=== PATIENT | female | born 1935 | race Two or more races ===

== ENCOUNTER 2019-03-07 01:23 | Inpatient (IN) | payer MEDICARE, OTHER ==
[~2019-03-07] VITALS: Ht 154.9 cm; Wt 63.2 kg
[2019-03-07] VITALS (7 sets, daily range): BP systolic 107–145; BP diastolic 61–86
[2019-03-07] MEDS ORDERED: [UNRECOGNIZED DRUG - REMARK] (01:39)
[2019-03-07] MEDS ORDERED: Isovue-300 100ml vial INJ PRN ×2 (02:00→15:13)
[2019-03-07 02:04] LABS: HEMATOCRIT 40.5 % (37.0-47.0); HEMOGLOBIN 13.8 G/DL (12.0-16.0); MEAN CORPUSCULAR VOLUME 88 FL (80-99); PLATELET COUNT 103 K/UL (150-450); RED BLOOD COUNT 4.62 M/UL (4.20-5.40); RED CELL DISTRIBUTION WIDTH 12.4 % (11.6-14.8); WHITE BLOOD COUNT 5.9 K/UL (4.8-10.8)
--- NOTE | 2019-03-07 02:05 | Emergency Room Report ---
History of Present Illness General Chief Complaint: Fever Source: Patient, Family Member Present Illness [facility] [place] patient is a 83-year-old female who presented after increased fever. Patient reports having increased temperature since two days ago. Patient had recently returned from a trip to [facility]. Patient had been present in [facility] approximately 3 weeks. She reports having increased lower extremity weakness to both legs since monday. Patient had been having increased dysuria for the past 3 months. She reports having one episode of vomiting. Patient reports having a rash to both legs which she describes as insect bites. Patient had previously had episodes of low back pain. She denies any recent trauma. Patient had normally been able to ambulate with a walker but would have been having increased difficulty with ambulation. Allergies: Coded Allergies: No Known Allergies (Unverified , 03/07/19) Patient History Past Medical History: see triage record Past Surgical History: other - catarract surger Reviewed Nursing Documentation: PMH: Agreed; PSxH: Agreed Review of Systems All Other Systems: negative except mentioned in HPI Physical Exam Vital Signs Date Time Temp Pulse Resp B/P (MAP) Pulse Ox O2 Delivery O2 Flow Rate FiO2 03/07/19 01:29 98.4 86 16 145/86 (105) 95 Room Air General Appearance: alert, GCS 15, non-toxic, obese, Chronically Ill Head: normocephalic Eyes: bilateral eye PERRL ENT: normal ENT inspection, normal voice Neck: limited range of motion Respiratory: lungs clear, normal breath sounds Cardiovascular #1: normal inspection, regular rate, rhythm Gastrointestinal: normal inspection, normal bowel sounds, non tender, soft Neurologic: normal inspection, alert, oriented x3, responsive, aqua ammonia operator III-XII nml as tested, motor weakness - bilateral lower extremity, able to move toes, pulses present, upper extremity normal strength Psychiatric: normal inspection Skin: normal inspection, normal color Medical Decision Making Diagnostic Impression: Primary Impression: Bilateral leg weakness Additional Impressions: Urinary tract infection Febrile illness, acute Dehydration ER Course Patient presents for fever and lower extremity weakness. Differential diagnosis include was not limited to Guillain-Pike, spinal cord injury, cauda equina syndrome, aortic aneurysm, vasculitis because of complexity of patient's case laboratory testing and imaging studies were ordered. Patient was noted to have some evidence of symptoms consistent with urinary infection. Patient was started on IV fluids as well as IV antibiotics. Patient was noted to have some movements to her lower extremity. CT of the chest abdomen pelvis read by radiology showed no acute abdominal or pelvic pathology. Urinary bladder appeared to be thickened. patient was noted to have weakness concerning for possible spinal cord compression and abscess. MRI was ordered and is currently pending. Dr. Jason Castanon was contacted for inpatient management due to panel physician. Labs Test 03/07/19 01:42 03/07/19 01:47 03/07/19 02:25 White Blood Count 5.9 K/UL (4.8-10.8) Red Blood Count 4.62 M/UL (4.20-5.40) Hemoglobin 13.8 G/DL (12.0-16.0) Hematocrit 40.5 % (37.0-47.0) Mean Corpuscular Volume 88 FL (80-99) Mean Corpuscular Hemoglobin 29.9 PG (27.0-31.0) Mean Corpuscular Hemoglobin Concent 34.1 G/DL (32.0-36.0) Red Cell Distribution Width 12.4 % (11.6-14.8) Platelet Count 103 K/UL (150-450) Mean Platelet Volume 8.7 FL (6.5-10.1) Neutrophils (%) (Auto) % (45.0-75.0) Lymphocytes (%) (Auto) % (20.0-45.0) Monocytes (%) (Auto) % (1.0-10.0) Eosinophils (%) (Auto) % (0.0-3.0) Basophils (%) (Auto) % (0.0-2.0) Differential Total Cells Counted 100 Neutrophils % (Manual) 83 % (45-75) Lymphocytes % (Manual) 9 % (20-45) Monocytes % (Manual) 3 % (1-10) Eosinophils % (Manual) 0 % (0-3) Basophils % (Manual) 0 % (0-2) Band Neutrophils 5 % (0-8) Platelet Estimate Decreased Platelet Morphology Normal Erythrocyte Sedimentation Rate 37 MM/HR (0-30) Lactic Acid Level 1.20 mmol/L (0.4-2.0) Troponin I 0.042 ng/mL (0.000-0.056) Sodium Level 138 MMOL/L (136-145) Potassium Level 3.8 MMOL/L (3.5-5.1) Chloride Level 102 MMOL/L (98-107) Carbon Dioxide Level 24 MMOL/L (21-32) Anion Gap 12 mmol/L (5-15) Blood Urea Nitrogen 26 mg/dL (7-18) Creatinine 0.7 MG/DL (0.55-1.30) Estimat Glomerular Filtration Rate mL/min (>60) Glucose Level 124 MG/DL (74-106) Calcium Level 8.4 MG/DL (8.5-10.1) Phosphorus Level 3.2 MG/DL (2.5-4.9) Magnesium Level 1.8 MG/DL (1.8-2.4) Total Bilirubin 0.2 MG/DL (0.2-1.0) Aspartate Amino Transf (AST/SGOT) 95 U/L (15-37) Alanine Aminotransferase (ALT/SGPT) 37 U/L (12-78) Alkaline Phosphatase 130 U/L (46-116) Total Creatine Kinase 314 U/L (26-308) Creatine Kinase MB 1.4 NG/ML (0.0-3.6) Creatine Kinase MB Relative Index 0.4 Total Protein 8.1 G/DL (6.4-8.2) Albumin 3.5 G/DL (3.4-5.0) Globulin 4.6 g/dL Albumin/Globulin Ratio 0.8 (1.0-2.7) Thyroid Stimulating Hormone (TSH) 3.800 uiU/mL (0.358-3.740) Urine Color Yellow Urine Appearance Clear Urine pH 5 (4.5-8.0) Urine Specific [place] 1.025 (1.005-1.035) Urine Protein 3+ (NEGATIVE) Urine Glucose (UA) Negative (NEGATIVE) Urine Ketones 1+ (NEGATIVE) Urine Blood 3+ (NEGATIVE) Urine Nitrite Negative (NEGATIVE) Urine Bilirubin Negative (NEGATIVE) Urine Urobilinogen Normal MG/DL (0.0-1.0) Urine Leukocyte Esterase 1+ (NEGATIVE) Urine RBC 5-10 /HPF (0 - 2) Urine WBC 5-10 /HPF (0 - 2) Urine Squamous Epithelial Cells Moderate /LPF (NONE/OCC) Urine Amorphous Sediment Few /LPF (NONE) Urine Bacteria Few /HPF (NONE) Urine Mucus Occasional /LPF Last Vital Signs Date Time Temp Pulse Resp B/P (MAP) Pulse Ox O2 Delivery O2 Flow Rate FiO2 03/07/19 01:29 98.4 86 16 145/86 (105) 95 Room Air Status: unchanged Disposition: ADMITTED INPATIENT Condition: Serious Referrals: NON PHYSICIAN (PCP) Gomez Villalba MD March 07, 2019 02:04
[2019-03-07 02:16] LABS: ANION GAP 12 mmol/L (5-15); BLOOD UREA NITROGEN 26 mg/dL (7-18); CALCIUM 8.4 MG/DL (8.5-10.1); CARBON DIOXIDE 24 MMOL/L (21-32); CHLORIDE 102 MMOL/L (98-107); CREATININE 0.7 MG/DL (0.55-1.30); POTASSIUM 3.8 MMOL/L (3.5-5.1); SODIUM 138 MMOL/L (136-145)
[2019-03-07 02:28] LABS: ALANINE AMINOTRANSFERASE 37 U/L (12-78); ALBUMIN 3.5 G/DL (3.4-5.0); ALBUMIN/GLOBULIN RATIO 0.8 (1.0-2.7); ALKALINE PHOSPHATASE 130 U/L (46-116); ASPARTATE AMINO TRANSFERASE 95 U/L (15-37); BILIRUBIN,TOTAL 0.2 MG/DL (0.2-1.0); CKMB 1.4 NG/ML (0.0-3.6); CREATINE KINASE 314 U/L (26-308); PHOSPHORUS 3.2 MG/DL (2.5-4.9)
--- NOTE | 2019-03-07 02:30 | NUR ---
ER Nurse Note: Pt came from home with wheelchair c/o weakness in her lower extremites and fever after her trip to [facility]. Per family member, the s/s started around 03/05. Pt a&ox4, VSS with no fever at triage; no sigsn of distress. Pt denies pain, chills. Upper extremites have range of motion, cap refill less than 3 secs, warm to touch. Lower extermities have passive range of motion, cool to touch. Pt incontenent. Skin intact; red rash like spots on her bilateral lower extremities. Pt states them as "insect bites". SLIV RT AC, patent. Villalobos cath inserted size 16 Fr; patent, bag off ground. All orders completed per ERMD orders. All safety measures met; will continue to monitor.
[2019-03-07 02:40] LABS: APPEARANCE,URINE CLEAR; BILIRUBIN, URINE NEGATIVE (NEGATIVE); GLUCOSE, URINE (UA) NEGATIVE (NEGATIVE); KETONES,URINE 1+ (NEGATIVE); LEUKOCYTE ESTERASE ,URINE 1+ (NEGATIVE); NITRITE,URINE NEGATIVE (NEGATIVE); PH,URINE 5 (4.5-8.0); PROTEIN,URINE 3+ (NEGATIVE); UROBILINOGEN,URINE NORMAL MG/DL (0.0-1.0)
[2019-03-07 02:44] LABS: COLOR,URINE YELLOW
[2019-03-07] MEDS ORDERED: cefTRIAXone 1 GM in NS 55 ML IVPB ONE (02:45)
--- NOTE | 2019-03-07 03:16 | NUR ---
ER Nurse Note: Infusing antibiotics vi IV. All orders completed per ERMD orders. Pt at radiology; awaiting pt and results. Pt stable Contact info: Myra Trujillo: Zeina Nieves:
[2019-03-07] MEDS ORDERED: Gadavist 7.5mMol/7.5ml vial IV PRN ×4 (04:30→15:13)
--- NOTE | 2019-03-07 04:56 | NUR ---
ER Nurse Note: Pt calm, cooperative, asleep. Pt VSS, no signs of distress. ERMD ordered MRI; MRI has been contacted and made aware. Pt has a room but cannot be transfered until 0700. All safety measures met; will continue to montior.
[2019-03-07] MEDS ORDERED: Nitroglycerin Subl 0.4mg tab SL PRN ×2 (06:30→15:15)
[2019-03-07] MEDS ORDERED: Miralax 17gm pkt ORAL PRN ×2 (06:30→15:15)
[2019-03-07] MEDS ORDERED: Albuterol/Ipratropium 3ml neb HHN PRN ×2 (06:30→15:15)
[2019-03-07] MEDS ORDERED: Morphine Sulfate 2mg/ml Inj(IV/IM USE ONLY) IVP PRN ×2 (06:30→15:15)
--- NOTE | 2019-03-07 06:51 | NUR ---
ER Nurse Note: Pt calm, asleep, no signs of distress, VSS. Pt awaiting MRI; notifed MRI again and Ofelia, Podiatric Physician aware of delay in transport.
--- NOTE | 2019-03-07 07:23 | NUR ---
ER Nurse Note: Hand off report given to ASHOK Almanza for continuity of care. Pt stable. Endorsed RN that MRI is pending.
--- NOTE | 2019-03-07 07:25 | NUR ---
ED Nurse Note: recieved pt on bed, pt stated that she has lower extremity weakness x 4 days ago, denies any pain. pt is afebrile at the moment. temp 98.3F oraL. Pt went to MRI with tech.
--- NOTE | 2019-03-07 08:00 | NUR ---
ED Nurse Note: pt is admitted to the hospital. report given to christine ledesma
--- NOTE | 2019-03-07 08:13 | NUR ---
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 UTI . DEHYDRATION VS: BP 145/86, P 86, T 98.4, RR 16, SpO2 95 BUN 26, GLUCOSE 124, URINE: Protein 3+, Blood 3+ IS:NS x1L IV CEFTRIAXONE 55ml IVPB ADMITTED TO SDU DCP: RETURN HOME
--- NOTE | 2019-03-07 08:22 | NUR ---
RADIOLOGY DEPT., CHEST X-RAY DONE BY ELVIA HANSON
[2019-03-07] MEDS ORDERED: Cefepime HCl 2 GM in D5W 110 ML IV SCH (09:00)
[2019-03-07] MEDS ORDERED: Vancomycin 1 GM in D5W 275 ML IVPB SCH (09:00)
[2019-03-07] MEDS ORDERED: Heparin 5000 units/ml inj SUBQ SCH (09:00)
--- NOTE | 2019-03-07 09:30 | NUR ---
ED Nurse Note: pt went back from mri, awaiting for reading/result
--- NOTE | 2019-03-07 09:33 | Diagnostic Imaging Report ---
Indication: Chest and abdominal pain Technique: Continuous helical transaxial imaging of the chest, abdomen and pelvis was obtained from the lung bases to the pubic symphysis during intravenous contrast administration. Multiple phases of enhancement obtained. Coronal 2-D reformats were also obtained. Study obtained in a Siemens sensation [address] Automatic Exposure Control was utilized. Total Dose length Product (DLP): 1224.[address] Dose Index Volume (CTDIvol): 15.27,14.04 mGy Comparison: None Findings: CT chest: Mild dependent posterior basal atelectasis demonstrated. There is a large hiatal hernia. Cardiomegaly is present. Aorta is calcified. Small nodes are seen in the axilla nonspecific. CT abdomen pelvis: The liver is moderately low in attenuation consistent with fatty infiltration. Spleen is normal in size. Gallbladder is mildly distended. There is a hypodensity in the right kidney which is probably a cyst. Appendix is normal. Bowel gas pattern is nonobstructive. Atrophic mildly calcified uterus noted. Villalobos catheter in good position. There is prominence and thickening of the wall the urinary bladder. The bladder is not distended well on this. There is no free fluid. The pancreas, spleen, adrenal glands are unremarkable. There is narrowing of intervertebral discs and accompanying endplate osteophyte formation. Hypertrophied facet joints also demonstrated.. IMPRESSION: No acute findings identified within the chest abdomen or pelvis. Large hiatal hernia Cardiomegaly and arterial vascular disease. Moderate fatty liver. Prominence of the urinary bladder wall. Correlate for cystitis. Villalobos catheter in good position. Degenerative changes of the spine Probable right renal cyst The CT scanner at [facility] is accredited by the [employer] and the scans are performed using dose optimization techniques as appropriate to a performed exam including Automatic Exposure control.
--- NOTE | 2019-03-07 10:08 | Diagnostic Imaging Report ---
Indication: 83-year-old female with increasing lower extremity weakness, back pain. Technique: MRI examination of the thoracic and lumbar spine was performed in a 1.5 Brandy magnet. Sequences obtained include sagittal and axial T1 and T2 fast spin echo, and sagittal STIR. Pre/Post gadolinium axial and sagittal T1 FSE w/ fat saturation obtained. Comparison: none Findings: MRI thoracic spine: Bone marrow signal and alignment are normal. The height of the vertebral bodies appears normal. There is no evidence of a compression fracture. There is no evidence of a disc herniation with normal appearance of the intervertebral discs. The spinal canal is widely patent at all levels within the thoracic spine. The spinal cord is normal in appearance. There is no cord edema, mass or myelomalacia. No epidural collection or other abnormal fluid collection identified. Mild hypertrophic spurring involving the thoracic facets noted at multiple levels. There is no evidence of significant foraminal stenosis or cord compression. No abnormal enhancement is identified. T7 vertebral hemangioma noted. There is a large hiatal hernia. Trace basilar pleural effusions are present. MRI lumbar spine: Bone marrow signal is normal. There is no evidence of bone marrow replacement, contusion or edema, fracture. The visualized part of the distal spinal cord is normal in appearance. Conus medullaris is seen at about lower part of L1 vertebra. There is no abnormal cord or nerve root enhancement. There are [id number] degenerative changes which will be described. The L1-2 disc is normal in appearance. There is no stenosis of the canal or foramen. L2-3 shows mild hypertrophy of the lumbar facets. No central or foraminal stenosis demonstrated. L3-4 shows mild central stenosis and narrowing of the lateral recesses due to facet arthropathy. No foraminal stenosis appreciated. L4-5 demonstrates mild central stenosis, narrowing of the lateral recess due to facet arthropathy and redundancy of ligamentum flavum. There is also mild concentric disc bulge associated moderate narrowing of the intervertebral disc and desiccation of the disc with anterolisthesis mild in degree at this level. Moderate right foraminal stenosis noted. L5-S1: The disc is normal in appearance. There is no central stenosis. Facet arthropathy noted. No significant foraminal stenosis appreciated. IMPRESSION: No evidence of compression of the spinal cord or cauda equina. No intrinsic cord abnormality, edema or other neuropathy identified. Moderate degenerative changes of the mid to lower lumbar spine characterized by degenerative disc disease and facet arthropathy. Disease is most severe at L4-5 which shows evidence of central spinal stenosis and narrowing of the lateral recess and moderate right foraminal stenosis. L3-4 Central stenosis also demonstrated. Other incidental findings as above. Please refer to the CT chest abdomen pelvis report as well
--- NOTE | 2019-03-07 10:40 | NUR ---
ED Nurse Note: pt was transfered to sdu 241 and endorsed to christine ledesma. pt was transported by geneva ledesma connected to monitor, pt vs stable.
--- NOTE | 2019-03-07 11:01 | NUR ---
NURSE NOTES: Received patient from ER. Pt is alert and oriented X4 in English. Heart Monitor applied. IV patent and intact. Villalobos is draining well. Pt is afebrile. Bed is in lowest position, side rails up X2, and call light is within reach. Will continue to monitor.
--- NOTE | 2019-03-07 11:30 | NUR ---
NURSE NOTES: Called pharmacy regarding retiming medications as the pt did not arrive to the floor until 11am. Per pharmacist, give "okay to give med, just put note explaining why it was late".
--- NOTE | 2019-03-07 11:46 | Consultation ---
History of Present Illness General Date patient seen: March 07, 2019 Chief Complaint: Fever Present Illness HPI 83 year old female without significant PMHx presented to ER with CC of fever and increasing weakness in lower extremities. She was able previously to walk with a walker but recently she is feeling weaker and unable to walk any more. She is just got back from [facility]. She had episode of fever over there. she was afebrile in ER. She is admitted for further evaluation. Allergies: Coded Allergies: No Known Allergies (Unverified , 03/07/19) Medication History Miscellaneous Medications ["glaucoma eye drops"], (Reported) Patient History Healthcare decision maker Resuscitation status Advanced Directive on File Past Medical/Surgical History Past Medical/Surgical History: (1) No significant past medical history Review of Systems Constitutional: Reports: weakness All Other Systems: negative except mentioned in HPI Physical Exam General Appearance: WD/WN Lines, tubes and drains: peripheral HEENT: normocephalic, anicteric Neck: non-tender, supple, limited range of motion Respiratory/Chest: lungs clear Breasts: no masses Cardiovascular/Chest: normal rate Abdomen: normal bowel sounds Last 24 Hour Vital Signs Date Time Temp Pulse Resp B/P (MAP) Pulse Ox O2 Delivery O2 Flow Rate FiO2 03/07/19 10:40 98.3 82 16 115/75 99 Room Air 03/07/19 09:45 98.3 82 16 115/75 99 Room Air 03/07/19 06:49 98.3 83 18 107/65 99 Room Air 03/07/19 04:12 76 15 125/68 98 Room Air 03/07/19 02:10 86 16 Room Air 03/07/19 02:10 98.4 78 16 145/86 95 Room Air 03/07/19 01:29 98.4 86 16 145/86 (105) 95 Room Air Intake and Output 03/06/19 03/07/19 19:00 07:00 Intake Total 1055 ml Balance 1055 ml Intake IV Total 1055 ml Laboratory Tests Test 03/07/19 01:42 03/07/19 01:47 03/07/19 02:25 White Blood Count 5.9 K/UL (4.8-10.8) Red Blood Count 4.62 M/UL (4.20-5.40) Hemoglobin 13.8 G/DL (12.0-16.0) Hematocrit 40.5 % (37.0-47.0) Mean Corpuscular Volume 88 FL (80-99) Mean Corpuscular Hemoglobin 29.9 PG (27.0-31.0) Mean Corpuscular Hemoglobin Concent 34.1 G/DL (32.0-36.0) Red Cell Distribution Width 12.4 % (11.6-14.8) Platelet Count 103 K/UL (150-450) L Mean Platelet Volume 8.7 FL (6.5-10.1) Neutrophils (%) (Auto) % (45.0-75.0) Lymphocytes (%) (Auto) % (20.0-45.0) Monocytes (%) (Auto) % (1.0-10.0) Eosinophils (%) (Auto) % (0.0-3.0) Basophils (%) (Auto) % (0.0-2.0) Differential Total Cells Counted 100 Neutrophils % (Manual) 83 % (45-75) H Lymphocytes % (Manual) 9 % (20-45) L Monocytes % (Manual) 3 % (1-10) Eosinophils % (Manual) 0 % (0-3) Basophils % (Manual) 0 % (0-2) Band Neutrophils 5 % (0-8) Platelet Estimate Decreased L Platelet Morphology Normal Erythrocyte Sedimentation Rate 37 MM/HR (0-30) H Lactic Acid Level 1.20 mmol/L (0.4-2.0) Troponin I 0.042 ng/mL (0.000-0.056) Sodium Level 138 MMOL/L (136-145) Potassium Level 3.8 MMOL/L (3.5-5.1) Chloride Level 102 MMOL/L (98-107) Carbon Dioxide Level 24 MMOL/L (21-32) Anion Gap 12 mmol/L (5-15) Blood Urea Nitrogen 26 mg/dL (7-18) H Creatinine 0.7 MG/DL (0.55-1.30) Estimat Glomerular Filtration Rate mL/min (>60) Glucose Level 124 MG/DL (74-106) H Calcium Level 8.4 MG/DL (8.5-10.1) L Phosphorus Level 3.2 MG/DL (2.5-4.9) Magnesium Level 1.8 MG/DL (1.8-2.4) Total Bilirubin 0.2 MG/DL (0.2-1.0) Aspartate Amino Transf (AST/SGOT) 95 U/L (15-37) H Alanine Aminotransferase (ALT/SGPT) 37 U/L (12-78) Alkaline Phosphatase 130 U/L (46-116) H Total Creatine Kinase 314 U/L (26-308) H Creatine Kinase MB 1.4 NG/ML (0.0-3.6) Creatine Kinase MB Relative Index 0.4 Total Protein 8.1 G/DL (6.4-8.2) Albumin 3.5 G/DL (3.4-5.0) Globulin 4.6 g/dL Albumin/Globulin Ratio 0.8 (1.0-2.7) L Thyroid Stimulating Hormone (TSH) 3.800 uiU/mL (0.358-3.740) Urine Color Yellow Urine Appearance Clear Urine pH 5 (4.5-8.0) Urine Specific [place] 1.025 (1.005-1.035) Urine Protein 3+ (NEGATIVE) H Urine Glucose (UA) Negative (NEGATIVE) Urine Ketones 1+ (NEGATIVE) H Urine Blood 3+ (NEGATIVE) H Urine Nitrite Negative (NEGATIVE) Urine Bilirubin Negative (NEGATIVE) Urine Urobilinogen Normal MG/DL (0.0-1.0) Urine Leukocyte Esterase 1+ (NEGATIVE) H Urine RBC 5-10 /HPF (0 - 2) H Urine WBC 5-10 /HPF (0 - 2) H Urine Squamous Epithelial Cells Moderate /LPF (NONE/OCC) H Urine Amorphous Sediment Few /LPF (NONE) H Urine Bacteria Few /HPF (NONE) Urine Mucus Occasional /LPF Height (Feet): 5 Height (Inches): 1.00 Weight (Pounds): 150 Medications Current Medications Medications (Trade) Dose Ordered Sig/Lisette Route PRN Reason Start Time Stop Time Status Last Admin Dose Admin Acetaminophen (Tylenol) 650 mg Q4H PRN ORAL fever 03/07/19 06:30 04/06/19 06:29 Albuterol/ Ipratropium (Albuterol/ Ipratropium) 3 ml Q4H PRN HHN Shortness of Breath 03/07/19 06:30 03/12/19 06:29 Cefepime HCl 2 gm/ Dextrose 110 ml @ 220 mls/hr Q24H IV 5/23/19 09:00 03/14/19 08:59 Gadobutrol (Gadavist) 7.5 mmol NOW PRN IV Radiology Procedure 03/07/19 04:30 03/11/19 04:20 Gadobutrol (Gadavist) 7.5 mmol NOW PRN IV Radiology Procedure 03/07/19 06:30 03/11/19 06:25 Heparin Sodium (Porcine) (Heparin 5000 units/ml) 5,000 units EVERY 12 HOURS SUBQ 03/07/19 09:00 04/06/19 08:59 Iopamidol (Isovue-300 100ml) 100 ml NOW PRN INJ Radiology Procedure 03/07/19 02:00 Morphine Sulfate (Morphine Sulfate) 2 mg Q4H PRN IVP Moderate Pain (Pain Scale 4-6) 03/07/19 06:30 03/14/19 06:29 Nitroglycerin (Ntg) 0.4 mg Q5M PRN SL Prn Chest Pain 03/07/19 06:30 04/06/19 06:29 Ondansetron HCl (Zofran) 4 mg Q6H PRN IVP Nausea & Vomiting 03/07/19 06:30 04/06/19 06:29 Polyethylene Glycol (Miralax) 17 gm DAILYPRN PRN ORAL Constipation 03/07/19 06:30 04/06/19 06:29 Temazepam (Restoril) 15 mg HSPRN PRN ORAL Insomnia 03/07/19 06:30 03/14/19 06:29 Vancomycin HCl 1 gm/Dextrose 275 ml @ 183.3 mls/ hr Q24H IVPB 03/07/19 09:00 03/12/19 08:59 03/07/19 11:31 Assessment/Plan Problem List: (1) Febrile illness, acute ICD Codes: R50.9 - Fever, unspecified SNOMED: 004504038 (2) Recent foreign travel ICD Codes: Z78.9 - Other specified health status SNOMED: 348573155 (3) Bilateral leg weakness ICD Codes: R29.898 - Other symptoms and signs involving the musculoskeletal system SNOMED: 2128919 Assessment/Plan: delcid culture iv abx ID evaluation check electrolytes MRI of C and L spine reviewed, no cord compression dvt prophylaxis. Jenny Wilkerson MD March 07, 2019 11:46
--- NOTE | 2019-03-07 12:03 | Diagnostic Imaging Report ---
Indication: Dyspnea Comparison: None A single view chest radiograph was obtained. Findings: Hiatal hernia noted. Lungs are clear. Bones are slightly osteopenic. IMPRESSION: No acute disease
--- NOTE | 2019-03-07 12:09 | NUR ---
NURSE NOTES: Called pharmacy as i mixed vanco instead of cefapime, Ok to discard vanco and they will bring another one up for tomorrow
--- NOTE | 2019-03-07 12:48 | Consultation ---
History of Present Illness General Date patient seen: March 07, 2019 Chief Complaint: Fever Present Illness HPI 83 y/o F with hx of presents to ED on 03/07 with fever, and 3 days onset of increasing Lower extremity weakness. Patient was able to walk with a walker previously but recently feeling weaker and unable to walk any more. She recently got back from [facility]; she had an episode of fever over there. She was in [facility] for 3 weeks. Also endorses increased dysuria for the past 3 months. One episode of vomiting. Rash in both legs which she describes as insect bites Allergies: Coded Allergies: No Known Allergies (Unverified , 03/07/19) Medication History Miscellaneous Medications ["glaucoma eye drops"], (Reported) Patient History Healthcare decision maker Resuscitation status Full Code Advanced Directive on File Patient History Narrative PMhx: as above Shx: reviewed Fhx: non contributory Review of Systems All Other Systems: negative except mentioned in HPI Physical Exam Physical Exam Narrative General Appearance: WD/WN Lines, tubes and drains: peripheral HEENT: normocephalic, anicteric Neck: non-tender, supple, limited range of motion Respiratory/Chest: lungs clear Cardiovascular/Chest: normal rate Abdomen: normal bowel sounds Last 24 Hour Vital Signs Date Time Temp Pulse Resp B/P (MAP) Pulse Ox O2 Delivery O2 Flow Rate FiO2 03/07/19 12:32 Room Air 03/07/19 12:12 Room Air 03/07/19 11:44 73 03/07/19 10:40 98.3 82 16 115/75 99 Room Air 03/07/19 09:45 98.3 82 16 115/75 99 Room Air 03/07/19 06:49 98.3 83 18 107/65 99 Room Air 03/07/19 04:12 76 15 125/68 98 Room Air 03/07/19 02:10 86 16 Room Air 03/07/19 02:10 98.4 78 16 145/86 95 Room Air 03/07/19 01:29 98.4 86 16 145/86 (105) 95 Room Air Intake and Output 03/06/19 03/07/19 19:00 07:00 Intake Total 1055 ml Balance 1055 ml Intake IV Total 1055 ml Laboratory Tests Test 03/07/19 01:42 03/07/19 01:47 03/07/19 02:25 White Blood Count 5.9 K/UL (4.8-10.8) Red Blood Count 4.62 M/UL (4.20-5.40) Hemoglobin 13.8 G/DL (12.0-16.0) Hematocrit 40.5 % (37.0-47.0) Mean Corpuscular Volume 88 FL (80-99) Mean Corpuscular Hemoglobin 29.9 PG (27.0-31.0) Mean Corpuscular Hemoglobin Concent 34.1 G/DL (32.0-36.0) Red Cell Distribution Width 12.4 % (11.6-14.8) Platelet Count 103 K/UL (150-450) L Mean Platelet Volume 8.7 FL (6.5-10.1) Neutrophils (%) (Auto) % (45.0-75.0) Lymphocytes (%) (Auto) % (20.0-45.0) Monocytes (%) (Auto) % (1.0-10.0) Eosinophils (%) (Auto) % (0.0-3.0) Basophils (%) (Auto) % (0.0-2.0) Differential Total Cells Counted 100 Neutrophils % (Manual) 83 % (45-75) H Lymphocytes % (Manual) 9 % (20-45) L Monocytes % (Manual) 3 % (1-10) Eosinophils % (Manual) 0 % (0-3) Basophils % (Manual) 0 % (0-2) Band Neutrophils 5 % (0-8) Platelet Estimate Decreased L Platelet Morphology Normal Erythrocyte Sedimentation Rate 37 MM/HR (0-30) H Lactic Acid Level 1.20 mmol/L (0.4-2.0) Troponin I 0.042 ng/mL (0.000-0.056) Sodium Level 138 MMOL/L (136-145) Potassium Level 3.8 MMOL/L (3.5-5.1) Chloride Level 102 MMOL/L (98-107) Carbon Dioxide Level 24 MMOL/L (21-32) Anion Gap 12 mmol/L (5-15) Blood Urea Nitrogen 26 mg/dL (7-18) H Creatinine 0.7 MG/DL (0.55-1.30) Estimat Glomerular Filtration Rate mL/min (>60) Glucose Level 124 MG/DL (74-106) H Calcium Level 8.4 MG/DL (8.5-10.1) L Phosphorus Level 3.2 MG/DL (2.5-4.9) Magnesium Level 1.8 MG/DL (1.8-2.4) Total Bilirubin 0.2 MG/DL (0.2-1.0) Aspartate Amino Transf (AST/SGOT) 95 U/L (15-37) H Alanine Aminotransferase (ALT/SGPT) 37 U/L (12-78) Alkaline Phosphatase 130 U/L (46-116) H Total Creatine Kinase 314 U/L (26-308) H Creatine Kinase MB 1.4 NG/ML (0.0-3.6) Creatine Kinase MB Relative Index 0.4 Total Protein 8.1 G/DL (6.4-8.2) Albumin 3.5 G/DL (3.4-5.0) Globulin 4.6 g/dL Albumin/Globulin Ratio 0.8 (1.0-2.7) L Thyroid Stimulating Hormone (TSH) 3.800 uiU/mL (0.358-3.740) Urine Color Yellow Urine Appearance Clear Urine pH 5 (4.5-8.0) Urine Specific [place] 1.025 (1.005-1.035) Urine Protein 3+ (NEGATIVE) H Urine Glucose (UA) Negative (NEGATIVE) Urine Ketones 1+ (NEGATIVE) H Urine Blood 3+ (NEGATIVE) H Urine Nitrite Negative (NEGATIVE) Urine Bilirubin Negative (NEGATIVE) Urine Urobilinogen Normal MG/DL (0.0-1.0) Urine Leukocyte Esterase 1+ (NEGATIVE) H Urine RBC 5-10 /HPF (0 - 2) H Urine WBC 5-10 /HPF (0 - 2) H Urine Squamous Epithelial Cells Moderate /LPF (NONE/OCC) H Urine Amorphous Sediment Few /LPF (NONE) H Urine Bacteria Few /HPF (NONE) Urine Mucus Occasional /LPF Height (Feet): 5 Height (Inches): 1.00 Weight (Pounds): 150 Medications Current Medications Medications (Trade) Dose Ordered Sig/Lisette Route PRN Reason Start Time Stop Time Status Last Admin Dose Admin Acetaminophen (Tylenol) 650 mg Q4H PRN ORAL fever 03/07/19 06:30 04/06/19 06:29 Albuterol/ Ipratropium (Albuterol/ Ipratropium) 3 ml Q4H PRN HHN Shortness of Breath 03/07/19 06:30 03/12/19 06:29 Cefepime HCl 2 gm/ Dextrose 110 ml @ 220 mls/hr Q24H IV 03/07/19 09:00 03/14/19 08:59 03/07/19 11:35 Gadobutrol (Gadavist) 7.5 mmol NOW PRN IV Radiology Procedure 03/07/19 04:30 03/11/19 04:20 Gadobutrol (Gadavist) 7.5 mmol NOW PRN IV Radiology Procedure 03/07/19 06:30 03/11/19 06:25 Heparin Sodium (Porcine) (Heparin 5000 units/ml) 5,000 units EVERY 12 HOURS SUBQ 03/07/19 09:00 04/06/19 08:59 Iopamidol (Isovue-300 100ml) 100 ml NOW PRN INJ Radiology Procedure 03/07/19 02:00 Morphine Sulfate (Morphine Sulfate) 2 mg Q4H PRN IVP Moderate Pain (Pain Scale 4-6) 03/07/19 06:30 03/14/19 06:29 Nitroglycerin (Ntg) 0.4 mg Q5M PRN SL Prn Chest Pain 03/07/19 06:30 04/06/19 06:29 Ondansetron HCl (Zofran) 4 mg Q6H PRN IVP Nausea & Vomiting 03/07/19 06:30 04/06/19 06:29 Polyethylene Glycol (Miralax) 17 gm DAILYPRN PRN ORAL Constipation 03/07/19 06:30 04/06/19 06:29 Temazepam (Restoril) 15 mg HSPRN PRN ORAL Insomnia 03/07/19 06:30 03/14/19 06:29 Vancomycin HCl 1 gm/Dextrose 275 ml @ 183.3 mls/ hr Q24H IVPB 03/07/19 09:00 03/12/19 08:59 03/07/19 11:31 Assessment/Plan Assessment/Plan: Abx: Ceftriaxone x1 03/07 IV Vancomycin 03/07- Cefepime 03/07- Assessment: Febrile illness (not currently febrile) LE weakness- r/o GBS, r/o ZIka, dengue (given recent travel to [facility]) -MRI t/ L spine w/wo: No evidence of compression of the spinal cord or cauda equina. No intrinsic cord abnormality, edema or other neuropathy identified. Moderate degenerative changes of the mid to lower lumbar spine characterized by degenerative disc disease and facet arthropathy. Disease is most severe at L4-5 which shows evidence of central spinal stenosis and narrowing of the lateral recess and moderate right foraminal stenosis. L3-4 Central stenosis also demonstrated. Other incidental findings as above. -CT: c/abd/p w/: No acute findings identified within the chest abdomen or pelvis. Large hiatal hernia. Cardiomegaly and arterial vascular disease. Moderate fatty liver. Prominence of the urinary bladder wall. Correlate for cystitis. Villalobos catheter in good position.Degenerative changes of the spine. Probable right renal cyst -CXR: No acute disease Plan: -Continue empiric IV Vancomycin #1 and switch Cefepime #1 to Ceftriaxone for now pending LP -will d/c if CSF not consistent with bacterial meningitis which i have low suspicion for -Lumbar puncture- patient currently refusing LP- I explained why it is needed and risks and benefits. Daughter will talk with patient in more detail to see if patient will be agreeable with procedure. -CSF fluid analysis, culture, VDRL, Cocci, CrAg, Dengue, Zika, [place] PCR , oligoclonal bands, MBP, WNV ab -HIV ab sc and VL, RPR, Cocci ab, CrAg, Zika/Dengue/[place]ungu[place] serology, influenza sc, WNV ab serum -f/u cx -Monitor CBC/CMP, temperatures -Neuro eval Thank you for this consulation. [facility] continue to follow along with you. Discussed with Olga Lidia Myers M.D. March 07, 2019 12:47
--- NOTE | 2019-03-07 13:03 | Consultation ---
History of Present Illness General Date patient seen: March 07, 2019 Chief Complaint: LE Weakness/ Fever Present Illness HPI Rosa Cho is a 83 year old Italian speaking female without significant PMHx who presented to ER with CC of fever and increasing weakness in lower extremities. She was able previously to walk with a walker but recently she is feeling weaker and unable to walk any more. She also reports that she recently traveled to [facility] and experienced an episode of fever over there. She is admitted for further workup at this time. She is alert and oriented, able to provide her own history. She also admits to some baseline left leg weakness, stating that she was using a rollator/ 4 wf to ambulate previously but has recently become even to weak to do that. Allergies: Coded Allergies: No Known Allergies (Unverified , 03/07/19) Medication History Miscellaneous Medications ["glaucoma eye drops"], (Reported) Patient History History Provided By: Patient, Medical Record Healthcare decision maker Resuscitation status Full Code Advanced Directive on File Past Medical/Surgical History Past Medical/Surgical History: (1) No significant past medical history Social History Social History: (1) Recent foreign travel Review of Systems Constitutional: Reports: see HPI, chills, sweats, fever, weakness Eye: Denies: no symptoms, see HPI, eye pain, blurred vision, tearing, double vision, nose pain, nose congestion, acuity changes, discharge, other ENT: Denies: no symptoms, see HPI, ear pain, ear discharge, nose pain, nose congestion, throat pain, throat swelling, mouth pain, hearing loss, nasal discharge, other Respiratory: Denies: no symptoms, see HPI, cough, orthopnea, shortness of breath, stridor, wheezing, NEELY, sputum, other Cardiovascular: Denies: no symptoms, see HPI, chest pain, edema, palpitations, syncope, PND, other Gastrointestinal: Denies: no symptoms, see HPI, abdominal pain, constipation, diarrhea, nausea, vomiting, melena, hematemesis, other Genitourinary: Denies: no symptoms, see HPI, discharge, dysuria, frequency, hematuria, pain, retention, incontinence, urgency, vag bleed/dc, other Musculoskeletal: Reports: other; Denies: no symptoms, see HPI, back pain, gout , joint pain, joint swelling, muscle pain, muscle stiffness Skin: Denies: no symptoms, see HPI, rash, change in color, change in hair/nails , dryness, lesions, other Psychiatric: Denies: no symptoms, see HPI, prior hx, anxiety, depressed feelings, emotional problems, SI, HI, hallucinations, other Neurological: Reports: focal weakness - LE weakness, left weakness > right at baseline ; Denies: no symptoms, see HPI, headache, numbness, paresthesia, seizure, tingling, tremors, syncope, dizziness, other Endocrine: Denies: no symptoms, see HPI, excessive sweating, flushing, intolerance to temperature, increased thirst, increased urine, unexplained weight loss, other Hematologic/Lymphatic: Denies: no symptoms, see HPI, anemia, blood clots, easy bleeding, easy bruising, swollen glands, diathesis, other Physical Exam General Appearance: WD/WN, no apparent distress, alert, alert oriented x3 Lines, tubes and drains: peripheral HEENT: normocephalic, atraumatic, anicteric, mucous membranes moist, PERRL, EOMI, supple, no JVD Neck: non-tender Respiratory/Chest: lungs clear, normal breath sounds, no respiratory distress, no accessory muscle use Cardiovascular/Chest: normal peripheral pulses, no JVD Extremities: normal range of motion, non-tender, normal inspection, no calf tenderness, normal capillary refill, non-pitting, no edema, no cyanosis Skin Exam: normal pigmentation, warm/dry 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 No facial weakness or tongue deviation Speech is in Italian but all normal. Last 24 Hour Vital Signs Date Time Temp Pulse Resp B/P (MAP) Pulse Ox O2 Delivery O2 Flow Rate FiO2 03/07/19 12:46 97.0 75 20 132/61 (84) 96 03/07/19 12:32 Room Air 03/07/19 12:12 Room Air 03/07/19 11:44 73 03/07/19 10:45 97.8 77 18 118/77 (91) 100 03/07/19 10:40 98.3 82 16 115/75 99 Room Air 03/07/19 09:45 98.3 82 16 115/75 99 Room Air 03/07/19 06:49 98.3 83 18 107/65 99 Room Air 03/07/19 04:12 76 15 125/68 98 Room Air 03/07/19 02:10 86 16 Room Air 03/07/19 02:10 98.4 78 16 145/86 95 Room Air 03/07/19 01:29 98.4 86 16 145/86 (105) 95 Room Air Intake and Output 03/06/19 03/07/19 19:00 07:00 Intake Total 1055 ml Balance 1055 ml Intake IV Total 1055 ml Laboratory Tests Test 03/07/19 01:42 03/07/19 01:47 03/07/19 02:25 White Blood Count 5.9 K/UL (4.8-10.8) Red Blood Count 4.62 M/UL (4.20-5.40) Hemoglobin 13.8 G/DL (12.0-16.0) Hematocrit 40.5 % (37.0-47.0) Mean Corpuscular Volume 88 FL (80-99) Mean Corpuscular Hemoglobin 29.9 PG (27.0-31.0) Mean Corpuscular Hemoglobin Concent 34.1 G/DL (32.0-36.0) Red Cell Distribution Width 12.4 % (11.6-14.8) Platelet Count 103 K/UL (150-450) L Mean Platelet Volume 8.7 FL (6.5-10.1) Neutrophils (%) (Auto) % (45.0-75.0) Lymphocytes (%) (Auto) % (20.0-45.0) Monocytes (%) (Auto) % (1.0-10.0) Eosinophils (%) (Auto) % (0.0-3.0) Basophils (%) (Auto) % (0.0-2.0) Differential Total Cells Counted 100 Neutrophils % (Manual) 83 % (45-75) H Lymphocytes % (Manual) 9 % (20-45) L Monocytes % (Manual) 3 % (1-10) Eosinophils % (Manual) 0 % (0-3) Basophils % (Manual) 0 % (0-2) Band Neutrophils 5 % (0-8) Platelet Estimate Decreased L Platelet Morphology Normal Erythrocyte Sedimentation Rate 37 MM/HR (0-30) H Lactic Acid Level 1.20 mmol/L (0.4-2.0) Troponin I 0.042 ng/mL (0.000-0.056) Sodium Level 138 MMOL/L (136-145) Potassium Level 3.8 MMOL/L (3.5-5.1) Chloride Level 102 MMOL/L (98-107) Carbon Dioxide Level 24 MMOL/L (21-32) Anion Gap 12 mmol/L (5-15) Blood Urea Nitrogen 26 mg/dL (7-18) H Creatinine 0.7 MG/DL (0.55-1.30) Estimat Glomerular Filtration Rate mL/min (>60) Glucose Level 124 MG/DL (74-106) H Calcium Level 8.4 MG/DL (8.5-10.1) L Phosphorus Level 3.2 MG/DL (2.5-4.9) Magnesium Level 1.8 MG/DL (1.8-2.4) Total Bilirubin 0.2 MG/DL (0.2-1.0) Aspartate Amino Transf (AST/SGOT) 95 U/L (15-37) H Alanine Aminotransferase (ALT/SGPT) 37 U/L (12-78) Alkaline Phosphatase 130 U/L (46-116) H Total Creatine Kinase 314 U/L (26-308) H Creatine Kinase MB 1.4 NG/ML (0.0-3.6) Creatine Kinase MB Relative Index 0.4 Total Protein 8.1 G/DL (6.4-8.2) Albumin 3.5 G/DL (3.4-5.0) Globulin 4.6 g/dL Albumin/Globulin Ratio 0.8 (1.0-2.7) L Thyroid Stimulating Hormone (TSH) 3.800 uiU/mL (0.358-3.740) Urine Color Yellow Urine Appearance Clear Urine pH 5 (4.5-8.0) Urine Specific [place] 1.025 (1.005-1.035) Urine Protein 3+ (NEGATIVE) H Urine Glucose (UA) Negative (NEGATIVE) Urine Ketones 1+ (NEGATIVE) H Urine Blood 3+ (NEGATIVE) H Urine Nitrite Negative (NEGATIVE) Urine Bilirubin Negative (NEGATIVE) Urine Urobilinogen Normal MG/DL (0.0-1.0) Urine Leukocyte Esterase 1+ (NEGATIVE) H Urine RBC 5-10 /HPF (0 - 2) H Urine WBC 5-10 /HPF (0 - 2) H Urine Squamous Epithelial Cells Moderate /LPF (NONE/OCC) H Urine Amorphous Sediment Few /LPF (NONE) H Urine Bacteria Few /HPF (NONE) Urine Mucus Occasional /LPF Height (Feet): 5 Height (Inches): 1.00 Weight (Pounds): 150 Medications Current Medications Medications (Trade) Dose Ordered Sig/Lisette Route PRN Reason Start Time Stop Time Status Last Admin Dose Admin Acetaminophen (Tylenol) 650 mg Q4H PRN ORAL fever 03/07/19 06:30 04/06/19 06:29 Albuterol/ Ipratropium (Albuterol/ Ipratropium) 3 ml Q4H PRN HHN Shortness of Breath 03/07/19 06:30 03/12/19 06:29 Cefepime HCl 2 gm/ Dextrose 110 ml @ 220 mls/hr Q24H IV 03/07/19 09:00 03/14/19 08:59 03/07/19 11:35 Gadobutrol (Gadavist) 7.5 mmol NOW PRN IV Radiology Procedure 03/07/19 04:30 03/11/19 04:20 Gadobutrol (Gadavist) 7.5 mmol NOW PRN IV Radiology Procedure 03/07/19 06:30 03/11/19 06:25 Heparin Sodium (Porcine) (Heparin 5000 units/ml) 5,000 units EVERY 12 HOURS SUBQ 03/07/19 09:00 04/06/19 08:59 Iopamidol (Isovue-300 100ml) 100 ml NOW PRN INJ Radiology Procedure 03/07/19 02:00 Morphine Sulfate (Morphine Sulfate) 2 mg Q4H PRN IVP Moderate Pain (Pain Scale 4-6) 03/07/19 06:30 03/14/19 06:29 Nitroglycerin (Ntg) 0.4 mg Q5M PRN SL Prn Chest Pain 03/07/19 06:30 04/06/19 06:29 Ondansetron HCl (Zofran) 4 mg Q6H PRN IVP Nausea & Vomiting 03/07/19 06:30 04/06/19 06:29 Polyethylene Glycol (Miralax) 17 gm DAILYPRN PRN ORAL Constipation 03/07/19 06:30 04/06/19 06:29 Temazepam (Restoril) 15 mg HSPRN PRN ORAL Insomnia 03/07/19 06:30 03/14/19 06:29 Vancomycin HCl 1 gm/Dextrose 275 ml @ 183.3 mls/ hr Q24H IVPB 03/07/19 09:00 03/12/19 08:59 03/07/19 11:31 Assessment/Plan Problem List: (1) Thrombocytopenia ICD Codes: D69.6 - Thrombocytopenia, unspecified SNOMED: 186350238 (2) Dehydration ICD Codes: E86.0 - Dehydration SNOMED: 32871454 (3) Urinary tract infection ICD Codes: N39.0 - Urinary tract infection, site not specified SNOMED: 49776428 (4) Bilateral leg weakness Assessment & Plan: MRI thoracic spine: Bone marrow signal and alignment are normal. The height of the vertebral bodies appears normal. There is no evidence of a compression fracture. There is no evidence of a disc herniation with normal appearance of the intervertebral discs. The spinal canal is widely patent at all levels within the thoracic spine. The spinal cord is normal in appearance. There is no cord edema, mass or myelomalacia. No epidural collection or other abnormal fluid collection identified. Mild hypertrophic spurring involving the thoracic facets noted at multiple levels. There is no evidence of significant foraminal stenosis or cord compression. No abnormal enhancement is identified. T7 vertebral hemangioma noted. There is a large hiatal hernia. Trace basilar pleural effusions are present. MRI lumbar spine: Bone marrow signal is normal. There is no evidence of bone marrow replacement, contusion or edema, fracture. The visualized part of the distal spinal cord is normal in appearance. Conus medullaris is seen at about lower part of L1 vertebra. There is no abnormal cord or nerve root enhancement. There are [id number] degenerative changes which will be described. The L1-2 disc is normal in appearance. There is no stenosis of the canal or foramen. L2-3 shows mild hypertrophy of the lumbar facets. No central or foraminal stenosis demonstrated. L3-4 shows mild central stenosis and narrowing of the lateral recesses due to facet arthropathy. No foraminal stenosis appreciated. L4-5 demonstrates mild central stenosis, narrowing of the lateral recess due to facet arthropathy and redundancy of ligamentum flavum. There is also mild concentric disc bulge associated moderate narrowing of the intervertebral disc and desiccation of the disc with anterolisthesis mild in degree at this level. Moderate right foraminal stenosis noted. L5-S1: The disc is normal in appearance. There is no central stenosis. Facet arthropathy noted. No significant foraminal stenosis appreciated. IMPRESSION: No evidence of compression of the spinal cord or cauda equina. No intrinsic cord abnormality, edema or other neuropathy identified. Moderate degenerative changes of the mid to lower lumbar spine characterized by degenerative disc disease and facet arthropathy. Disease is most severe at L4-5 which shows evidence of central spinal stenosis and narrowing of the lateral recess and moderate right foraminal stenosis. L3-4 Central stenosis also demonstrated. Other incidental findings as above. Please refer to the CT chest abdomen pelvis report as well No clear evidence for weakness demonstrated in patient clinically given normal cord signal on MRI ICD Codes: R29.898 - Other symptoms and signs involving the musculoskeletal system SNOMED: 9531693 (5) Febrile illness, acute Assessment & Plan: Consider LP if patient becomes febrile, especially without evidence of peripheral leukocytosis. DDX Encephalitis / Meningitis vs Ischemic Stroke ICD Codes: R50.9 - Fever, unspecified SNOMED: 468344480 Status: stable Assessment/Plan: Q4 Hour Neuro Obs PT/OT Evals MRI Brain w/o contrast Maintain normothermia Maintain normoglycemia Check TSH Check B12 Check LFTs, BUN , Cr Troponin Lipids Maintain SBP<140 IV Hydration Swallow Karmen Umanzor N.P. March 07, 2019 13:03
--- NOTE | 2019-03-07 13:40 | NUR ---
NURSE NOTES: Pt is refusing the spinal tap procedure. She stated that she has had it done in the past and does not want to have to experience the feeling again. I called Dr. garcia to let her know. Will await call back.
--- NOTE | 2019-03-07 13:46 | NUR ---
NURSE NOTES: Received call from Dr. Renee. Per doctor, She will come to speak with the patient regarding procedure
--- NOTE | 2019-03-07 15:30 | NUR ---
TRANSFER TO FLOOR: Patient transferred to , per Dr. Wilkerson's request. Report given to ASHOK Lebron. Belongings and medications by patients bedside. Family is at bedside. Pt stable at time of transfer.
--- NOTE | 2019-03-07 15:42 | NUR ---
*-* INSURANCE *-* ALL CLINICALS AND REVIEWS HAVE BEEN FAXED TO: [facility] NO PHOTO LAB SPECIALIST ASSIGNED AT THIS TIME PLEASE FAX THE REVIEW/CLINICAL [phone]...REVIEW/CLINICAL Addendum: 03/07/19 at 1554 by JYOTI KEARNEY CM CORRECT INFORMATION TO SEND CLINICALS GIVE TO ME BY NCM WHOM CALLED FROM [facility]. [facility] MENDEL:REJI P:[phone] F:[phone]
--- NOTE | 2019-03-07 16:03 | NUR ---
NURSE NOTES: Patient received int o room 421 bed 1,patient is alert,dominguez catheter and and draining clear yellow. Patient off floor for MRI
--- NOTE | 2019-03-07 19:30 | NUR ---
NURSE NOTES: Patient had a moderate amount of dark brown emesis,patient will be given medication fo vomiting as ordered. Ordered noted for dominguez catheter will be discontinued as ordered.Bed alarm on,call light within reach.
--- NOTE | 2019-03-07 19:35 | NUR ---
HAND-OFF: Report given to FABIEN ONOFRE RN.
--- NOTE | 2019-03-07 19:45 | History and Physical Report ---
DATE OF ADMISSION: 03/07/2019 DATE AND TIME SEEN: 03/07/2019 at 1 p.m. CONSULTANTS: 1. Jenny Wilkerson M.D. 2. Buck Soriano M.D. 3. CHIEF COMPLAINT: Fever, UTI, dysuria, and weakness. BRIEF HISTORY: The patient is an 83-year-old female, who lives at home with family, presents with fever for three days, some pain and lower extremity weakness as well. The patient came to [place], diagnosed with the above, admitted to [facility] for further care. Currently, calm in bed, slightly weak. No complaint. REVIEW OF SYSTEMS: No chest pain. No shortness of breath. No nausea, vomiting, or diarrhea. PAST MEDICAL HISTORY: Weakness. PAST SURGICAL HISTORY: None. ALLERGIES: Denies. MEDICATIONS: Include ceftriaxone, cefepime, vancomycin, heparin, albuterol, Tylenol, morphine, temazepam, and nitroglycerin. SOCIAL HISTORY: No smoking. No alcohol. No intravenous drug abuse. FAMILY HISTORY: Noncontributory. PHYSICAL EXAMINATION: GENERAL: Calm in bed, oriented x3, slightly weak. VITAL SIGNS: Temperature 97 degrees, pulse 85, respirations 20, and blood pressure 132/61. CARDIOVASCULAR: No murmur. LUNGS: Distant and clear. ABDOMEN: Bowel sounds positive. Nontender and nondistended. EXTREMITIES: Showed no cyanosis, clubbing or edema. NEUROLOGIC: The patient moves all extremities, slightly weak. LABORATORY DATA: Labs at this time show platelets 103, thrombocytopenia. ESR 37. BMP show BUN 26. Calcium 8.4. AST 95, alkaline phosphatase 130. Total CK 314. TSH 3.8. Urinalysis shows 1+ leukocyte esterase, 3+ protein. ASSESSMENT: 1. Fever. 2. Urinary tract infection. 3. Dysuria. 4. Bilateral lower extremity weakness, some slight pain. 5. Hypothyroid. 6. Weakness. PLAN: 1. PT and dietary evaluation. 2. Antibiotics per Infectious Disease. 3. Pain control. 4. Neuro and ID followup. 5. We will continue to follow the patient. 6. CBC and BMP in the morning. Jason Castanon D.O. DR: CARMEN JOB#: [id number] CC:
--- NOTE | 2019-03-07 19:50 | NUR ---
NURSE NOTES: Received a report from ASHOK Lebron. Pt is in stable condition. Able to make needs known in Vietnamese. IV site is patent and intact. Bed in lowest position. Bed alarm is on. Call light within reach. Will continue to monitor.
[2019-03-07] MEDS: Heparin 5000 units/ml inj SUBQ SCH (20:11)
[2019-03-07] MEDS ORDERED: Vancomycin 1.5 GM in D5W 275 ML IVPB SCH ×4 (21:00)
[2019-03-08] VITALS: BP 112/73
[2019-03-08] MEDS: cefTRIAXone 2 GM in D5W 55 ML IVPB SCH (02:42)
[2019-03-08] MEDS ORDERED: cefTRIAXone 2 GM in D5W 55 ML IVPB SCH (03:00)
[2019-03-08 04:00] VITALS: BP 127/79
--- NOTE | 2019-03-08 07:37 | NUR ---
HAND-OFF: Report given to Michelle Perez RN.
--- NOTE | 2019-03-08 07:41 | NUR ---
NURSE NOTES: Patient received resting in bed, eating breakfast. Alert and oriented, breathing unlabored on room air. Bedpan by the bedside. IV on right arm patent and intact. Bed locked in lowest position, bed alarm is on. Call light placed within reach. Will continue to monitor.
[2019-03-08 08:00] VITALS: BP 119/64
[2019-03-08 08:06] LABS: ALANINE AMINOTRANSFERASE 33 U/L (12-78); ALBUMIN 2.6 G/DL (3.4-5.0); ALBUMIN/GLOBULIN RATIO 0.7 (1.0-2.7); ALKALINE PHOSPHATASE 112 U/L (46-116); ANION GAP 9 mmol/L (5-15); ASPARTATE AMINO TRANSFERASE 113 U/L (15-37); BILIRUBIN,TOTAL 0.1 MG/DL (0.2-1.0); BLOOD UREA NITROGEN 17 mg/dL (7-18); CALCIUM 7.7 MG/DL (8.5-10.1); CARBON DIOXIDE 27 MMOL/L (21-32); CHLORIDE 104 MMOL/L (98-107); CREATININE 0.6 MG/DL (0.55-1.30); POTASSIUM 3.7 MMOL/L (3.5-5.1); SODIUM 139 MMOL/L (136-145)
[2019-03-08] MEDS: Heparin 5000 units/ml inj SUBQ SCH (08:24)
[2019-03-08 08:54] LABS: HEMOGLOBIN 12.2 G/DL (12.0-16.0); MEAN CORPUSCULAR VOLUME 88 FL (80-99); PLATELET COUNT 23 K/UL (150-450); RED BLOOD COUNT 4.07 M/UL (4.20-5.40); RED CELL DISTRIBUTION WIDTH 12.7 % (11.6-14.8); WHITE BLOOD COUNT 10.5 K/UL (4.8-10.8)
--- NOTE | 2019-03-08 10:39 | NUR ---
*-* INSURANCE -* UPDATED CLINICALS HAVE BEENF AXED TO: [facility] NCM:REJI P:[phone] F:[phone]
--- NOTE | 2019-03-08 10:59 | Diagnostic Imaging Report ---
Indication: Generalized weakness. Difficulty ambulating. Nausea and vomiting Technique: The head was imaged in a 1.5 Brandy magnet. Sequences obtained include sagittal and axial T1 FLAIR, axial T2 fast spin echo with fat saturation, axial T2 FLAIR, diffusion and ADC map. Comparison: None Findings: The T2 FLAIR sequence demonstrates some areas of sulcal hyperintensity particularly in the posterior aspects of both cerebral hemispheres but also within the right frontal region. The main concern is that there is an occult subarachnoid bleed. There is no mass effect or edema within the brain. The ventricles appear normal. Basal cisterns are normal. Flow voids are seen within the superior sagittal sinus, visualized part of the basilar artery and both ICA. There is no abnormal intra-axial or extra-axial fluid collection. As stated previously there is no diffusion restriction. Empty sella is noted. There is a T2 hyperintense signal within the right mastoid bone and some mucosal thickening within paranasal sinuses. IMPRESSION: Abnormal T2 hyperintense signal within cerebral sulci bilaterally predominating in the posterior part of the cerebrum. This is nonspecific, but the main concern would be an occult subarachnoid bleed. Differential diagnosis includes meningitis, leptomeningeal carcinomatosis or thickening, artifact related to elevated blood pool to CSF ratio. There is no evidence of diffusion restriction i.e. acute stroke to account for the finding. Further evaluation with gadolinium-enhanced MRI is recommended. Clinical correlation also needed. Noncontrast CT of the head is also recommended. Sinus disease. Right mastoiditis.
[2019-03-08 12:00] VITALS: BP 108/68
[2019-03-08] MEDS ORDERED: Vancomycin 1 GM in D5W 275 ML IVPB SCH (12:00)
--- NOTE | 2019-03-08 12:24 | Pulmonology Progress Note ---
Assessment/Plan Problems: (1) Febrile illness, acute (2) Recent foreign travel (3) Bilateral leg weakness Assessment/Plan all reviewed afebrile now f/u neuro recommendation check cultures, blood cultures are negative so far. pt/ot might need placement. Subjective ROS Limited/Unobtainable: No Constitutional: Reports: no symptoms HEENT: Repors: no symptoms Respiratory: Reports: no symptoms Allergies: Coded Allergies: No Known Allergies (Unverified , 03/07/19) Objective Last 24 Hour Vital Signs Date Time Temp Pulse Resp B/P (MAP) Pulse Ox O2 Delivery O2 Flow Rate FiO2 03/08/19 12:00 98.1 78 20 108/68 (81) 96 03/08/19 09:00 Room Air 03/08/19 08:00 97.8 85 20 119/64 (82) 96 03/08/19 04:00 98.0 74 18 127/79 (95) 99 03/08/19 00:00 98.1 62 16 112/73 (86) 98 03/07/19 21:00 Room Air 03/07/19 20:00 97.8 77 18 128/85 (99) 96 03/07/19 16:00 Room Air 03/07/19 12:46 97.0 75 20 132/61 (84) 96 03/07/19 12:32 Room Air Intake and Output 03/07/19 03/08/19 19:00 07:00 Intake Total 1100 ml 55 ml Output Total 300 ml 2 ml Balance 800 ml 53 ml Intake IV Total 1100 ml 55 ml Output Urine Total 100 ml 2 ml Stool Total 200 ml General Appearance: WD/WN HEENT: normocephalic, anicteric Respiratory/Chest: chest wall non-tender, lungs clear Cardiovascular: normal peripheral pulses, normal rate Abdomen: normal bowel sounds, soft, non tender Genitourinary: normal external genitalia Lymphatic: no neck adenopathy Musculoskeletal: no effusion Microbiology Date/Time Source Procedure Growth Status 03/07/19 01:42 Blood Blood Culture - Preliminary NO GROWTH AFTER 24 HOURS Resulted 03/07/19 01:30 Blood Blood Culture - Preliminary NO GROWTH AFTER 24 HOURS Resulted 03/07/19 22:05 Nasopharynx - Final Complete 03/07/19 22:05 Nasopharynx - Final Complete Laboratory Tests 03/07/19 17:10: CSF Myelin Basic Protein [Pending], CSF Oligoclonal Bands [Pending], CSF VDRL [ Pending], CSF Coccidioides Antibody [Pending], Rapid Plasma Reagin Non reactive , Cryptococcus Antigen [Pending], HIV-1 RNA (PCR) log10 Value [Pending], HIV-1 RNA Ultraquantitative (PCR) [Pending], HIV (1&2) Antibody Rapid Negative 03/08/19 07:06: Sodium Level 139, Potassium Level 3.7, Chloride Level 104, Carbon Dioxide Level 27, Anion Gap 9, Blood Urea Nitrogen 17, Creatinine 0.6, Estimat Glomerular Filtration Rate , Glucose Level 98, Calcium Level 7.7L, Total Bilirubin 0.1L, Aspartate Amino Transf (AST/SGOT) 113H, Alanine Aminotransferase (ALT/SGPT) 33, Alkaline Phosphatase 112, Total Protein 6.2L, Albumin 2.6L, Globulin 3.6, Albumin/Globulin Ratio 0.7L, Coccidioides Antibody (Comp Fix) [Pending], West Nile Virus IgG Antibody [Pending], West Nile Virus IgM Antibody [Pending] 03/08/19 08:40: White Blood Count 10.5#, Red Blood Count 4.07L, Hemoglobin 12.2, Hematocrit 36.0L, Mean Corpuscular Volume 88, Mean Corpuscular Hemoglobin 29.9, Mean Corpuscular Hemoglobin Concent 33.8, Red Cell Distribution Width 12.7, Platelet Count 23#L, Mean Platelet Volume 8.0, Neutrophils (%) (Auto) , Lymphocytes (%) ( Auto) , Monocytes (%) (Auto) , Eosinophils (%) (Auto) , Basophils (%) (Auto) , Differential Total Cells Counted 100, Neutrophils % (Manual) 59, Lymphocytes % ( Manual) 19L, Monocytes % (Manual) 7, Eosinophils % (Manual) 0, Basophils % ( Manual) 0, Myelocytes % 1H, Band Neutrophils 14H, Platelet Estimate DecreasedL, Platelet Morphology Normal, Red Blood Cell Morphology Normal Current Medications Medications (Trade) Dose Ordered Sig/Lisette Route PRN Reason Start Time Stop Time Status Last Admin Dose Admin Acetaminophen (Tylenol) 650 mg Q4H PRN ORAL fever (temp>100.5F) 03/07/19 15:15 04/06/19 15:14 Albuterol/ Ipratropium (Albuterol/ Ipratropium) 3 ml Q4H PRN HHN Shortness of Breath 03/07/19 15:15 03/12/19 15:14 Ceftriaxone Sodium 2 gm/ Dextrose 55 ml @ 110 mls/hr Q24H IVPB 03/08/19 03:00 03/15/19 02:59 03/08/19 02:42 Gadobutrol (Gadavist) 7.5 mmol NOW PRN IV Radiology Procedure 03/07/19 15:13 03/09/19 15:12 Gadobutrol (Gadavist) 7.5 mmol NOW PRN IV Radiology Procedure 03/07/19 15:13 03/09/19 15:12 Heparin Sodium (Porcine) (Heparin 5000 units/ml) 5,000 units EVERY 12 HOURS SUBQ 03/07/19 21:00 04/06/19 08:59 Iopamidol (Isovue-300 100ml) 100 ml NOW PRN INJ Radiology Procedure 03/07/19 15:13 03/09/19 15:12 Morphine Sulfate (Morphine Sulfate) 2 mg Q4H PRN IVP Moderate Pain (Pain Scale 4-6) 03/07/19 15:15 03/14/19 15:14 Nitroglycerin (Ntg) 0.4 mg Q5M PRN SL Prn Chest Pain 03/07/19 15:15 04/06/19 15:14 Ondansetron HCl (Zofran) 4 mg Q6H PRN IVP Nausea & Vomiting 03/07/19 15:15 04/06/19 15:14 03/07/19 20:14 Polyethylene Glycol (Miralax) 17 gm DAILYPRN PRN ORAL Constipation 03/07/19 15:15 04/06/19 15:14 Temazepam (Restoril) 15 mg HSPRN PRN ORAL Insomnia 03/07/19 20:00 03/14/19 19:59 Vancomycin HCl (Vanco rx to dose) 1 ea DAILY PRN MISC PER RX 03/07/19 15:15 04/06/19 15:14 Vancomycin HCl 1 gm/Dextrose 275 ml @ 183.3 mls/ hr Q24H IVPB 03/08/19 12:00 03/13/19 11:59 Jenny Wilkerson MD March 08, 2019 12:24
--- NOTE | 2019-03-08 12:44 | Infectious Diseases Prog Note ---
Assessment/Plan Assessment/Plan Abx: Ceftriaxone x1 03/07 IV Vancomycin 03/07- Cefepime 03/07- Assessment: Febrile illness (not currently febrile)- now severe thrombocytopenia - ?Dengue LE weakness- r/o GBS, r/o ZIka, dengue (given recent travel to [facility]) -MRI brain wo: Abnormal T2 hyperintense signal within cerebral sulci bilaterally predominating in the posterior part of the cerebrum. This is nonspecific, but the main concern would be an occult subarachnoid bleed. Differential diagnosis includes meningitis, leptomeningeal carcinomatosis or thickening, artifact related to elevated blood pool to CSF ratio. There is no evidence of diffusion restriction i.e. acute stroke to account for the finding. Further evaluation with gadolinium-enhanced MRI is recommended. Clinical correlation also needed. Noncontrast CT of the head is also recommended.Sinus disease. Right mastoiditis. -MRI t/ L spine w/wo: No evidence of compression of the spinal cord or cauda equina. No intrinsic cord abnormality, edema or other neuropathy identified. Moderate degenerative changes of the mid to lower lumbar spine characterized by degenerative disc disease and facet arthropathy. Disease is most severe at L4-5 which shows evidence of central spinal stenosis and narrowing of the lateral recess and moderate right foraminal stenosis. L3-4 Central stenosis also demonstrated. Other incidental findings as above. -CT: c/abd/p w/: No acute findings identified within the chest abdomen or pelvis. Large hiatal hernia. Cardiomegaly and arterial vascular disease. Moderate fatty liver. Prominence of the urinary bladder wall. Correlate for cystitis. Villalobos catheter in good position.Degenerative changes of the spine. Probable right renal cyst -CXR: No acute disease -Bcx NTD -influenza sc, HIV sc, RPR neg Severe thrombocytopenia Elevated AST Mild elevation CPK Chronic LE weakness- prior workup many years ago but unknown results- able to ambulate w/ walker- but now weakness worse, moving fingers but not able to raise legs Plan: -Will d/c empiric IV Vancomycin #2 given thrombocytopenia and low suspicion for acute bacterial meningitis -Continue Ceftriaxone #2 for now pending LP -will d/c if CSF not consistent with bacterial meningitis which i have low suspicion for -03/07 SP Cefepime #1 -Lumbar puncture- patient currently refusing LP- I explained why it is needed and risks and benefits. Daughter will talk with patient in more detail to see if patient will be agreeable with procedure. -CSF fluid analysis, culture, VDRL, Cocci, CrAg, Dengue, Zika, [place] PCR , oligoclonal bands, MBP, WNV ab -f/u HIV VL, Cocci ab, CrAg, Zika/Dengue/[place]ung[place] serology, WNV ab serum -f/u cx -Monitor CBC/CMP, temperatures -Neuro eval: consider repeating MRI brain w contrast Thank you for this consultation. Will continue to follow along with you. Discussed with RN Subjective Allergies: Coded Allergies: No Known Allergies (Unverified , 03/07/19) Objective Vital Signs Last 24 Hour Vital Signs Date Time Temp Pulse Resp B/P (MAP) Pulse Ox O2 Delivery O2 Flow Rate FiO2 03/08/19 12:00 98.1 78 20 108/68 (81) 96 03/08/19 09:00 Room Air 03/08/19 08:00 97.8 85 20 119/64 (82) 96 03/08/19 04:00 98.0 74 18 127/79 (95) 99 03/08/19 00:00 98.1 62 16 112/73 (86) 98 03/07/19 21:00 Room Air 03/07/19 20:00 97.8 77 18 128/85 (99) 96 03/07/19 16:00 Room Air 03/07/19 12:46 97.0 75 20 132/61 (84) 96 03/07/19 12:32 Room Air Height (Feet): 5 Height (Inches): 1.00 Weight (Pounds): 150 Objective General Appearance: WD/WN Lines, tubes and drains: peripheral HEENT: normocephalic, anicteric Neck: non-tender, supple, limited range of motion Respiratory/Chest: lungs clear Cardiovascular/Chest: normal rate Abdomen: normal bowel sounds Neuro: unable to elicit knee and ankle reflex, patient did have R>L leg spasticity, upward babinski on L foot, preserved sensation, no clonus Microbiology Date/Time Source Procedure Growth Status 03/07/19 01:42 Blood Blood Culture - Preliminary NO GROWTH AFTER 24 HOURS Resulted 03/07/19 01:30 Blood Blood Culture - Preliminary NO GROWTH AFTER 24 HOURS Resulted 03/07/19 22:05 Nasopharynx - Final Complete 03/07/19 22:05 Nasopharynx - Final Complete Laboratory Tests Test 03/07/19 17:10 03/08/19 07:06 03/08/19 08:40 CSF Myelin Basic Protein Pending CSF Oligoclonal Bands Pending CSF VDRL Pending CSF Coccidioides Antibody Pending Rapid Plasma Reagin Non reactive (Non Reactive) Cryptococcus Antigen Pending HIV-1 RNA (PCR) log10 Value Pending HIV-1 RNA Ultraquantitative (PCR) Pending HIV (1&2) Antibody Rapid Negative (NEGATIVE) Sodium Level 139 MMOL/L (136-145) Potassium Level 3.7 MMOL/L (3.5-5.1) Chloride Level 104 MMOL/L (98-107) Carbon Dioxide Level 27 MMOL/L (21-32) Anion Gap 9 mmol/L (5-15) Blood Urea Nitrogen 17 mg/dL (7-18) Creatinine 0.6 MG/DL (0.55-1.30) Estimat Glomerular Filtration Rate mL/min (>60) Glucose Level 98 MG/DL (74-106) Calcium Level 7.7 MG/DL (8.5-10.1) L Total Bilirubin 0.1 MG/DL (0.2-1.0) L Aspartate Amino Transf (AST/SGOT) 113 U/L (15-37) H Alanine Aminotransferase (ALT/SGPT) 33 U/L (12-78) Alkaline Phosphatase 112 U/L (46-116) Total Protein 6.2 G/DL (6.4-8.2) L Albumin 2.6 G/DL (3.4-5.0) L Globulin 3.6 g/dL Albumin/Globulin Ratio 0.7 (1.0-2.7) L Coccidioides Antibody (Comp Fix) Pending West Nile Virus IgG Antibody Pending West Nile Virus IgM Antibody Pending White Blood Count 10.5 K/UL (4.8-10.8) # Red Blood Count 4.07 M/UL (4.20-5.40) L Hemoglobin 12.2 G/DL (12.0-16.0) Hematocrit 36.0 % (37.0-47.0) L Mean Corpuscular Volume 88 FL (80-99) Mean Corpuscular Hemoglobin 29.9 PG (27.0-31.0) Mean Corpuscular Hemoglobin Concent 33.8 G/DL (32.0-36.0) Red Cell Distribution Width 12.7 % (11.6-14.8) Platelet Count 23 K/UL (150-450) #L Mean Platelet Volume 8.0 FL (6.5-10.1) Neutrophils (%) (Auto) % (45.0-75.0) Lymphocytes (%) (Auto) % (20.0-45.0) Monocytes (%) (Auto) % (1.0-10.0) Eosinophils (%) (Auto) % (0.0-3.0) Basophils (%) (Auto) % (0.0-2.0) Differential Total Cells Counted 100 Neutrophils % (Manual) 59 % (45-75) Lymphocytes % (Manual) 19 % (20-45) L Monocytes % (Manual) 7 % (1-10) Eosinophils % (Manual) 0 % (0-3) Basophils % (Manual) 0 % (0-2) Myelocytes % 1 % (0-0) H Band Neutrophils 14 % (0-8) H Platelet Estimate Decreased L Platelet Morphology Normal Red Blood Cell Morphology Normal Current Medications Medications (Trade) Dose Ordered Sig/Lisette Route PRN Reason Start Time Stop Time Status Last Admin Dose Admin Acetaminophen (Tylenol) 650 mg Q4H PRN ORAL fever (temp>100.5F) 03/07/19 15:15 04/06/19 15:14 Albuterol/ Ipratropium (Albuterol/ Ipratropium) 3 ml Q4H PRN HHN Shortness of Breath 03/07/19 15:15 03/12/19 15:14 Ceftriaxone Sodium 2 gm/ Dextrose 55 ml @ 110 mls/hr Q24H IVPB 03/08/19 03:00 03/15/19 02:59 03/08/19 02:42 Gadobutrol (Gadavist) 7.5 mmol NOW PRN IV Radiology Procedure 03/07/19 15:13 03/09/19 15:12 Gadobutrol (Gadavist) 7.5 mmol NOW PRN IV Radiology Procedure 03/07/19 15:13 03/09/19 15:12 Heparin Sodium (Porcine) (Heparin 5000 units/ml) 5,000 units EVERY 12 HOURS SUBQ 03/07/19 21:00 04/06/19 08:59 Iopamidol (Isovue-300 100ml) 100 ml NOW PRN INJ Radiology Procedure 03/07/19 15:13 03/09/19 15:12 Morphine Sulfate (Morphine Sulfate) 2 mg Q4H PRN IVP Moderate Pain (Pain Scale 4-6) 03/07/19 15:15 03/14/19 15:14 Nitroglycerin (Ntg) 0.4 mg Q5M PRN SL Prn Chest Pain 03/07/19 15:15 04/06/19 15:14 Ondansetron HCl (Zofran) 4 mg Q6H PRN IVP Nausea & Vomiting 03/07/19 15:15 04/06/19 15:14 03/07/19 20:14 Polyethylene Glycol (Miralax) 17 gm DAILYPRN PRN ORAL Constipation 03/07/19 15:15 04/06/19 15:14 Temazepam (Restoril) 15 mg HSPRN PRN ORAL Insomnia 03/07/19 20:00 03/14/19 19:59 Vancomycin HCl (Vanco rx to dose) 1 ea DAILY PRN MISC PER RX 03/07/19 15:15 04/06/19 15:14 Vancomycin HCl 1 gm/Dextrose 275 ml @ 183.3 mls/ hr Q24H IVPB 03/08/19 12:00 03/13/19 11:59 Olga Lidia Renee M.D. March 08, 2019 12:44
--- NOTE | 2019-03-08 12:51 | Consultation ---
History of Present Illness General Chief Complaint: Fever Present Illness Allergies: Coded Allergies: No Known Allergies (Unverified , 03/07/19) Medication History Miscellaneous Medications ["glaucoma eye drops"], (Reported) Patient History Healthcare decision maker Resuscitation status Full Code Advanced Directive on File Physical Exam Last 24 Hour Vital Signs Date Time Temp Pulse Resp B/P (MAP) Pulse Ox O2 Delivery O2 Flow Rate FiO2 03/08/19 12:00 98.1 78 20 108/68 (81) 96 03/08/19 09:00 Room Air 03/08/19 08:00 97.8 85 20 119/64 (82) 96 03/08/19 04:00 98.0 74 18 127/79 (95) 99 03/08/19 00:00 98.1 62 16 112/73 (86) 98 03/07/19 21:00 Room Air 03/07/19 20:00 97.8 77 18 128/85 (99) 96 03/07/19 16:00 Room Air 03/07/19 12:46 97.0 75 20 132/61 (84) 96 Intake and Output 03/07/19 03/08/19 18:59 06:59 Intake Total 1100 ml 55 ml Output Total 300 ml 2 ml Balance 800 ml 53 ml Intake IV Total 1100 ml 55 ml Output Urine Total 100 ml 2 ml Stool Total 200 ml Laboratory Tests Test 03/07/19 17:10 03/08/19 07:06 03/08/19 08:40 CSF Myelin Basic Protein Pending CSF Oligoclonal Bands Pending CSF VDRL Pending CSF Coccidioides Antibody Pending Rapid Plasma Reagin Non reactive (Non Reactive) Cryptococcus Antigen Pending HIV-1 RNA (PCR) log10 Value Pending HIV-1 RNA Ultraquantitative (PCR) Pending HIV (1&2) Antibody Rapid Negative (NEGATIVE) Sodium Level 139 MMOL/L (136-145) Potassium Level 3.7 MMOL/L (3.5-5.1) Chloride Level 104 MMOL/L (98-107) Carbon Dioxide Level 27 MMOL/L (21-32) Anion Gap 9 mmol/L (5-15) Blood Urea Nitrogen 17 mg/dL (7-18) Creatinine 0.6 MG/DL (0.55-1.30) Estimat Glomerular Filtration Rate mL/min (>60) Glucose Level 98 MG/DL (74-106) Calcium Level 7.7 MG/DL (8.5-10.1) L Total Bilirubin 0.1 MG/DL (0.2-1.0) L Aspartate Amino Transf (AST/SGOT) 113 U/L (15-37) H Alanine Aminotransferase (ALT/SGPT) 33 U/L (12-78) Alkaline Phosphatase 112 U/L (46-116) Total Protein 6.2 G/DL (6.4-8.2) L Albumin 2.6 G/DL (3.4-5.0) L Globulin 3.6 g/dL Albumin/Globulin Ratio 0.7 (1.0-2.7) L Coccidioides Antibody (Comp Fix) Pending West Nile Virus IgG Antibody Pending West Nile Virus IgM Antibody Pending White Blood Count 10.5 K/UL (4.8-10.8) # Red Blood Count 4.07 M/UL (4.20-5.40) L Hemoglobin 12.2 G/DL (12.0-16.0) Hematocrit 36.0 % (37.0-47.0) L Mean Corpuscular Volume 88 FL (80-99) Mean Corpuscular Hemoglobin 29.9 PG (27.0-31.0) Mean Corpuscular Hemoglobin Concent 33.8 G/DL (32.0-36.0) Red Cell Distribution Width 12.7 % (11.6-14.8) Platelet Count 23 K/UL (150-450) #L Mean Platelet Volume 8.0 FL (6.5-10.1) Neutrophils (%) (Auto) % (45.0-75.0) Lymphocytes (%) (Auto) % (20.0-45.0) Monocytes (%) (Auto) % (1.0-10.0) Eosinophils (%) (Auto) % (0.0-3.0) Basophils (%) (Auto) % (0.0-2.0) Differential Total Cells Counted 100 Neutrophils % (Manual) 59 % (45-75) Lymphocytes % (Manual) 19 % (20-45) L Monocytes % (Manual) 7 % (1-10) Eosinophils % (Manual) 0 % (0-3) Basophils % (Manual) 0 % (0-2) Myelocytes % 1 % (0-0) H Band Neutrophils 14 % (0-8) H Platelet Estimate Decreased L Platelet Morphology Normal Red Blood Cell Morphology Normal Microbiology Date/Time Source Procedure Growth Status 03/07/19 22:05 Nasopharynx - Final Complete 03/07/19 22:05 Nasopharynx - Final Complete Height (Feet): 5 Height (Inches): 1.00 Weight (Pounds): 150 Medications Current Medications Medications (Trade) Dose Ordered Sig/Lisette Route PRN Reason Start Time Stop Time Status Last Admin Dose Admin Acetaminophen (Tylenol) 650 mg Q4H PRN ORAL fever (temp>100.5F) 03/07/19 15:15 04/06/19 15:14 Albuterol/ Ipratropium (Albuterol/ Ipratropium) 3 ml Q4H PRN HHN Shortness of Breath 03/07/19 15:15 03/12/19 15:14 Ceftriaxone Sodium 2 gm/ Dextrose 55 ml @ 110 mls/hr Q24H IVPB 03/08/19 03:00 03/15/19 02:59 03/08/19 02:42 Gadobutrol (Gadavist) 7.5 mmol NOW PRN IV Radiology Procedure 03/07/19 15:13 03/09/19 15:12 Gadobutrol (Gadavist) 7.5 mmol NOW PRN IV Radiology Procedure 03/07/19 15:13 03/09/19 15:12 Heparin Sodium (Porcine) (Heparin 5000 units/ml) 5,000 units EVERY 12 HOURS SUBQ 03/07/19 21:00 04/06/19 08:59 Iopamidol (Isovue-300 100ml) 100 ml NOW PRN INJ Radiology Procedure 03/07/19 15:13 03/09/19 15:12 Morphine Sulfate (Morphine Sulfate) 2 mg Q4H PRN IVP Moderate Pain (Pain Scale 4-6) 03/07/19 15:15 03/14/19 15:14 Nitroglycerin (Ntg) 0.4 mg Q5M PRN SL Prn Chest Pain 03/07/19 15:15 04/06/19 15:14 Ondansetron HCl (Zofran) 4 mg Q6H PRN IVP Nausea & Vomiting 03/07/19 15:15 04/06/19 15:14 03/07/19 20:14 Polyethylene Glycol (Miralax) 17 gm DAILYPRN PRN ORAL Constipation 03/07/19 15:15 04/06/19 15:14 Temazepam (Restoril) 15 mg HSPRN PRN ORAL Insomnia 03/07/19 20:00 03/14/19 19:59 Assessment/Plan Assessment/Plan: Hematology Consultation Chief Complaint: Fever DOS: 03/08/19 REQ MD: Micheal Castanon RFC: Thrombocytopenia, acute ID 83-year-old female who presented after increased fever. Patient reports having increased temperature since two days ago. Patient had recently returned from a trip to [facility]. Patient had been present in [facility] approximately 3 weeks. She reports having increased lower extremity weakness to both legs since monday. Patient had been having increased dysuria for the past 3 months. She reports having one episode of vomiting. Patient reports having a rash to both legs which she describes as insect bites. Patient had previously had episodes of low back pain. She denies any recent trauma. Patient had normally been able to ambulate with a walker but would have been having increased difficulty with ambulation. Plts count has decreased from 103k-->23k, and heme was consulted. Allergies: No Known Allergies (Unverified , 03/07/19) Past Medical History: see triage record Past Surgical History: other - catarract surger Reviewed Nursing Documentation: PMH: Agreed; PSxH: Agreed Review of Systems: negative except mentioned in HPI PE Vital Signs Date Time Temp Pulse Resp B/P (MAP) Pulse Ox O2 Delivery O2 Flow Rate FiO2 03/07/19 01:29 98.4 86 16 145/86 (105) 95 Room Air Gen: alert, GCS 15, non-toxic, obese, Chronically Ill Head: normocephalic Eyes: bilateral eye PERRL ENT: normal ENT inspection, normal voice Neck: limited range of motion Respiratory: lungs clear, normal breath sounds Cardiovascular: normal inspection, regular rate, rhythm Gastrointestinal: normal inspection, normal bowel sounds,nt, nd Neurologic: normal inspection, alert, oriented x3 Current Medications Medications (Trade) Dose Ordered Sig/Lisette Route PRN Reason Start Time Stop Time Status Last Admin Dose Admin Acetaminophen (Tylenol) 650 mg Q4H PRN ORAL fever (temp>100.5F) 03/07/19 15:15 04/06/19 15:14 Albuterol/ Ipratropium (Albuterol/ Ipratropium) 3 ml Q4H PRN HHN Shortness of Breath 03/07/19 15:15 03/12/19 15:14 Ceftriaxone Sodium 2 gm/ Dextrose 55 ml @ 110 mls/hr Q24H IVPB 03/08/19 03:00 03/15/19 02:59 03/08/19 02:42 Gadobutrol (Gadavist) 7.5 mmol NOW PRN IV Radiology Procedure 03/07/19 15:13 03/09/19 15:12 Gadobutrol (Gadavist) 7.5 mmol NOW PRN IV Radiology Procedure 03/07/19 15:13 03/09/19 15:12 Heparin Sodium (Porcine) (Heparin 5000 units/ml) 5,000 units EVERY 12 HOURS SUBQ 03/07/19 21:00 04/06/19 08:59 Iopamidol (Isovue-300 100ml) 100 ml NOW PRN INJ Radiology Procedure 03/07/19 15:13 03/09/19 15:12 Morphine Sulfate (Morphine Sulfate) 2 mg Q4H PRN IVP Moderate Pain (Pain Scale 4-6) 03/07/19 15:15 03/14/19 15:14 Nitroglycerin (Ntg) 0.4 mg Q5M PRN SL Prn Chest Pain 03/07/19 15:15 04/06/19 15:14 Ondansetron HCl (Zofran) 4 mg Q6H PRN IVP Nausea & Vomiting 03/07/19 15:15 04/06/19 15:14 03/07/19 20:14 Polyethylene Glycol (Miralax) 17 gm DAILYPRN PRN ORAL Constipation 03/07/19 15:15 04/06/19 15:14 Temazepam (Restoril) 15 mg HSPRN PRN ORAL Insomnia 03/07/19 20:00 03/14/19 19:59 Laboratory Tests Test 03/07/19 17:10 03/08/19 07:06 03/08/19 08:40 CSF Myelin Basic Protein Pending CSF Oligoclonal Bands Pending CSF VDRL Pending CSF Coccidioides Antibody Pending Rapid Plasma Reagin Non reactive (Non Reactive) Cryptococcus Antigen Pending HIV-1 RNA (PCR) log10 Value Pending HIV-1 RNA Ultraquantitative (PCR) Pending HIV (1&2) Antibody Rapid Negative (NEGATIVE) Sodium Level 139 MMOL/L (136-145) Potassium Level 3.7 MMOL/L (3.5-5.1) Chloride Level 104 MMOL/L (98-107) Carbon Dioxide Level 27 MMOL/L (21-32) Anion Gap 9 mmol/L (5-15) Blood Urea Nitrogen 17 mg/dL (7-18) Creatinine 0.6 MG/DL (0.55-1.30) Estimat Glomerular Filtration Rate mL/min (>60) Glucose Level 98 MG/DL (74-106) Calcium Level 7.7 MG/DL (8.5-10.1) L Total Bilirubin 0.1 MG/DL (0.2-1.0) L Aspartate Amino Transf (AST/SGOT) 113 U/L (15-37) H Alanine Aminotransferase (ALT/SGPT) 33 U/L (12-78) Alkaline Phosphatase 112 U/L (46-116) Total Protein 6.2 G/DL (6.4-8.2) L Albumin 2.6 G/DL (3.4-5.0) L Globulin 3.6 g/dL Albumin/Globulin Ratio 0.7 (1.0-2.7) L Coccidioides Antibody (Comp Fix) Pending West Nile Virus IgG Antibody Pending West Nile Virus IgM Antibody Pending White Blood Count 10.5 K/UL (4.8-10.8) # Red Blood Count 4.07 M/UL (4.20-5.40) L Hemoglobin 12.2 G/DL (12.0-16.0) Hematocrit 36.0 % (37.0-47.0) L Mean Corpuscular Volume 88 FL (80-99) Mean Corpuscular Hemoglobin 29.9 PG (27.0-31.0) Mean Corpuscular Hemoglobin Concent 33.8 G/DL (32.0-36.0) Red Cell Distribution Width 12.7 % (11.6-14.8) Platelet Count 23 K/UL (150-450) #L Mean Platelet Volume 8.0 FL (6.5-10.1) Neutrophils (%) (Auto) % (45.0-75.0) Lymphocytes (%) (Auto) % (20.0-45.0) Monocytes (%) (Auto) % (1.0-10.0) Eosinophils (%) (Auto) % (0.0-3.0) Basophils (%) (Auto) % (0.0-2.0) Differential Total Cells Counted 100 Neutrophils % (Manual) 59 % (45-75) Lymphocytes % (Manual) 19 % (20-45) L Monocytes % (Manual) 7 % (1-10) Eosinophils % (Manual) 0 % (0-3) Basophils % (Manual) 0 % (0-2) Myelocytes % 1 % (0-0) H Band Neutrophils 14 % (0-8) H Platelet Estimate Decreased L Platelet Morphology Normal Red Blood Cell Morphology Normal Assessment and Recs: # Thrombocytopenia - potential causes multifactorial, evaluate liver and viral etiologies to begin, also could be related to underlying medications patient has received such as heparin (HAS BEEN DISCONTINUED), also at this time on abx, cefe and vanc, monitor abx closely --> Hep panel and HIV ordered --> CT of the a/p reviewed,and no cirrhosis/hsm ordered --> Peripheral smear has been reviewed, no blasts noted, 1% myelocytes --> abx and other meds have been reviewed --> Transfuse if Plt < 20k and fever, or if Plt < 10k without fever --> heparin has been discontinued sq --> HIT Ab has been ordered # Anemia of chronic disease (or of iron deficiency) due to underlying chronic medical issues, multifactorial --> CONSIDER if hgb lower w/u --> No evidence of hemolysis is noted, peripheral smear has been reviewed. --> Hgb goal >7. Transfuse prn. --> Epogen or iron at this time is not particularly indicated # Urinary tract infection --> blood and urine culture pending --> on abx as per id, vanc/cefepime # Dehydration --> IVF has been started # Lower extremity weakness Differential diagnosis include was not limited to Guillain-Pike v uti v generalized weakness --> LP considering as per neuro The timing of this note does not necessarily reflect the time of the patient was seen. Greatly appreciate consultation! Nicholas Coffey MD March 08, 2019 12:51
[2019-03-08 14:11] LABS: INR 1.1 (0.9-1.1)
--- NOTE | 2019-03-08 14:34 | General Progress Note ---
Assessment/Plan Problem List: (1) Thrombocytopenia ICD Codes: D69.6 - Thrombocytopenia, unspecified SNOMED: 888866800 (2) Urinary tract infection ICD Codes: N39.0 - Urinary tract infection, site not specified SNOMED: 83513851 (3) Bilateral leg weakness ICD Codes: R29.898 - Other symptoms and signs involving the musculoskeletal system SNOMED: 7641300 (4) Febrile illness, acute ICD Codes: R50.9 - Fever, unspecified SNOMED: 023326598 (5) Dehydration ICD Codes: E86.0 - Dehydration SNOMED: 07822610 Status: unchanged Assessment/Plan: pt diet abx ivf heme eval cbc bmp am Subjective Constitutional: Reports: weakness Allergies: Coded Allergies: No Known Allergies (Unverified , 03/07/19) All Systems: reviewed and negative except above Subjective sleepy calm Objective Last 24 Hour Vital Signs Date Time Temp Pulse Resp B/P (MAP) Pulse Ox O2 Delivery O2 Flow Rate FiO2 03/08/19 12:00 98.1 78 20 108/68 (81) 96 03/08/19 09:00 Room Air 03/08/19 08:00 97.8 85 20 119/64 (82) 96 03/08/19 04:00 98.0 74 18 127/79 (95) 99 03/08/19 00:00 98.1 62 16 112/73 (86) 98 03/07/19 21:00 Room Air 03/07/19 20:00 97.8 77 18 128/85 (99) 96 03/07/19 16:00 Room Air Intake and Output 03/07/19 03/08/19 19:00 07:00 Intake Total 1100 ml 55 ml Output Total 300 ml 2 ml Balance 800 ml 53 ml Intake IV Total 1100 ml 55 ml Output Urine Total 100 ml 2 ml Stool Total 200 ml Laboratory Tests 03/07/19 17:10: CSF Myelin Basic Protein [Pending], CSF Oligoclonal Bands [Pending], CSF VDRL [ Pending], CSF Coccidioides Antibody [Pending], Rapid Plasma Reagin Non reactive , Cryptococcus Antigen [Pending], HIV-1 RNA (PCR) log10 Value [Pending], HIV-1 RNA Ultraquantitative (PCR) [Pending], HIV (1&2) Antibody Rapid Negative 03/08/19 07:06: Sodium Level 139, Potassium Level 3.7, Chloride Level 104, Carbon Dioxide Level 27, Anion Gap 9, Blood Urea Nitrogen 17, Creatinine 0.6, Estimat Glomerular Filtration Rate , Glucose Level 98, Calcium Level 7.7L, Total Bilirubin 0.1L, Aspartate Amino Transf (AST/SGOT) 113H, Alanine Aminotransferase (ALT/SGPT) 33, Alkaline Phosphatase 112, Total Protein 6.2L, Albumin 2.6L, Globulin 3.6, Albumin/Globulin Ratio 0.7L, Coccidioides Antibody (Comp Fix) [Pending], West Nile Virus IgG Antibody [Pending], West Nile Virus IgM Antibody [Pending] 03/08/19 08:40: White Blood Count 10.5#, Red Blood Count 4.07L, Hemoglobin 12.2, Hematocrit 36.0L, Mean Corpuscular Volume 88, Mean Corpuscular Hemoglobin 29.9, Mean Corpuscular Hemoglobin Concent 33.8, Red Cell Distribution Width 12.7, Platelet Count 23#L, Mean Platelet Volume 8.0, Neutrophils (%) (Auto) , Lymphocytes (%) ( Auto) , Monocytes (%) (Auto) , Eosinophils (%) (Auto) , Basophils (%) (Auto) , Differential Total Cells Counted 100, Neutrophils % (Manual) 59, Lymphocytes % ( Manual) 19L, Monocytes % (Manual) 7, Eosinophils % (Manual) 0, Basophils % ( Manual) 0, Myelocytes % 1H, Band Neutrophils 14H, Platelet Estimate DecreasedL, Platelet Morphology Normal, Red Blood Cell Morphology Normal 03/08/19 13:40: Albumin/Globulin Ratio [Pending], Reticulocyte Count 0.4L, Prothrombin Time 11.1 , Prothromb Time International Ratio 1.1, Fibrinogen [Pending], Lactate Dehydrogenase 859H, Total Protein (PEP) [Pending], Albumin (PEP) [Pending], Globulin (PEP) [Pending], Rqagj-8-Yqrwlwpnz [Pending], Sfgch-0-Pmwnkudvi [ Pending], Beta Globulins [Pending], Beta Gamma Globulin [Pending], PEP Abnormal Protein Bands [Pending], Protein Electrophoresis Interpret [Pending], Heparin- PF4 Antibody Screen [Pending], Hepatitis A IgM Antibody [Pending], Hepatitis B Surface Antigen [Pending], Hepatitis B Core IgM Antibody [Pending], Hepatitis C Antibody [Pending] Height (Feet): 5 Height (Inches): 1.00 Weight (Pounds): 150 General Appearance: lethargic EENT: normal ENT inspection Neck: normal alignment Cardiovascular: normal peripheral pulses, normal rate, regular rhythm Respiratory/Chest: chest wall non-tender, lungs clear, normal breath sounds Abdomen: normal bowel sounds, non tender, soft Extremities: normal inspection Edema: no edema noted Arm (L), no edema noted Arm (R), no edema noted Leg (L), no edema noted Leg (R), no edema noted Pedal (L), no edema noted Pedal (R), no edema noted Generalized Neurologic: motor weakness Skin: normal pigmentation, warm/dry Jason Castanon March 08, 2019 14:34
--- NOTE | 2019-03-08 15:28 | Cardiology Report ---
APPROVED REPORT EKG Measurement Heart [id number] Normal sinus rhythm Normal ECG
[2019-03-08 16:00] VITALS: BP 118/70
--- NOTE | 2019-03-08 17:24 | NUR ---
[employer] SI:BILATERAL LEG EXTREMITY WEAKNESS . UTI . DEHYDRATION VS: BP 108/68, P 81, T 98.0, RR 16, SpO2 96 RBC 4.07, HCT 36.0, TOTAL BILIRUBIN 0.1, AST 113 IS:ZOFRAN 4mG IVP VANCOMYCIN 275ml IVPB CEFTRIAXONE 55ml IVPB MED/SURG STATUS
--- NOTE | 2019-03-08 17:33 | NUR ---
P.T Note: late entry 1120 P.T evaluation completed and treatment initiated. Please refer to P.t evaluation for current functional status. Pt is alert, O x 4 , pleasant and cooperative. Pt reports c/o generalized fatigue and significant weakness of BLE which limits overall functional mobility especially standing and ambulation ability. Pt able to perform bed mobility with MOD A X 1, able to perform sit to/from stand with MAX A X 1 for 10 secs using the FWW however to weak to initiate steps. Skilled P.T service is warranted to improve her strength , balance and endurance to increase her mobility independence and safety. Recommend SNF for further rehab VS home P.T. at CT.
--- NOTE | 2019-03-08 19:32 | NUR ---
HAND-OFF: Report given to Lula PULIDO.
--- NOTE | 2019-03-08 19:57 | NUR ---
NURSE NOTES: Pt received in bed at lowest position, call light within reach, able to make needs known, family at bedside, no c/o pain or signs of distress at the moment, will continue to monitor.
[2019-03-08 20:00] VITALS: BP 110/65
[2019-03-08] MEDS ORDERED: Gadavist 7.5mMol/7.5ml vial IV PRN (23:15)
--- NOTE | 2019-03-08 23:30 | Neurology Progress Note ---
Interim History Interim History ROS Limited/Unobtainable: No Complaints: LE Weakness Interim History Brain MRI w/o contrast performed Patient remains stable Review of Systems Neuro Review of Systems This visit was performed on March 08, [address] Brice Palafox. Objective Physical Exam Last Vital Signs Date Time Temp Pulse Resp B/P (MAP) Pulse Ox O2 Delivery O2 Flow Rate FiO2 03/08/19 21:10 86 20 97 Room Air 21 03/08/19 20:00 98.7 110/65 (80) Laboratory Tests Test 03/08/19 07:06 03/08/19 08:40 03/08/19 13:40 Sodium Level 139 MMOL/L (136-145) Potassium Level 3.7 MMOL/L (3.5-5.1) Chloride Level 104 MMOL/L (98-107) Carbon Dioxide Level 27 MMOL/L (21-32) Anion Gap 9 mmol/L (5-15) Blood Urea Nitrogen 17 mg/dL (7-18) Creatinine 0.6 MG/DL (0.55-1.30) Estimat Glomerular Filtration Rate mL/min (>60) Glucose Level 98 MG/DL (74-106) Calcium Level 7.7 MG/DL (8.5-10.1) L Total Bilirubin 0.1 MG/DL (0.2-1.0) L Aspartate Amino Transf (AST/SGOT) 113 U/L (15-37) H Alanine Aminotransferase (ALT/SGPT) 33 U/L (12-78) Alkaline Phosphatase 112 U/L (46-116) Total Protein 6.2 G/DL (6.4-8.2) L Albumin 2.6 G/DL (3.4-5.0) L Globulin 3.6 g/dL Albumin/Globulin Ratio 0.7 (1.0-2.7) L Pending Coccidioides Antibody (Comp Fix) Pending West Nile Virus IgG Antibody Pending West Nile Virus IgM Antibody Pending White Blood Count 10.5 K/UL (4.8-10.8) # Red Blood Count 4.07 M/UL (4.20-5.40) L Hemoglobin 12.2 G/DL (12.0-16.0) Hematocrit 36.0 % (37.0-47.0) L Mean Corpuscular Volume 88 FL (80-99) Mean Corpuscular Hemoglobin 29.9 PG (27.0-31.0) Mean Corpuscular Hemoglobin Concent 33.8 G/DL (32.0-36.0) Red Cell Distribution Width 12.7 % (11.6-14.8) Platelet Count 23 K/UL (150-450) #L Mean Platelet Volume 8.0 FL (6.5-10.1) Neutrophils (%) (Auto) % (45.0-75.0) Lymphocytes (%) (Auto) % (20.0-45.0) Monocytes (%) (Auto) % (1.0-10.0) Eosinophils (%) (Auto) % (0.0-3.0) Basophils (%) (Auto) % (0.0-2.0) Differential Total Cells Counted 100 Neutrophils % (Manual) 59 % (45-75) Lymphocytes % (Manual) 19 % (20-45) L Monocytes % (Manual) 7 % (1-10) Eosinophils % (Manual) 0 % (0-3) Basophils % (Manual) 0 % (0-2) Myelocytes % 1 % (0-0) H Band Neutrophils 14 % (0-8) H Platelet Estimate Decreased L Platelet Morphology Normal Red Blood Cell Morphology Normal Reticulocyte Count 0.4 % (0.5-2.0) L Prothrombin Time 11.1 SEC (9.30-11.50) Prothromb Time International Ratio 1.1 (0.9-1.1) Fibrinogen 167 mg/dL (200-400) L Lactate Dehydrogenase 859 U/L (81-234) H Total Protein (PEP) Pending Albumin (PEP) Pending Globulin (PEP) Pending Csgmx-1-Vstibpbpd Pending Nltih-6-Eazzirdbj Pending Beta Globulins Pending Beta Gamma Globulin Pending PEP Abnormal Protein Bands Pending Protein Electrophoresis Interpret Pending Heparin-PF4 Antibody Screen Pending Hepatitis A IgM Antibody Pending Hepatitis B Surface Antigen Pending Hepatitis B Core IgM Antibody Pending Hepatitis C Antibody Pending Impression/Recommendations Problems: (1) Thrombocytopenia Assessment & Plan: Heme/ Onc W/U (2) Dehydration (3) Urinary tract infection (4) Bilateral leg weakness Assessment & Plan: MRI thoracic spine: Bone marrow signal and alignment are normal. The height of the vertebral bodies appears normal. There is no evidence of a compression fracture. There is no evidence of a disc herniation with normal appearance of the intervertebral discs. The spinal canal is widely patent at all levels within the thoracic spine. The spinal cord is normal in appearance. There is no cord edema, mass or myelomalacia. No epidural collection or other abnormal fluid collection identified. Mild hypertrophic spurring involving the thoracic facets noted at multiple levels. There is no evidence of significant foraminal stenosis or cord compression. No abnormal enhancement is identified. T7 vertebral hemangioma noted. There is a large hiatal hernia. Trace basilar pleural effusions are present. MRI lumbar spine: Bone marrow signal is normal. There is no evidence of bone marrow replacement, contusion or edema, fracture. The visualized part of the distal spinal cord is normal in appearance. Conus medullaris is seen at about lower part of L1 vertebra. There is no abnormal cord or nerve root enhancement. There are kpao-jw-ohrxgiiw degenerative changes which will be described. The L1-2 disc is normal in appearance. There is no stenosis of the canal or foramen. L2-3 shows mild hypertrophy of the lumbar facets. No central or foraminal stenosis demonstrated. L3-4 shows mild central stenosis and narrowing of the lateral recesses due to facet arthropathy. No foraminal stenosis appreciated. L4-5 demonstrates mild central stenosis, narrowing of the lateral recess due to facet arthropathy and redundancy of ligamentum flavum. There is also mild concentric disc bulge associated moderate narrowing of the intervertebral disc and desiccation of the disc with anterolisthesis mild in degree at this level. Moderate right foraminal stenosis noted. L5-S1: The disc is normal in appearance. There is no central stenosis. Facet arthropathy noted. No significant foraminal stenosis appreciated. IMPRESSION: No evidence of compression of the spinal cord or cauda equina. No intrinsic cord abnormality, edema or other neuropathy identified. Moderate degenerative changes of the mid to lower lumbar spine characterized by degenerative disc disease and facet arthropathy. Disease is most severe at L4-5 which shows evidence of central spinal stenosis and narrowing of the lateral recess and moderate right foraminal stenosis. L3-4 Central stenosis also demonstrated. Other incidental findings as above. Please refer to the CT chest abdomen pelvis report as well No clear evidence for weakness demonstrated in patient clinically given normal cord signal on MRI (5) Febrile illness, acute Assessment & Plan: Consider LP if patient becomes febrile, especially without evidence of peripheral leukocytosis. DDX Encephalitis / Meningitis vs Ischemic Stroke Status: stable Recommendations Q3 Neuro Obs Maintain Normothermia Maintain normoglycemia with ISS HgB>8 Correct/ Replete Lytes MRI Brain w/wo contrast Consider LP depending up on MRI w/ con results Na 135-145 PT Karmen Bush N.P. March 08, 2019 23:30
[2019-03-09] VITALS (7 sets, daily range): BP systolic 102–130; BP diastolic 57–79
[2019-03-09] MEDS: cefTRIAXone 2 GM in D5W 55 ML IVPB SCH (02:18)
[2019-03-09 07:29] LABS: HEMATOCRIT 35.9 % (37.0-47.0); HEMOGLOBIN 12.1 G/DL (12.0-16.0); MEAN CORPUSCULAR VOLUME 90 FL (80-99); PLATELET COUNT 15 K/UL (150-450); RED BLOOD COUNT 4.01 M/UL (4.20-5.40); RED CELL DISTRIBUTION WIDTH 12.9 % (11.6-14.8); WHITE BLOOD COUNT 13.2 K/UL (4.8-10.8)
--- NOTE | 2019-03-09 07:30 | NUR ---
NURSE NOTES: Received pt from ASHOK RODRIGUES. pt is alert and orient x4. pt is in RA, No SOB or acute respiratory distress noted. pt has intact IV access RAC 20G SL. Pt has MRI brain today. pt is eating breakfast. all needs attended, bed is locked and is in the lowest position, call light within easy reach. will continue to monitor.
--- NOTE | 2019-03-09 07:31 | NUR ---
HAND-OFF: Report given to ASHOK Mora.
[2019-03-09 07:52] LABS: ANION GAP 10 mmol/L (5-15); BLOOD UREA NITROGEN 20 mg/dL (7-18); CARBON DIOXIDE 25 MMOL/L (21-32); CHLORIDE 105 MMOL/L (98-107); CREATININE 0.7 MG/DL (0.55-1.30); POTASSIUM 4.2 MMOL/L (3.5-5.1); SODIUM 140 MMOL/L (136-145)
--- NOTE | 2019-03-09 08:26 | General Progress Note ---
Assessment/Plan Problem List: (1) Thrombocytopenia ICD Codes: D69.6 - Thrombocytopenia, unspecified SNOMED: 385282044 (2) Urinary tract infection ICD Codes: N39.0 - Urinary tract infection, site not specified SNOMED: 13300674 (3) Bilateral leg weakness ICD Codes: R29.898 - Other symptoms and signs involving the musculoskeletal system SNOMED: 3950580 (4) Febrile illness, acute ICD Codes: R50.9 - Fever, unspecified SNOMED: 276679628 (5) Dehydration ICD Codes: E86.0 - Dehydration SNOMED: 99607406 Status: stable, progressing Assessment/Plan: pt diet abx ivf heme eval cbc bmp am Subjective Constitutional: Reports: weakness Allergies: Coded Allergies: No Known Allergies (Unverified , 03/07/19) All Systems: reviewed and negative except above Subjective eating calm Objective Last 24 Hour Vital Signs Date Time Temp Pulse Resp B/P (MAP) Pulse Ox O2 Delivery O2 Flow Rate FiO2 03/09/19 04:00 98.5 94 20 114/74 (87) 96 03/09/19 00:00 98.3 85 18 123/65 (84) 98 03/08/19 21:10 86 20 97 Room Air 21 03/08/19 21:00 Room Air 03/08/19 20:00 98.7 87 20 110/65 (80) 96 03/08/19 16:00 98.0 81 20 118/70 (86) 97 03/08/19 12:00 98.1 78 20 108/68 (81) 96 03/08/19 09:00 Room Air Intake and Output 03/08/19 03/09/19 18:59 06:59 Intake Total 240 ml 110 ml Output Total 50 ml 150 ml Balance 190 ml -40 ml Intake Oral 240 ml IV Total 110 ml Output Urine Total 150 ml Emesis 50 ml # Voids 5 2 Laboratory Tests 03/08/19 08:40: White Blood Count 10.5#, Red Blood Count 4.07L, Hemoglobin 12.2, Hematocrit 36.0L, Mean Corpuscular Volume 88, Mean Corpuscular Hemoglobin 29.9, Mean Corpuscular Hemoglobin Concent 33.8, Red Cell Distribution Width 12.7, Platelet Count 23#L, Mean Platelet Volume 8.0, Neutrophils (%) (Auto) , Lymphocytes (%) ( Auto) , Monocytes (%) (Auto) , Eosinophils (%) (Auto) , Basophils (%) (Auto) , Differential Total Cells Counted 100, Neutrophils % (Manual) 59, Lymphocytes % ( Manual) 19L, Monocytes % (Manual) 7, Eosinophils % (Manual) 0, Basophils % ( Manual) 0, Myelocytes % 1H, Band Neutrophils 14H, Platelet Estimate DecreasedL, Platelet Morphology Normal, Red Blood Cell Morphology Normal 03/08/19 13:40: Reticulocyte Count 0.4L, Prothrombin Time 11.1, Prothromb Time International Ratio 1.1, Fibrinogen 167L, Lactate Dehydrogenase 859H, Total Protein (PEP) [ Pending], Albumin (PEP) [Pending], Globulin (PEP) [Pending], Albumin/Globulin Ratio [Pending], Irjnm-1-Ttkhrygjq [Pending], Caiys-9-Rbufzaadx [Pending], Beta Globulins [Pending], Beta Gamma Globulin [Pending], PEP Abnormal Protein Bands [ Pending], Protein Electrophoresis Interpret [Pending], Heparin-PF4 Antibody Screen [Pending], Hepatitis A IgM Antibody Negative, Hepatitis B Surface Antigen Negative, Hepatitis B Core IgM Antibody Negative, Hepatitis C Antibody 0.1 03/09/19 06:30: White Blood Count 13.2H, Red Blood Count 4.01L, Hemoglobin 12.1, Hematocrit 35.9L, Mean Corpuscular Volume 90, Mean Corpuscular Hemoglobin 30.2, Mean Corpuscular Hemoglobin Concent 33.7, Red Cell Distribution Width 12.9, Platelet Count 15L, Mean Platelet Volume 11.1H, Neutrophils (%) (Auto) , Lymphocytes (%) (Auto) , Monocytes (%) (Auto) , Eosinophils (%) (Auto) , Basophils (%) (Auto) , Neutrophils % (Manual) [Pending], Lymphocytes % (Manual) [Pending], Platelet Estimate [Pending], Sodium Level 140, Potassium Level 4.2, Chloride Level 105, Carbon Dioxide Level 25, Anion Gap 10, Blood Urea Nitrogen 20H, Creatinine 0.7, Estimat Glomerular Filtration Rate , Glucose Level 96, Hemoglobin A1c 6.4H, Calcium Level 8.0L Height (Feet): 5 Height (Inches): 1.00 Weight (Pounds): 150 General Appearance: lethargic EENT: normal ENT inspection Neck: normal alignment Cardiovascular: normal peripheral pulses, normal rate, regular rhythm Respiratory/Chest: chest wall non-tender, lungs clear, normal breath sounds Abdomen: normal bowel sounds, non tender, soft Extremities: normal inspection Edema: no edema noted Arm (L), no edema noted Arm (R), no edema noted Leg (L), no edema noted Leg (R), no edema noted Pedal (L), no edema noted Pedal (R), no edema noted Generalized Neurologic: motor weakness Skin: normal pigmentation, warm/dry Jason Castanon DO March 09, 2019 08:26
--- NOTE | 2019-03-09 09:00 | NUR ---
NURSE NOTES: pt doesn't know Sami to sign consent form for MRI with contrast, called with blue phone and translator interpreter DANDRE GARCIA with [place] [id number] translated for pt, and pt signed consent form. will continue to monitor.
--- NOTE | 2019-03-09 11:19 | NUR ---
CASE MANAGEMENT: REVIEW SI: UTI . THROMBOCYTOPENIA . DEHYDRATION T 98.2 HR 94 RR 20 BP 123/65 SAT 96% ROOM AIR WBC 13.2 BUN 20 IS: ROCEPHIN IV Q24HR D5W IVF @55ML/HR MED/SURG STATUS DCP: PATIENT IS FROM HOME
[2019-03-09] MEDS ORDERED: Miralax 17gm pkt ORAL PRN (15:30)
--- NOTE | 2019-03-09 17:37 | NUR ---
NURSE NOTES: Dr brooks visited pt , he is aware about PLT 15, No new order. will continue to monitor.
--- NOTE | 2019-03-09 19:27 | Pulmonology Progress Note ---
Assessment/Plan Problems: (1) Febrile illness, acute (2) Recent foreign travel (3) Bilateral leg weakness Assessment/Plan doing better afebrile now f/u neuro recommendation check cultures, blood cultures are negative so far. pt/ot might need placement. a Subjective ROS Limited/Unobtainable: No Allergies: Coded Allergies: No Known Allergies (Unverified , 03/07/19) Objective Last 24 Hour Vital Signs Date Time Temp Pulse Resp B/P (MAP) Pulse Ox O2 Delivery O2 Flow Rate FiO2 03/09/19 16:00 97.1 82 20 130/76 (94) 100 03/09/19 12:00 97.8 98 19 118/76 (90) 98 03/09/19 09:00 Room Air 03/09/19 08:00 98.2 84 20 112/69 (83) 99 03/09/19 04:00 98.5 94 20 114/74 (87) 96 03/09/19 00:00 98.3 85 18 123/65 (84) 98 03/08/19 21:10 86 20 97 Room Air 21 03/08/19 21:00 Room Air 03/08/19 20:00 98.7 87 20 110/65 (80) 96 Intake and Output 03/08/19 03/09/19 19:00 07:00 Intake Total 240 ml 110 ml Output Total 50 ml 150 ml Balance 190 ml -40 ml Intake Oral 240 ml IV Total 110 ml Output Urine Total 150 ml Emesis 50 ml # Voids 5 2 Objective HEENT: normocephalic, atraumatic Respiratory/Chest: chest wall non-tender, lungs clear Cardiovascular: normal peripheral pulses, normal rate Abdomen: normal bowel sounds, no organomegaly Extremities: no cyanosis Skin: no lesions Microbiology Date/Time Source Procedure Growth Status 03/07/19 01:42 Blood Blood Culture - Preliminary NO GROWTH AFTER 48 HOURS Resulted 03/07/19 01:30 Blood Blood Culture - Preliminary NO GROWTH AFTER 48 HOURS Resulted 03/07/19 22:05 Nasopharynx - Final Complete 03/07/19 22:05 Nasopharynx - Final Complete 03/07/19 20:00 Indwelling Cath Urine Culture - Preliminary NO GROWTH AFTER 24 HOURS Resulted Laboratory Tests 03/09/19 06:30: White Blood Count 13.2H, Red Blood Count 4.01L, Hemoglobin 12.1, Hematocrit 35.9L, Mean Corpuscular Volume 90, Mean Corpuscular Hemoglobin 30.2, Mean Corpuscular Hemoglobin Concent 33.7, Red Cell Distribution Width 12.9, Platelet Count 15L, Mean Platelet Volume 11.1H, Neutrophils (%) (Auto) , Lymphocytes (%) (Auto) , Monocytes (%) (Auto) , Eosinophils (%) (Auto) , Basophils (%) (Auto) , Differential Total Cells Counted 100, Neutrophils % (Manual) 40L, Lymphocytes % (Manual) 27, Monocytes % (Manual) 22H, Eosinophils % (Manual) 0, Basophils % ( Manual) 0, Metamyelocytes % 1H, Myelocytes % 1H, Band Neutrophils 9H, Reactive Lymphocytes 1+, Platelet Estimate DecreasedL, Platelet Morphology Normal, Red Blood Cell Morphology Normal, Sodium Level 140, Potassium Level 4.2, Chloride Level 105, Carbon Dioxide Level 25, Anion Gap 10, Blood Urea Nitrogen 20H, Creatinine 0.7, Estimat Glomerular Filtration Rate , Glucose Level 96, Hemoglobin A1c 6.4H, Calcium Level 8.0L Current Medications Medications (Trade) Dose Ordered Sig/Lisette Route PRN Reason Start Time Stop Time Status Last Admin Dose Admin Acetaminophen (Tylenol) 650 mg Q4H PRN ORAL fever (temp>100.5F) 03/07/19 15:15 04/06/19 15:14 Albuterol/ Ipratropium (Albuterol/ Ipratropium) 3 ml Q4H PRN HHN Shortness of Breath 03/07/19 15:15 03/12/19 15:14 Ceftriaxone Sodium 2 gm/ Dextrose 55 ml @ 110 mls/hr Q24H IVPB 03/08/19 03:00 03/15/19 02:59 03/09/19 02:18 Gadobutrol (Gadavist) 7.5 mmol NOW PRN IV Radiology Procedure 03/08/19 23:15 03/12/19 23:14 Morphine Sulfate (Morphine Sulfate) 2 mg Q4H PRN IVP Moderate Pain (Pain Scale 4-6) 03/07/19 15:15 03/14/19 15:14 Nitroglycerin (Ntg) 0.4 mg Q5M PRN SL Prn Chest Pain 03/07/19 15:15 04/06/19 15:14 Ondansetron HCl (Zofran) 4 mg Q6H PRN IVP Nausea & Vomiting 03/07/19 15:15 04/06/19 15:14 03/08/19 16:07 Polyethylene Glycol (Miralax) 17 gm DAILYPRN PRN ORAL Constipation 03/07/19 15:15 04/06/19 15:14 Temazepam (Restoril) 15 mg HSPRN PRN ORAL Insomnia 03/07/19 20:00 03/14/19 19:59 Jenny Wilkerson MD March 09, 2019 19:27
--- NOTE | 2019-03-09 19:33 | NUR ---
HAND-OFF: Report given to ASHOK RODRIGUES.
--- NOTE | 2019-03-09 19:40 | NUR ---
NURSE NOTES: Pt received asleep in bed, able to make needs known, call light within reach, no c/o pain or signs of distress, will continue to monitor.
--- NOTE | 2019-03-09 23:50 | Neurology Progress Note ---
Interim History Interim History ROS Limited/Unobtainable: No Complaints: LE Weakness Events: Awaiting MRI Brain w/wo contrast to be performed Interim History This visit was performed on March 09, [address] Brice Palafox. Objective Physical Exam Last Vital Signs Date Time Temp Pulse Resp B/P (MAP) Pulse Ox O2 Delivery O2 Flow Rate FiO2 03/09/19 21:00 Room Air 03/09/19 21:00 86 128/79 (95) 03/09/19 20:33 20 97 21 03/09/19 20:00 98.8 Laboratory Tests Test 03/09/19 06:30 White Blood Count 13.2 K/UL (4.8-10.8) H Red Blood Count 4.01 M/UL (4.20-5.40) L Hemoglobin 12.1 G/DL (12.0-16.0) Hematocrit 35.9 % (37.0-47.0) L Mean Corpuscular Volume 90 FL (80-99) Mean Corpuscular Hemoglobin 30.2 PG (27.0-31.0) Mean Corpuscular Hemoglobin Concent 33.7 G/DL (32.0-36.0) Red Cell Distribution Width 12.9 % (11.6-14.8) Platelet Count 15 K/UL (150-450) L Mean Platelet Volume 11.1 FL (6.5-10.1) H Neutrophils (%) (Auto) % (45.0-75.0) Lymphocytes (%) (Auto) % (20.0-45.0) Monocytes (%) (Auto) % (1.0-10.0) Eosinophils (%) (Auto) % (0.0-3.0) Basophils (%) (Auto) % (0.0-2.0) Differential Total Cells Counted 100 Neutrophils % (Manual) 40 % (45-75) L Lymphocytes % (Manual) 27 % (20-45) Monocytes % (Manual) 22 % (1-10) H Eosinophils % (Manual) 0 % (0-3) Basophils % (Manual) 0 % (0-2) Metamyelocytes % 1 % (0-0) H Myelocytes % 1 % (0-0) H Band Neutrophils 9 % (0-8) H Reactive Lymphocytes 1+ Platelet Estimate Decreased L Platelet Morphology Normal Red Blood Cell Morphology Normal Sodium Level 140 MMOL/L (136-145) Potassium Level 4.2 MMOL/L (3.5-5.1) Chloride Level 105 MMOL/L (98-107) Carbon Dioxide Level 25 MMOL/L (21-32) Anion Gap 10 mmol/L (5-15) Blood Urea Nitrogen 20 mg/dL (7-18) H Creatinine 0.7 MG/DL (0.55-1.30) Estimat Glomerular Filtration Rate mL/min (>60) Glucose Level 96 MG/DL (74-106) Hemoglobin A1c 6.4 % (4.3-6.0) H Calcium Level 8.0 MG/DL (8.5-10.1) L Neurologic Exam Mental Status: awake, alert, oriented x4, normal cognition, good mathematical skills, normal recent memory, normal remote memory, preserved visuospatial function Speech: normal speech, no dysarthia Language: normal language, no aphasia Cranial Nerve II: fundus normal, visual noriega, no papilledema Cranial Nerves III, IV, : PERRLA, EOMI, pupils Cranial Nerve V: normal facial sensations, temporales function normal, masseters function normal, pterygoids function normal Cranial Nerve VII: no facial asymmetry, normal facial expressions Cranial Nerve VIII: normal hearing, no nystagmus Cranial Nerve IX: normal palate elevation, gag response Cranial Nerve X: no voice hoarseness Cranial Nerve XI: SCM symmetric, trapezii function normal Cranial Nerve XII: tongue midline, no tongue atrophy/fasciculations Motor System: normal muscle tone, no involuntary movement, no muscle wasting Sensory: normal pinprick, normal light touch Coordination: normal finger to nose bilaterally Deep Tendon Reflexes: 1+ bicep (L), 1+ bicep (R), 1+ tricep (L), 1+ tricep (R) , 1+ brachioradialis (L), 1+ brachioradialis (R), 1+ knee (L), 1+ knee (R), 1+ ankle (L), 1+ ankle (R) Reflexes: flexor plantar (L), flexor plantar (R); extensor plantar (L), extensor plantar (R) Objective LLE 2/5 RLE 3/5 weakest at hip flexors UEs full strength and AG FC x 4 Non focal on exam with generalized weakness. No facial weakness or tongue deviationSpeech is in Chilean but all normal. Impression/Recommendations Problems: (1) Thrombocytopenia (2) Dehydration (3) Urinary tract infection (4) Bilateral leg weakness Assessment & Plan: MRI thoracic spine: Bone marrow signal and alignment are normal. The height of the vertebral bodies appears normal. There is no evidence of a compression fracture. There is no evidence of a disc herniation with normal appearance of the intervertebral discs. The spinal canal is widely patent at all levels within the thoracic spine. The spinal cord is normal in appearance. There is no cord edema, mass or myelomalacia. No epidural collection or other abnormal fluid collection identified. Mild hypertrophic spurring involving the thoracic facets noted at multiple levels. There is no evidence of significant foraminal stenosis or cord compression. No abnormal enhancement is identified. T7 vertebral hemangioma noted. There is a large hiatal hernia. Trace basilar pleural effusions are present. MRI lumbar spine: Bone marrow signal is normal. There is no evidence of bone marrow replacement, contusion or edema, fracture. The visualized part of the distal spinal cord is normal in appearance. Conus medullaris is seen at about lower part of L1 vertebra. There is no abnormal cord or nerve root enhancement. There are [id number] degenerative changes which will be described. The L1-2 disc is normal in appearance. There is no stenosis of the canal or foramen. L2-3 shows mild hypertrophy of the lumbar facets. No central or foraminal stenosis demonstrated. L3-4 shows mild central stenosis and narrowing of the lateral recesses due to facet arthropathy. No foraminal stenosis appreciated. L4-5 demonstrates mild central stenosis, narrowing of the lateral recess due to facet arthropathy and redundancy of ligamentum flavum. There is also mild concentric disc bulge associated moderate narrowing of the intervertebral disc and desiccation of the disc with anterolisthesis mild in degree at this level. Moderate right foraminal stenosis noted. L5-S1: The disc is normal in appearance. There is no central stenosis. Facet arthropathy noted. No significant foraminal stenosis appreciated. IMPRESSION: No evidence of compression of the spinal cord or cauda equina. No intrinsic cord abnormality, edema or other neuropathy identified. Moderate degenerative changes of the mid to lower lumbar spine characterized by degenerative disc disease and facet arthropathy. Disease is most severe at L4-5 which shows evidence of central spinal stenosis and narrowing of the lateral recess and moderate right foraminal stenosis. L3-4 Central stenosis also demonstrated. Other incidental findings as above. Please refer to the CT chest abdomen pelvis report as well No clear evidence for weakness demonstrated in patient clinically given normal cord signal on MRI The T2 FLAIR sequence demonstrates some areas of sulcal hyperintensity particularlyin the posterior aspects of both cerebral hemispheres but also within the rightfrontal region. The main concern is that there is an occult subarachnoid bleed. There is no mass effect or edema within the brain. The ventricles appear normal.Basal cisterns are normal. Flow voids are seen within the superior sagittal sinus,visualized part of the basilar artery and both ICA. There is no abnormal intra-axialor extra-axial fluid collection. As stated previously there is no diffusionrestriction. Empty sella is noted. There is a T2 hyperintense signal within the rightmastoid bone and some mucosal thickening within paranasal sinuses. IMPRESSION: Abnormal T2 hyperintense signal within cerebral sulci bilaterally predominating inthe posterior part of the cerebrum. T his is nonspecific, but the main concern wouldbe an occult subarachnoid bleed. Differential diagnosis includes meningitis,leptomeningeal carcinomatosis or thickening, artifact related to elevated blood poolto CSF ratio. There is no evidence of diffusion restriction i.e. acute stroke toaccount for the finding. Further evaluation with gadolinium-enhanced MRI isrecommended. Clinical correlation also needed. Noncontrast CT of the head is alsorecommended. Sinus disease. Right mastoiditis. (5) Febrile illness, acute Assessment & Plan: Consider LP if patient becomes febrile, especially without evidence of peripheral leukocytosis. DDX Encephalitis / Meningitis vs Ischemic Stroke Status: stable, tolerating diet, unchanged Recommendations MRI Brain w/wo contrast ordered - awaiting completion Abx as per ID Normothermia Normoglycemia with ISS HgB>8 Replace/ Replete lytes Neuro Obs Q4 hrs Continue to track trend CBC/ CMP Check TSH Na 135-145 Consider LP depending upon results of MRI w/ contrast Karmen Mena N.P. March 09, 2019 23:50
[2019-03-10] VITALS (7 sets, daily range): BP systolic 92–140; BP diastolic 56–73
[2019-03-10] MEDS: cefTRIAXone 2 GM in D5W 55 ML IVPB SCH (02:19)
--- NOTE | 2019-03-10 07:30 | NUR ---
HAND-OFF: Report given to ASHOK Romero.
[2019-03-10 08:04] LABS: HEMATOCRIT 34.4 % (37.0-47.0); HEMOGLOBIN 11.4 G/DL (12.0-16.0); MEAN CORPUSCULAR VOLUME 89 FL (80-99); PLATELET COUNT 20 K/UL (150-450); RED BLOOD COUNT 3.89 M/UL (4.20-5.40); RED CELL DISTRIBUTION WIDTH 12.9 % (11.6-14.8); WHITE BLOOD COUNT 8.5 K/UL (4.8-10.8)
[2019-03-10 08:14] LABS: ANION GAP 7 mmol/L (5-15); BLOOD UREA NITROGEN 24 mg/dL (7-18); CALCIUM 8.2 MG/DL (8.5-10.1); CARBON DIOXIDE 26 MMOL/L (21-32); CHLORIDE 106 MMOL/L (98-107); CREATININE 0.7 MG/DL (0.55-1.30); POTASSIUM 4.5 MMOL/L (3.5-5.1); SODIUM 139 MMOL/L (136-145)
--- NOTE | 2019-03-10 08:54 | NUR ---
NURSE NOTES: pt in bed with no sob nor in any form of distress noted. breathing regular and unlabored. denies any pain at this time. bed in lowest position. call light within reach at all time. will continue to monitor
--- NOTE | 2019-03-10 08:58 | General Progress Note ---
Assessment/Plan Problem List: (1) Thrombocytopenia ICD Codes: D69.6 - Thrombocytopenia, unspecified SNOMED: 654892786 (2) Urinary tract infection ICD Codes: N39.0 - Urinary tract infection, site not specified SNOMED: 19510959 (3) Bilateral leg weakness ICD Codes: R29.898 - Other symptoms and signs involving the musculoskeletal system SNOMED: 9426506 (4) Febrile illness, acute ICD Codes: R50.9 - Fever, unspecified SNOMED: 063100088 (5) Dehydration ICD Codes: E86.0 - Dehydration SNOMED: 23094782 Status: stable, progressing Assessment/Plan: pt diet abx ivf heme eval cbc bmp am brotman aru eval Subjective Constitutional: Reports: weakness Allergies: Coded Allergies: No Known Allergies (Unverified , 03/07/19) All Systems: reviewed and negative except above Subjective eating calm Objective Last 24 Hour Vital Signs Date Time Temp Pulse Resp B/P (MAP) Pulse Ox O2 Delivery O2 Flow Rate FiO2 03/10/19 08:49 Room Air 03/10/19 08:20 80 20 97 Room Air 21 03/10/19 08:00 97.3 81 20 111/67 (82) 100 03/10/19 04:00 98.6 86 20 109/72 (84) 99 03/10/19 01:00 99 140/72 (94) 99 03/10/19 00:00 98.0 90 18 92/56 (68) 95 03/09/19 21:00 Room Air 03/09/19 21:00 86 128/79 (95) 03/09/19 20:33 78 20 97 Room Air 21 03/09/19 20:00 98.8 98 18 102/57 (72) 95 03/09/19 16:00 97.1 82 20 130/76 (94) 100 03/09/19 12:00 97.8 98 19 118/76 (90) 98 03/09/19 09:00 Room Air Intake and Output 03/09/19 03/10/19 19:00 07:00 Intake Total 720 ml 110 ml Balance 720 ml 110 ml Intake Oral 720 ml IV Total 110 ml # Voids 3 2 Laboratory Tests 03/10/19 07:51: White Blood Count 8.5, Red Blood Count 3.89L, Hemoglobin 11.4L, Hematocrit 34.4L , Mean Corpuscular Volume 89, Mean Corpuscular Hemoglobin 29.5, Mean Corpuscular Hemoglobin Concent 33.3, Red Cell Distribution Width 12.9, Platelet Count 20L, Mean Platelet Volume 14.8H, Neutrophils (%) (Auto) , Lymphocytes (%) (Auto) , Monocytes (%) (Auto) , Eosinophils (%) (Auto) , Basophils (%) (Auto) , Neutrophils % (Manual) [Pending], Lymphocytes % (Manual) [Pending], Platelet Estimate [Pending], Platelet Morphology [Pending], Sodium Level 139, Potassium Level 4.5, Chloride Level 106, Carbon Dioxide Level 26, Anion Gap 7, Blood Urea Nitrogen 24H, Creatinine 0.7, Estimat Glomerular Filtration Rate , Glucose Level 100, Calcium Level 8.2L Height (Feet): 5 Height (Inches): 1.00 Weight (Pounds): 150 General Appearance: lethargic EENT: normal ENT inspection Neck: normal alignment Cardiovascular: normal peripheral pulses, normal rate, regular rhythm Respiratory/Chest: chest wall non-tender, lungs clear, normal breath sounds Abdomen: normal bowel sounds, non tender, soft Extremities: normal inspection Edema: no edema noted Arm (L), no edema noted Arm (R), no edema noted Leg (L), no edema noted Leg (R), no edema noted Pedal (L), no edema noted Pedal (R), no edema noted Generalized Neurologic: responsive, motor weakness Skin: normal pigmentation, warm/dry Jason CastanonAna March 10, 2019 08:58
--- NOTE | 2019-03-10 16:42 | NUR ---
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 THROMBOCYTOPENIA . DEHYDRATION VS: BP 92/56, P 90, T 97.3, RR 20, SpO2 100 RBC 3.89, H&H 11.4/28.2, IS:CEFTRIAXONE 55ml IVPB LORAZEPAM 1mg IV MED/SURG STATUS
--- NOTE | 2019-03-10 17:39 | Hematology/Onc Progress Note ---
Assessment/Plan Assessment/Plan Assessment and Recs: # Thrombocytopenia - potential causes multifactorial, evaluate liver and viral etiologies to begin, also could be related to underlying medications patient has received such as heparin (HAS BEEN DISCONTINUED), also at this time on abx, cefe and vanc, monitor abx closely, ALSO SMEAR reviewed --> Hep panel and HIV are negative --> CT of the a/p reviewed,and no cirrhosis/hsm reviewed, no predominant LAD, lymphadenopathy noted, no mass --> Peripheral smear has been reviewed, no blasts noted, 1% myelocytes, 1% metamyelocytes noted as well --> abx and other meds have been reviewed --> Transfuse if Plt < 20k and fever, or if Plt < 10k without fever --> heparin has been discontinued sq --> HIT Ab has been ordered --> A BONE MARROW BIOPSY has been ordered to r/o malignancy/leukemia (for thrombocytopenia) dw rn # Anemia of chronic disease (or of iron deficiency) due to underlying chronic medical issues, multifactorial --> CONSIDER if hgb lower w/u --> No evidence of hemolysis is noted, peripheral smear has been reviewed. --> Hgb goal >7. Transfuse prn. --> Epogen or iron at this time is not particularly indicated # Urinary tract infection --> blood and urine culture pending --> on abx as per id, vanc/cefepime # Dehydration --> IVF has been started # Lower extremity weakness Differential diagnosis include was not limited to Guillain-Pike v uti v generalized weakness --> LP considering as per neuro The timing of this note does not necessarily reflect the time of the patient was seen. Greatly appreciate consultation! Subjective Constitutional: Denies: no symptoms, chills, fever, malaise, weakness, other HEENT: Denies: no symptoms, eye pain, blurred vision, tearing, double vision, ear pain, ear discharge, nose pain, nose congestion, throat pain, throat swelling, mouth pain, mouth swelling, other Cardiovascular: Denies: no symptoms, chest pain, edema, irregular heart rate, lightheadedness, palpitations, syncope, other Respiratory: Denies: no symptoms, cough, shortness of breath, SOB with excertion, SOB at rest, sputum, wheezing, other Genitourinary: Denies: no symptoms, burning, discharge, frequency, flank pain, hematuria, incontinence, pain, urgency, other Neurologic/Psychiatric: Denies: no symptoms, anxiety, depressed, emotional problems, headache, numbness, paresthesia, pre-existing deficit, seizure, tingling, tremors, weakness, other Endocrine: Denies: no symptoms, excessive sweating, flushing, intolerance to cold, intolerance to heat, increased hunger, increased thirst, increased urine, unexplained weight gain, unexplained weight loss, other Hematologic/Lymphatic: Denies: no symptoms, anemia, easy bleeding, easy bruising, adenopathy, other Allergies: Coded Allergies: No Known Allergies (Unverified , 03/07/19) Subjective 03/10: platelets are stable, no events, no fevers noted, have placed orders for bone marrow biopsy Objective Objective Current Medications Medications (Trade) Dose Ordered Sig/Lisette Route PRN Reason Start Time Stop Time Status Last Admin Dose Admin Acetaminophen (Tylenol) 650 mg Q4H PRN ORAL fever (temp>100.5F) 03/07/19 15:15 04/06/19 15:14 Albuterol/ Ipratropium (Albuterol/ Ipratropium) 3 ml Q4H PRN HHN Shortness of Breath 03/07/19 15:15 03/12/19 15:14 Ceftriaxone Sodium 2 gm/ Dextrose 55 ml @ 110 mls/hr Q24H IVPB 03/08/19 03:00 03/15/19 02:59 03/10/19 02:19 Gadobutrol (Gadavist) 7.5 mmol NOW PRN IV Radiology Procedure 03/08/19 23:15 03/12/19 23:14 Morphine Sulfate (Morphine Sulfate) 2 mg Q4H PRN IVP Moderate Pain (Pain Scale 4-6) 03/07/19 15:15 03/14/19 15:14 Nitroglycerin (Ntg) 0.4 mg Q5M PRN SL Prn Chest Pain 03/07/19 15:15 04/06/19 15:14 Ondansetron HCl (Zofran) 4 mg Q6H PRN IVP Nausea & Vomiting 03/07/19 15:15 04/06/19 15:14 03/08/19 16:07 Polyethylene Glycol (Miralax) 17 gm DAILYPRN PRN ORAL Constipation 03/07/19 15:15 04/06/19 15:14 Temazepam (Restoril) 15 mg HSPRN PRN ORAL Insomnia 03/07/19 20:00 03/14/19 19:59 Last 24 Hour Vital Signs Date Time Temp Pulse Resp B/P (MAP) Pulse Ox O2 Delivery O2 Flow Rate FiO2 03/10/19 16:00 97.8 82 20 125/73 (90) 97 03/10/19 12:00 97.8 88 20 127/71 (89) 95 03/10/19 08:49 Room Air 03/10/19 08:20 80 20 97 Room Air 21 03/10/19 08:00 97.3 81 20 111/67 (82) 100 03/10/19 04:00 98.6 86 20 109/72 (84) 99 03/10/19 01:00 99 140/72 (94) 99 03/10/19 00:00 98.0 90 18 92/56 (68) 95 03/09/19 21:00 Room Air 03/09/19 21:00 86 128/79 (95) 03/09/19 20:33 78 20 97 Room Air 21 03/09/19 20:00 98.8 98 18 102/57 (72) 95 03/09/19 16:00 97.1 82 20 130/76 (94) 100 03/09/19 12:00 97.8 98 19 118/76 (90) 98 03/09/19 09:00 Room Air 03/09/19 08:00 98.2 84 20 112/69 (83) 99 03/09/19 04:00 98.5 94 20 114/74 (87) 96 03/09/19 00:00 98.3 85 18 123/65 (84) 98 03/08/19 21:10 86 20 97 Room Air 21 03/08/19 21:00 Room Air 03/08/19 20:00 98.7 87 20 110/65 (80) 96 Intake and Output 03/09/19 03/10/19 18:59 06:59 Intake Total 720 ml 110 ml Balance 720 ml 110 ml Intake Oral 720 ml IV Total 110 ml # Voids 3 2 Labs Test 03/08/19 07:06 03/08/19 08:40 03/08/19 13:40 03/09/19 06:30 Sodium Level 139 MMOL/L (136-145) 140 MMOL/L (136-145) Potassium Level 3.7 MMOL/L (3.5-5.1) 4.2 MMOL/L (3.5-5.1) Chloride Level 104 MMOL/L (98-107) 105 MMOL/L (98-107) Carbon Dioxide Level 27 MMOL/L (21-32) 25 MMOL/L (21-32) Anion Gap 9 mmol/L (5-15) 10 mmol/L (5-15) Blood Urea Nitrogen 17 mg/dL (7-18) 20 mg/dL (7-18) Creatinine 0.6 MG/DL (0.55-1.30) 0.7 MG/DL (0.55-1.30) Estimat Glomerular Filtration Rate mL/min (>60) mL/min (>60) Glucose Level 98 MG/DL (74-106) 96 MG/DL (74-106) Calcium Level 7.7 MG/DL (8.5-10.1) 8.0 MG/DL (8.5-10.1) Total Bilirubin 0.1 MG/DL (0.2-1.0) Aspartate Amino Transf (AST/SGOT) 113 U/L (15-37) Alanine Aminotransferase (ALT/SGPT) 33 U/L (12-78) Alkaline Phosphatase 112 U/L (46-116) Total Protein 6.2 G/DL (6.4-8.2) Albumin 2.6 G/DL (3.4-5.0) Globulin 3.6 g/dL Albumin/Globulin Ratio 0.7 (1.0-2.7) White Blood Count 10.5 K/UL (4.8-10.8) 13.2 K/UL (4.8-10.8) Red Blood Count 4.07 M/UL (4.20-5.40) 4.01 M/UL (4.20-5.40) Hemoglobin 12.2 G/DL (12.0-16.0) 12.1 G/DL (12.0-16.0) Hematocrit 36.0 % (37.0-47.0) 35.9 % (37.0-47.0) Mean Corpuscular Volume 88 FL (80-99) 90 FL (80-99) Mean Corpuscular Hemoglobin 29.9 PG (27.0-31.0) 30.2 PG (27.0-31.0) Mean Corpuscular Hemoglobin Concent 33.8 G/DL (32.0-36.0) 33.7 G/DL (32.0-36.0) Red Cell Distribution Width 12.7 % (11.6-14.8) 12.9 % (11.6-14.8) Platelet Count 23 K/UL (150-450) 15 K/UL (150-450) Mean Platelet Volume 8.0 FL (6.5-10.1) 11.1 FL (6.5-10.1) Neutrophils (%) (Auto) % (45.0-75.0) % (45.0-75.0) Lymphocytes (%) (Auto) % (20.0-45.0) % (20.0-45.0) Monocytes (%) (Auto) % (1.0-10.0) % (1.0-10.0) Eosinophils (%) (Auto) % (0.0-3.0) % (0.0-3.0) Basophils (%) (Auto) % (0.0-2.0) % (0.0-2.0) Differential Total Cells Counted 100 100 Neutrophils % (Manual) 59 % (45-75) 40 % (45-75) Lymphocytes % (Manual) 19 % (20-45) 27 % (20-45) Monocytes % (Manual) 7 % (1-10) 22 % (1-10) Eosinophils % (Manual) 0 % (0-3) 0 % (0-3) Basophils % (Manual) 0 % (0-2) 0 % (0-2) Myelocytes % 1 % (0-0) 1 % (0-0) Band Neutrophils 14 % (0-8) 9 % (0-8) Platelet Estimate Decreased Decreased Platelet Morphology Normal Normal Red Blood Cell Morphology Normal Normal Reticulocyte Count 0.4 % (0.5-2.0) Prothrombin Time 11.1 SEC (9.30-11.50) Prothromb Time International Ratio 1.1 (0.9-1.1) Fibrinogen 167 mg/dL (200-400) Lactate Dehydrogenase 859 U/L (81-234) Hepatitis A IgM Antibody Negative (Negative) Hepatitis B Surface Antigen Negative (Negative) Hepatitis B Core IgM Antibody Negative (Negative) Hepatitis C Antibody 0.1 s/co ratio (0.0-0.9) Metamyelocytes % 1 % (0-0) Reactive Lymphocytes 1+ Hemoglobin A1c 6.4 % (4.3-6.0) Test 03/10/19 07:51 White Blood Count 8.5 K/UL (4.8-10.8) Red Blood Count 3.89 M/UL (4.20-5.40) Hemoglobin 11.4 G/DL (12.0-16.0) Hematocrit 34.4 % (37.0-47.0) Mean Corpuscular Volume 89 FL (80-99) Mean Corpuscular Hemoglobin 29.5 PG (27.0-31.0) Mean Corpuscular Hemoglobin Concent 33.3 G/DL (32.0-36.0) Red Cell Distribution Width 12.9 % (11.6-14.8) Platelet Count 20 K/UL (150-450) Mean Platelet Volume 14.8 FL (6.5-10.1) Neutrophils (%) (Auto) % (45.0-75.0) Lymphocytes (%) (Auto) % (20.0-45.0) Monocytes (%) (Auto) % (1.0-10.0) Eosinophils (%) (Auto) % (0.0-3.0) Basophils (%) (Auto) % (0.0-2.0) Differential Total Cells Counted 100 Neutrophils % (Manual) 25 % (45-75) Lymphocytes % (Manual) 51 % (20-45) Monocytes % (Manual) 21 % (1-10) Eosinophils % (Manual) 1 % (0-3) Basophils % (Manual) 0 % (0-2) Band Neutrophils 2 % (0-8) Reactive Lymphocytes 1+ Platelet Estimate Decreased Platelet Morphology Normal Hypochromasia 1+ Sodium Level 139 MMOL/L (136-145) Potassium Level 4.5 MMOL/L (3.5-5.1) Chloride Level 106 MMOL/L (98-107) Carbon Dioxide Level 26 MMOL/L (21-32) Anion Gap 7 mmol/L (5-15) Blood Urea Nitrogen 24 mg/dL (7-18) Creatinine 0.7 MG/DL (0.55-1.30) Estimat Glomerular Filtration Rate mL/min (>60) Glucose Level 100 MG/DL (74-106) Calcium Level 8.2 MG/DL (8.5-10.1) Height (Feet): 5 Height (Inches): 1.00 Weight (Pounds): 150 Objective Gen: alert, GCS 15, non-toxic, obese, Chronically Ill Head: normocephalic Eyes: bilateral eye PERRL ENT: normal ENT inspection, normal voice Neck: limited range of motion Respiratory: lungs clear, normal breath sounds Cardiovascular: normal inspection, regular rate, rhythm Gastrointestinal: normal inspection, normal bowel sounds,nt, nd Neurologic: normal inspection, alert, oriented x3 Nicholas Coffey MD March 10, 2019 17:39
--- NOTE | 2019-03-10 19:20 | NUR ---
HAND-OFF: Report given to ASHOK Vergara.
--- NOTE | 2019-03-10 19:24 | NUR ---
NURSE NOTES: Pt received in bed with guests at bedside, able to make needs known, call light within reach, no c/o pain or signs of distress, endorsed that patient is still refusing spinal tap and bone marrow biopsy, will continue to monitor.
--- NOTE | 2019-03-10 20:34 | Infectious Diseases Prog Note ---
Assessment/Plan Assessment/Plan Assessment: Febrile illness (not currently febrile)- now severe thrombocytopenia - ?Dengue LE weakness- r/o GBS, r/o ZIka, dengue (given recent travel to [facility]) -MRI brain wo: Abnormal T2 hyperintense signal within cerebral sulci bilaterally predominating in the posterior part of the cerebrum. This is nonspecific, but the main concern would be an occult subarachnoid bleed. Differential diagnosis includes meningitis, leptomeningeal carcinomatosis or thickening, artifact related to elevated blood pool to CSF ratio. There is no evidence of diffusion restriction i.e. acute stroke to account for the finding. Further evaluation with gadolinium-enhanced MRI is recommended. Clinical correlation also needed. Noncontrast CT of the head is also recommended.Sinus disease. Right mastoiditis. -MRI t/ L spine w/wo: No evidence of compression of the spinal cord or cauda equina. No intrinsic cord abnormality, edema or other neuropathy identified. Moderate degenerative changes of the mid to lower lumbar spine characterized by degenerative disc disease and facet arthropathy. Disease is most severe at L4-5 which shows evidence of central spinal stenosis and narrowing of the lateral recess and moderate right foraminal stenosis. L3-4 Central stenosis also demonstrated. Other incidental findings as above. -CT: c/abd/p w/: No acute findings identified within the chest abdomen or pelvis. Large hiatal hernia. Cardiomegaly and arterial vascular disease. Moderate fatty liver. Prominence of the urinary bladder wall. Correlate for cystitis. Villalobos catheter in good position.Degenerative changes of the spine. Probable right renal cyst -CXR: No acute disease -Bcx NTD -influenza sc, HIV sc, RPR neg Severe thrombocytopenia Elevated AST Mild elevation CPK Chronic LE weakness- prior workup many years ago but unknown results- able to ambulate w/ walker- but now weakness worse, moving fingers but not able to raise legs Plan: -Will d/c empiric IV Vancomycin #2 given thrombocytopenia and low suspicion for acute bacterial meningitis -Continue Ceftriaxone #2 for now pending LP -will d/c if CSF not consistent with bacterial meningitis which i have low suspicion for -03/07 SP Cefepime #1 -Lumbar puncture- patient currently refusing LP- I explained why it is needed and risks and benefits. Daughter will talk with patient in more detail to see if patient will be agreeable with procedure. -CSF fluid analysis, culture, VDRL, Cocci, CrAg, Dengue, Zika, [place] PCR , oligoclonal bands, MBP, WNV ab -f/u HIV VL, Cocci ab, CrAg, Zika/Dengue/[place] serology, WNV ab serum -f/u cx -Monitor CBC/CMP, temperatures -Neuro eval: consider repeating MRI brain w contrast Subjective Allergies: Coded Allergies: No Known Allergies (Unverified , 03/07/19) Subjective Afebrile Objective Vital Signs Last 24 Hour Vital Signs Date Time Temp Pulse Resp B/P (MAP) Pulse Ox O2 Delivery O2 Flow Rate FiO2 03/10/19 16:00 97.8 82 20 125/73 (90) 97 03/10/19 12:00 97.8 88 20 127/71 (89) 95 03/10/19 08:49 Room Air 03/10/19 08:20 80 20 97 Room Air 21 03/10/19 08:00 97.3 81 20 111/67 (82) 100 03/10/19 04:00 98.6 86 20 109/72 (84) 99 03/10/19 01:00 99 140/72 (94) 99 03/10/19 00:00 98.0 90 18 92/56 (68) 95 03/09/19 21:00 Room Air 03/09/19 21:00 86 128/79 (95) Height (Feet): 5 Height (Inches): 1.00 Weight (Pounds): 150 HEENT: atraumatic Respiratory/Chest: normal breath sounds Cardiovascular: regularly irregular Abdomen: no organomegaly Microbiology Date/Time Source Procedure Growth Status 03/07/19 22:05 Nasopharynx - Final Complete 03/07/19 22:05 Nasopharynx - Final Complete Laboratory Tests Test 03/10/19 07:51 White Blood Count 8.5 K/UL (4.8-10.8) Red Blood Count 3.89 M/UL (4.20-5.40) L Hemoglobin 11.4 G/DL (12.0-16.0) L Hematocrit 34.4 % (37.0-47.0) L Mean Corpuscular Volume 89 FL (80-99) Mean Corpuscular Hemoglobin 29.5 PG (27.0-31.0) Mean Corpuscular Hemoglobin Concent 33.3 G/DL (32.0-36.0) Red Cell Distribution Width 12.9 % (11.6-14.8) Platelet Count 20 K/UL (150-450) L Mean Platelet Volume 14.8 FL (6.5-10.1) H Neutrophils (%) (Auto) % (45.0-75.0) Lymphocytes (%) (Auto) % (20.0-45.0) Monocytes (%) (Auto) % (1.0-10.0) Eosinophils (%) (Auto) % (0.0-3.0) Basophils (%) (Auto) % (0.0-2.0) Differential Total Cells Counted 100 Neutrophils % (Manual) 25 % (45-75) L Lymphocytes % (Manual) 51 % (20-45) H Monocytes % (Manual) 21 % (1-10) H Eosinophils % (Manual) 1 % (0-3) Basophils % (Manual) 0 % (0-2) Band Neutrophils 2 % (0-8) Reactive Lymphocytes 1+ Platelet Estimate Decreased L Platelet Morphology Normal Hypochromasia 1+ Sodium Level 139 MMOL/L (136-145) Potassium Level 4.5 MMOL/L (3.5-5.1) Chloride Level 106 MMOL/L (98-107) Carbon Dioxide Level 26 MMOL/L (21-32) Anion Gap 7 mmol/L (5-15) Blood Urea Nitrogen 24 mg/dL (7-18) H Creatinine 0.7 MG/DL (0.55-1.30) Estimat Glomerular Filtration Rate mL/min (>60) Glucose Level 100 MG/DL (74-106) Calcium Level 8.2 MG/DL (8.5-10.1) L Current Medications Medications (Trade) Dose Ordered Sig/Lisette Route PRN Reason Start Time Stop Time Status Last Admin Dose Admin Acetaminophen (Tylenol) 650 mg Q4H PRN ORAL fever (temp>100.5F) 03/07/19 15:15 04/06/19 15:14 Albuterol/ Ipratropium (Albuterol/ Ipratropium) 3 ml Q4H PRN HHN Shortness of Breath 03/07/19 15:15 03/12/19 15:14 Ceftriaxone Sodium 2 gm/ Dextrose 55 ml @ 110 mls/hr Q24H IVPB 03/08/19 03:00 03/15/19 02:59 03/10/19 02:19 Gadobutrol (Gadavist) 7.5 mmol NOW PRN IV Radiology Procedure 03/08/19 23:15 03/12/19 23:14 Morphine Sulfate (Morphine Sulfate) 2 mg Q4H PRN IVP Moderate Pain (Pain Scale 4-6) 03/07/19 15:15 03/14/19 15:14 Nitroglycerin (Ntg) 0.4 mg Q5M PRN SL Prn Chest Pain 03/07/19 15:15 04/06/19 15:14 Ondansetron HCl (Zofran) 4 mg Q6H PRN IVP Nausea & Vomiting 03/07/19 15:15 04/06/19 15:14 03/08/19 16:07 Polyethylene Glycol (Miralax) 17 gm DAILYPRN PRN ORAL Constipation 03/07/19 15:15 04/06/19 15:14 Temazepam (Restoril) 15 mg HSPRN PRN ORAL Insomnia 03/07/19 20:00 03/14/19 19:59 Buck Soriano MD March 10, 2019 20:34
[2019-03-10 21:36] LABS: FERRITIN 1345 NG/ML (8-388)
--- NOTE | 2019-03-10 22:27 | Neurology Progress Note ---
Interim History Interim History ROS Limited/Unobtainable: No Complaints: LE Weakness Events: Awaiting MRI Brain w/wo contrast to be performed Interim History This visit was performed on March 10, [address] Brice Palafox. Review of Systems All Systems: reviewed and negative except above Objective Physical Exam Last Vital Signs Date Time Temp Pulse Resp B/P (MAP) Pulse Ox O2 Delivery O2 Flow Rate FiO2 03/10/19 21:00 Room Air 03/10/19 20:43 76 20 98 21 03/10/19 20:00 98.1 137/61 (86) Laboratory Tests Test 03/10/19 07:51 03/10/19 20:21 White Blood Count 8.5 K/UL (4.8-10.8) Red Blood Count 3.89 M/UL (4.20-5.40) L Hemoglobin 11.4 G/DL (12.0-16.0) L Hematocrit 34.4 % (37.0-47.0) L Mean Corpuscular Volume 89 FL (80-99) Mean Corpuscular Hemoglobin 29.5 PG (27.0-31.0) Mean Corpuscular Hemoglobin Concent 33.3 G/DL (32.0-36.0) Red Cell Distribution Width 12.9 % (11.6-14.8) Platelet Count 20 K/UL (150-450) L Mean Platelet Volume 14.8 FL (6.5-10.1) H Neutrophils (%) (Auto) % (45.0-75.0) Lymphocytes (%) (Auto) % (20.0-45.0) Monocytes (%) (Auto) % (1.0-10.0) Eosinophils (%) (Auto) % (0.0-3.0) Basophils (%) (Auto) % (0.0-2.0) Differential Total Cells Counted 100 Neutrophils % (Manual) 25 % (45-75) L Lymphocytes % (Manual) 51 % (20-45) H Monocytes % (Manual) 21 % (1-10) H Eosinophils % (Manual) 1 % (0-3) Basophils % (Manual) 0 % (0-2) Band Neutrophils 2 % (0-8) Reactive Lymphocytes 1+ Platelet Estimate Decreased L Platelet Morphology Normal Hypochromasia 1+ Sodium Level 139 MMOL/L (136-145) Potassium Level 4.5 MMOL/L (3.5-5.1) Chloride Level 106 MMOL/L (98-107) Carbon Dioxide Level 26 MMOL/L (21-32) Anion Gap 7 mmol/L (5-15) Blood Urea Nitrogen 24 mg/dL (7-18) H Creatinine 0.7 MG/DL (0.55-1.30) Estimat Glomerular Filtration Rate mL/min (>60) Glucose Level 100 MG/DL (74-106) Calcium Level 8.2 MG/DL (8.5-10.1) L Fibrinogen 130 mg/dL (200-400) *L Iron Level Pending Unsaturated Iron Binding Pending Ferritin 1345 NG/ML (8-388) H Vitamin B12 Level Pending Folate Pending Thyroid Stimulating Hormone (TSH) 9.146 uiU/mL (0.358-3.740) Immunoglobulin G Pending Neurologic Exam Mental Status: awake, alert, oriented x4, normal cognition, good mathematical skills, normal recent memory, normal remote memory, preserved visuospatial function Speech: normal speech, no dysarthia Language: normal language, no aphasia Cranial Nerve II: fundus normal, visual noriega, no papilledema Cranial Nerves III, IV, : PERRLA, EOMI, pupils Cranial Nerve V: normal facial sensations, temporales function normal, masseters function normal, pterygoids function normal Cranial Nerve VII: no facial asymmetry, normal facial expressions Cranial Nerve VIII: normal hearing, no nystagmus Cranial Nerve IX: normal palate elevation, gag response Cranial Nerve X: no voice hoarseness Cranial Nerve XI: SCM symmetric, trapezii function normal Cranial Nerve XII: tongue midline, no tongue atrophy/fasciculations Motor System: normal muscle tone, no involuntary movement, no muscle wasting Sensory: normal pinprick, normal light touch Coordination: normal finger to nose bilaterally Deep Tendon Reflexes: 1+ bicep (L), 1+ bicep (R), 1+ tricep (L), 1+ tricep (R) , 1+ brachioradialis (L), 1+ brachioradialis (R), 1+ knee (L), 1+ knee (R), 1+ ankle (L), 1+ ankle (R) Reflexes: flexor plantar (L), flexor plantar (R); extensor plantar (L), extensor plantar (R) Objective LLE 2/5 RLE 3/5 weakest at hip flexors UEs full strength and AG FC x 4 Non focal on exam with generalized weakness. No facial weakness or tongue deviationSpeech is in Uzbek but all normal. Impression/Recommendations Problems: (1) Thrombocytopenia Assessment & Plan: Heme/ Onc workup (2) Dehydration (3) Urinary tract infection (4) Bilateral leg weakness Assessment & Plan: MRI thoracic spine: Bone marrow signal and alignment are normal. The height of the vertebral bodies appears normal. There is no evidence of a compression fracture. There is no evidence of a disc herniation with normal appearance of the intervertebral discs. The spinal canal is widely patent at all levels within the thoracic spine. The spinal cord is normal in appearance. There is no cord edema, mass or myelomalacia. No epidural collection or other abnormal fluid collection identified. Mild hypertrophic spurring involving the thoracic facets noted at multiple levels. There is no evidence of significant foraminal stenosis or cord compression. No abnormal enhancement is identified. T7 vertebral hemangioma noted. There is a large hiatal hernia. Trace basilar pleural effusions are present. MRI lumbar spine: Bone marrow signal is normal. There is no evidence of bone marrow replacement, contusion or edema, fracture. The visualized part of the distal spinal cord is normal in appearance. Conus medullaris is seen at about lower part of L1 vertebra. There is no abnormal cord or nerve root enhancement. There are vitl-wi-zwsijchh degenerative changes which will be described. The L1-2 disc is normal in appearance. There is no stenosis of the canal or foramen. L2-3 shows mild hypertrophy of the lumbar facets. No central or foraminal stenosis demonstrated. L3-4 shows mild central stenosis and narrowing of the lateral recesses due to facet arthropathy. No foraminal stenosis appreciated. L4-5 demonstrates mild central stenosis, narrowing of the lateral recess due to facet arthropathy and redundancy of ligamentum flavum. There is also mild concentric disc bulge associated moderate narrowing of the intervertebral disc and desiccation of the disc with anterolisthesis mild in degree at this level. Moderate right foraminal stenosis noted. L5-S1: The disc is normal in appearance. There is no central stenosis. Facet arthropathy noted. No significant foraminal stenosis appreciated. IMPRESSION: No evidence of compression of the spinal cord or cauda equina. No intrinsic cord abnormality, edema or other neuropathy identified. Moderate degenerative changes of the mid to lower lumbar spine characterized by degenerative disc disease and facet arthropathy. Disease is most severe at L4-5 which shows evidence of central spinal stenosis and narrowing of the lateral recess and moderate right foraminal stenosis. L3-4 Central stenosis also demonstrated. Other incidental findings as above. Please refer to the CT chest abdomen pelvis report as well No clear evidence for weakness demonstrated in patient clinically given normal cord signal on MRI The T2 FLAIR sequence demonstrates some areas of sulcal hyperintensity particularlyin the posterior aspects of both cerebral hemispheres but also within the rightfrontal region. The main concern is that there is an occult subarachnoid bleed. There is no mass effect or edema within the brain. The ventricles appear normal.Basal cisterns are normal. Flow voids are seen within the superior sagittal sinus,visualized part of the basilar artery and both ICA. There is no abnormal intra-axialor extra-axial fluid collection. As stated previously there is no diffusionrestriction. Empty sella is noted. There is a T2 hyperintense signal within the rightmastoid bone and some mucosal thickening within paranasal sinuses. IMPRESSION: Abnormal T2 hyperintense signal within cerebral sulci bilaterally predominating inthe posterior part of the cerebrum. T his is nonspecific, but the main concern wouldbe an occult subarachnoid bleed. Differential diagnosis includes meningitis,leptomeningeal carcinomatosis or thickening, artifact related to elevated blood poolto CSF ratio. There is no evidence of diffusion restriction i.e. acute stroke toaccount for the finding. Further evaluation with gadolinium-enhanced MRI isrecommended. Clinical correlation also needed. Noncontrast CT of the head is alsorecommended. Sinus disease. Right mastoiditis. (5) Febrile illness, acute Assessment & Plan: Consider LP if patient becomes febrile, especially without evidence of peripheral leukocytosis. DDX Encephalitis / Meningitis vs Ischemic Stroke Status: stable, tolerating diet, unchanged Recommendations MRI Brain w/wo contrast ordered - awaiting completion Abx as per ID Normothermia Normoglycemia with ISS HgB>8 Replace/ Replete lytes Neuro Obs Q4 hrs Continue to track trend CBC/ CMP Check TSH Na 135-145 Consider LP depending upon results of MRI w/ contrast Karmen Mena N.P. March 10, 2019 22:27
[2019-03-10 22:53] LABS: % IRON SATURATION 42 % (15-50); IRON 106 ug/dL (50-175); TOTAL IRON BINDING CAPACITY 253 ug/dL (250-450)
--- NOTE | 2019-03-10 23:30 | NUR ---
NURSE NOTES: Called Dr. Coffey's answering service and left 3 messages regarding pt Fibrinogen result of 130, did not receive a callback. Charge nurse Jessica and [employer] both made aware.
[2019-03-11] VITALS: BP 127/73
[2019-03-11] MEDS: cefTRIAXone 2 GM in D5W 55 ML IVPB SCH (02:15)
[2019-03-11 04:00] VITALS: BP 119/74
--- NOTE | 2019-03-11 07:11 | NUR ---
HAND-OFF: Report given to ASHOK Romero.
--- NOTE | 2019-03-11 07:14 | NUR ---
NURSE NOTES: pt in bed with no sob nor in any form of distress noted. breathing regular and unlabored. afebrile. bed in lowest position. call light within reach at all time. will continue to monitor
[2019-03-11 08:00] VITALS: BP 129/67
[2019-03-11 08:23] LABS: HEMATOCRIT 28.2 % (37.0-47.0); HEMOGLOBIN 9.5 G/DL (12.0-16.0); MEAN CORPUSCULAR VOLUME 88 FL (80-99); PLATELET COUNT 21 K/UL (150-450); RED CELL DISTRIBUTION WIDTH 12.9 % (11.6-14.8); WHITE BLOOD COUNT 5.8 K/UL (4.8-10.8)
--- NOTE | 2019-03-11 08:23 | General Progress Note ---
Assessment/Plan Problem List: (1) Thrombocytopenia ICD Codes: D69.6 - Thrombocytopenia, unspecified SNOMED: 241066721 (2) Urinary tract infection ICD Codes: N39.0 - Urinary tract infection, site not specified SNOMED: 43118399 (3) Bilateral leg weakness ICD Codes: R29.898 - Other symptoms and signs involving the musculoskeletal system SNOMED: 8156775 (4) Febrile illness, acute ICD Codes: R50.9 - Fever, unspecified SNOMED: 245891003 (5) Dehydration ICD Codes: E86.0 - Dehydration SNOMED: 78666627 Status: stable, progressing Assessment/Plan: pt diet abx ivf heme eval cbc bmp am [facility] endo eval aru eval Subjective Constitutional: Reports: weakness Allergies: Coded Allergies: No Known Allergies (Unverified , 03/07/19) All Systems: reviewed and negative except above Subjective eating calm Objective Last 24 Hour Vital Signs Date Time Temp Pulse Resp B/P (MAP) Pulse Ox O2 Delivery O2 Flow Rate FiO2 03/11/19 07:01 70 18 97 Room Air 21 03/11/19 04:00 98.6 77 18 119/74 (89) 98 03/11/19 00:00 98.4 92 18 127/73 (91) 99 03/10/19 21:00 Room Air 03/10/19 20:43 76 20 98 Room Air 21 03/10/19 20:00 98.1 91 18 137/61 (86) 97 03/10/19 16:00 97.8 82 20 125/73 (90) 97 03/10/19 12:00 97.8 88 20 127/71 (89) 95 03/10/19 08:49 Room Air Intake and Output 03/10/19 03/11/19 19:00 07:00 Intake Total 1160 ml 110 ml Balance 1160 ml 110 ml Intake Oral 1160 ml IV Total 110 ml # Voids 8 2 Laboratory Tests 03/10/19 20:21: Fibrinogen 130*L, Iron Level 106, Total Iron Binding Capacity 253, Percent Iron Saturation 42, Unsaturated Iron Binding 147, Ferritin 1345H, Vitamin B12 Level 1392H, Folate 10.9, Thyroid Stimulating Hormone (TSH) 9.146H, Immunoglobulin G [ Pending] 03/11/19 06:45: White Blood Count [Pending], Red Blood Count [Pending], Hemoglobin [Pending], Hematocrit [Pending], Mean Corpuscular Volume [Pending], Mean Corpuscular Hemoglobin [Pending], Mean Corpuscular Hemoglobin Concent [Pending], Red Cell Distribution Width [Pending], Platelet Count [Pending], Mean Platelet Volume [ Pending], Neutrophils (%) (Auto) [Pending], Lymphocytes (%) (Auto) [Pending], Monocytes (%) (Auto) [Pending], Eosinophils (%) (Auto) [Pending], Basophils (%) (Auto) [Pending], Sodium Level [Pending], Potassium Level [Pending], Chloride Level [Pending], Carbon Dioxide Level [Pending], Blood Urea Nitrogen [Pending], Creatinine [Pending], Estimat Glomerular Filtration Rate [Pending], Glucose Level [Pending], Calcium Level [Pending] Height (Feet): 5 Height (Inches): 1.00 Weight (Pounds): 150 General Appearance: lethargic EENT: normal ENT inspection Neck: normal alignment Cardiovascular: normal peripheral pulses, normal rate, regular rhythm Respiratory/Chest: chest wall non-tender, lungs clear, normal breath sounds Abdomen: normal bowel sounds, non tender, soft Extremities: normal inspection Edema: no edema noted Arm (L), no edema noted Arm (R), no edema noted Leg (L), no edema noted Leg (R), no edema noted Pedal (L), no edema noted Pedal (R), no edema noted Generalized Neurologic: motor weakness Skin: normal pigmentation, warm/dry Jason Castanon DO March 11, 2019 08:23
[2019-03-11 08:46] LABS: ANION GAP 6 mmol/L (5-15); BLOOD UREA NITROGEN 16 mg/dL (7-18); CALCIUM 8.1 MG/DL (8.5-10.1); CARBON DIOXIDE 28 MMOL/L (21-32); CHLORIDE 107 MMOL/L (98-107); CREATININE 0.6 MG/DL (0.55-1.30); POTASSIUM 3.9 MMOL/L (3.5-5.1); SODIUM 141 MMOL/L (136-145)
[2019-03-11 12:00] VITALS: BP 120/66
--- NOTE | 2019-03-11 13:13 | Hematology/Onc Progress Note ---
Assessment/Plan Assessment/Plan Assessment and Recs: # Thrombocytopenia - potential causes multifactorial, evaluate liver and viral etiologies to begin, also could be related to underlying medications patient has received such as heparin (HAS BEEN DISCONTINUED), also at this time on abx, cefe and vanc, monitor abx closely, ALSO SMEAR reviewed --> Hep panel and HIV are negative --> CT of the a/p reviewed,and no cirrhosis/hsm reviewed, no predominant LAD, lymphadenopathy noted, no mass --> Peripheral smear has been reviewed, no blasts noted, 1% myelocytes, 1% metamyelocytes noted as well --> abx and other meds have been reviewed --> Transfuse if Plt < 20k and fever, or if Plt < 10k without fever --> heparin has been discontinued sq --> HIT Ab has been ordered --> A BONE MARROW BIOPSY has been ordered to r/o malignancy/leukemia (for thrombocytopenia) dw rn --> DIC Panel including fibrinogen reviewed # Anemia of chronic disease due to underlying chronic medical issues, multifactorial --> CONSIDER if hgb lower w/u --> No evidence of hemolysis is noted, peripheral smear has been reviewed. --> Hgb goal >7. Transfuse prn. --> Epogen or iron at this time is not particularly indicated --> ferritin is 1345 # Urinary tract infection --> blood and urine culture pending --> on abx as per id, vanc/cefepime # Dehydration --> IVF has been started # Lower extremity weakness Differential diagnosis include was not limited to Guillain-Pike v uti v generalized weakness --> LP considering as per neuro The timing of this note does not necessarily reflect the time of the patient was seen. Greatly appreciate consultation! Subjective Constitutional: Denies: no symptoms, chills, fever, malaise, weakness, other HEENT: Denies: no symptoms, eye pain, blurred vision, tearing, double vision, ear pain, ear discharge, nose pain, nose congestion, throat pain, throat swelling, mouth pain, mouth swelling, other Cardiovascular: Denies: no symptoms, chest pain, edema, irregular heart rate, lightheadedness, palpitations, syncope, other Respiratory: Denies: no symptoms, cough, shortness of breath, SOB with excertion, SOB at rest, sputum, wheezing, other Neurologic/Psychiatric: Denies: no symptoms, anxiety, depressed, emotional problems, headache, numbness, paresthesia, pre-existing deficit, seizure, tingling, tremors, weakness, other Endocrine: Denies: no symptoms, excessive sweating, flushing, intolerance to cold, intolerance to heat, increased hunger, increased thirst, increased urine, unexplained weight gain, unexplained weight loss, other Hematologic/Lymphatic: Denies: no symptoms, anemia, easy bleeding, easy bruising, adenopathy, other Allergies: Coded Allergies: No Known Allergies (Unverified , 03/07/19) Subjective 03/10: platelets are stable, no events, no fevers noted, have placed orders for bone marrow biopsy 03/11: discussed her case with granddaughter, have placed biopsy order for tomorrow and dw path Objective Objective Current Medications Medications (Trade) Dose Ordered Sig/Lisette Route PRN Reason Start Time Stop Time Status Last Admin Dose Admin Acetaminophen (Tylenol) 650 mg Q4H PRN ORAL fever (temp>100.5F) 03/07/19 15:15 04/06/19 15:14 Albuterol/ Ipratropium (Albuterol/ Ipratropium) 3 ml Q4H PRN HHN Shortness of Breath 03/07/19 15:15 03/12/19 15:14 Ceftriaxone Sodium 2 gm/ Dextrose 55 ml @ 110 mls/hr Q24H IVPB 03/08/19 03:00 03/15/19 02:59 03/11/19 02:15 Gadobutrol (Gadavist) 7.5 mmol NOW PRN IV Radiology Procedure 03/08/19 23:15 03/12/19 23:14 Morphine Sulfate (Morphine Sulfate) 2 mg Q4H PRN IVP Moderate Pain (Pain Scale 4-6) 03/07/19 15:15 03/14/19 15:14 Nitroglycerin (Ntg) 0.4 mg Q5M PRN SL Prn Chest Pain 03/07/19 15:15 04/06/19 15:14 Ondansetron HCl (Zofran) 4 mg Q6H PRN IVP Nausea & Vomiting 03/07/19 15:15 04/06/19 15:14 03/08/19 16:07 Polyethylene Glycol (Miralax) 17 gm DAILYPRN PRN ORAL Constipation 03/07/19 15:15 04/06/19 15:14 Temazepam (Restoril) 15 mg HSPRN PRN ORAL Insomnia 03/07/19 20:00 03/14/19 19:59 Last 24 Hour Vital Signs Date Time Temp Pulse Resp B/P (MAP) Pulse Ox O2 Delivery O2 Flow Rate FiO2 03/11/19 08:54 Room Air 03/11/19 08:00 97.6 84 18 129/67 (87) 99 03/11/19 07:01 70 18 97 Room Air 21 03/11/19 04:00 98.6 77 18 119/74 (89) 98 03/11/19 00:00 98.4 92 18 127/73 (91) 99 03/10/19 21:00 Room Air 03/10/19 20:43 76 20 98 Room Air 21 03/10/19 20:00 98.1 91 18 137/61 (86) 97 03/10/19 16:00 97.8 82 20 125/73 (90) 97 03/10/19 12:00 97.8 88 20 127/71 (89) 95 03/10/19 08:49 Room Air 03/10/19 08:20 80 20 97 Room Air 21 03/10/19 08:00 97.3 81 20 111/67 (82) 100 03/10/19 04:00 98.6 86 20 109/72 (84) 99 03/10/19 01:00 99 140/72 (94) 99 03/10/19 00:00 98.0 90 18 92/56 (68) 95 03/09/19 21:00 Room Air 03/09/19 21:00 86 128/79 (95) 03/09/19 20:33 78 20 97 Room Air 21 03/09/19 20:00 98.8 98 18 102/57 (72) 95 03/09/19 16:00 97.1 82 20 130/76 (94) 100 Intake and Output 03/10/19 03/11/19 19:00 07:00 Intake Total 1160 ml 110 ml Balance 1160 ml 110 ml Intake Oral 1160 ml IV Total 110 ml # Voids 8 2 Labs Test 03/08/19 13:40 03/09/19 06:30 03/10/19 07:51 03/10/19 20:21 Reticulocyte Count 0.4 % (0.5-2.0) Prothrombin Time 11.1 SEC (9.30-11.50) Prothromb Time International Ratio 1.1 (0.9-1.1) Fibrinogen 167 mg/dL (200-400) 130 mg/dL (200-400) Lactate Dehydrogenase 859 U/L (81-234) Hepatitis A IgM Antibody Negative (Negative) Hepatitis B Surface Antigen Negative (Negative) Hepatitis B Core IgM Antibody Negative (Negative) Hepatitis C Antibody 0.1 s/co ratio (0.0-0.9) White Blood Count 13.2 K/UL (4.8-10.8) 8.5 K/UL (4.8-10.8) Red Blood Count 4.01 M/UL (4.20-5.40) 3.89 M/UL (4.20-5.40) Hemoglobin 12.1 G/DL (12.0-16.0) 11.4 G/DL (12.0-16.0) Hematocrit 35.9 % (37.0-47.0) 34.4 % (37.0-47.0) Mean Corpuscular Volume 90 FL (80-99) 89 FL (80-99) Mean Corpuscular Hemoglobin 30.2 PG (27.0-31.0) 29.5 PG (27.0-31.0) Mean Corpuscular Hemoglobin Concent 33.7 G/DL (32.0-36.0) 33.3 G/DL (32.0-36.0) Red Cell Distribution Width 12.9 % (11.6-14.8) 12.9 % (11.6-14.8) Platelet Count 15 K/UL (150-450) 20 K/UL (150-450) Mean Platelet Volume 11.1 FL (6.5-10.1) 14.8 FL (6.5-10.1) Neutrophils (%) (Auto) % (45.0-75.0) % (45.0-75.0) Lymphocytes (%) (Auto) % (20.0-45.0) % (20.0-45.0) Monocytes (%) (Auto) % (1.0-10.0) % (1.0-10.0) Eosinophils (%) (Auto) % (0.0-3.0) % (0.0-3.0) Basophils (%) (Auto) % (0.0-2.0) % (0.0-2.0) Differential Total Cells Counted 100 100 Neutrophils % (Manual) 40 % (45-75) 25 % (45-75) Lymphocytes % (Manual) 27 % (20-45) 51 % (20-45) Monocytes % (Manual) 22 % (1-10) 21 % (1-10) Eosinophils % (Manual) 0 % (0-3) 1 % (0-3) Basophils % (Manual) 0 % (0-2) 0 % (0-2) Metamyelocytes % 1 % (0-0) Myelocytes % 1 % (0-0) Band Neutrophils 9 % (0-8) 2 % (0-8) Reactive Lymphocytes 1+ 1+ Platelet Estimate Decreased Decreased Platelet Morphology Normal Normal Red Blood Cell Morphology Normal Sodium Level 140 MMOL/L (136-145) 139 MMOL/L (136-145) Potassium Level 4.2 MMOL/L (3.5-5.1) 4.5 MMOL/L (3.5-5.1) Chloride Level 105 MMOL/L (98-107) 106 MMOL/L (98-107) Carbon Dioxide Level 25 MMOL/L (21-32) 26 MMOL/L (21-32) Anion Gap 10 mmol/L (5-15) 7 mmol/L (5-15) Blood Urea Nitrogen 20 mg/dL (7-18) 24 mg/dL (7-18) Creatinine 0.7 MG/DL (0.55-1.30) 0.7 MG/DL (0.55-1.30) Estimat Glomerular Filtration Rate mL/min (>60) mL/min (>60) Glucose Level 96 MG/DL (74-106) 100 MG/DL (74-106) Hemoglobin A1c 6.4 % (4.3-6.0) Calcium Level 8.0 MG/DL (8.5-10.1) 8.2 MG/DL (8.5-10.1) Hypochromasia 1+ Iron Level 106 ug/dL (50-175) Total Iron Binding Capacity 253 ug/dL (250-450) Percent Iron Saturation 42 % (15-50) Unsaturated Iron Binding 147 ug/dL (112-346) Ferritin 1345 NG/ML (8-388) Vitamin B12 Level 1392 PG/ML (193-986) Folate 10.9 NG/ML (8.6-58.9) Thyroid Stimulating Hormone (TSH) 9.146 uiU/mL (0.358-3.740) Test 03/11/19 06:45 White Blood Count 5.8 K/UL (4.8-10.8) Red Blood Count 3.20 M/UL (4.20-5.40) Hemoglobin 9.5 G/DL (12.0-16.0) Hematocrit 28.2 % (37.0-47.0) Mean Corpuscular Volume 88 FL (80-99) Mean Corpuscular Hemoglobin 29.9 PG (27.0-31.0) Mean Corpuscular Hemoglobin Concent 33.9 G/DL (32.0-36.0) Red Cell Distribution Width 12.9 % (11.6-14.8) Platelet Count 21 K/UL (150-450) Mean Platelet Volume 10.7 FL (6.5-10.1) Neutrophils (%) (Auto) % (45.0-75.0) Lymphocytes (%) (Auto) % (20.0-45.0) Monocytes (%) (Auto) % (1.0-10.0) Eosinophils (%) (Auto) % (0.0-3.0) Basophils (%) (Auto) % (0.0-2.0) Differential Total Cells Counted 100 Neutrophils % (Manual) 37 % (45-75) Lymphocytes % (Manual) 39 % (20-45) Monocytes % (Manual) 22 % (1-10) Eosinophils % (Manual) 2 % (0-3) Basophils % (Manual) 0 % (0-2) Band Neutrophils 0 % (0-8) Reactive Lymphocytes Occasional Platelet Estimate Decreased Platelet Morphology Normal Polychromasia 1+ Sodium Level 141 MMOL/L (136-145) Potassium Level 3.9 MMOL/L (3.5-5.1) Chloride Level 107 MMOL/L (98-107) Carbon Dioxide Level 28 MMOL/L (21-32) Anion Gap 6 mmol/L (5-15) Blood Urea Nitrogen 16 mg/dL (7-18) Creatinine 0.6 MG/DL (0.55-1.30) Estimat Glomerular Filtration Rate mL/min (>60) Glucose Level 95 MG/DL (74-106) Calcium Level 8.1 MG/DL (8.5-10.1) Height (Feet): 5 Height (Inches): 1.00 Weight (Pounds): 150 Objective Gen: alert, GCS 15, non-toxic, obese, Chronically Ill Head: normocephalic Eyes: bilateral eye PERRL ENT: normal ENT inspection, normal voice Neck: limited range of motion Respiratory: lungs clear, normal breath sounds Cardiovascular: normal inspection, regular rate, rhythm Gastrointestinal: normal inspection, normal bowel sounds,nt, nd Neurologic: normal inspection, alert, oriented x3 Nicholas Coffey MD March 11, 2019 13:13
--- NOTE | 2019-03-11 14:06 | NUR ---
NURSE NOTES: spoke with Kalyan (mail technician ) and informed him that pt signed consent for spinal tap and it is okay to proceed the procedure. As of today, they cannot give any answer what time will be done but will rely msg to remote sensing technician who will be working tomorrow morning.
[2019-03-11 15:38] VITALS: BP 138/69
--- NOTE | 2019-03-11 15:59 | Pulmonology Progress Note ---
Assessment/Plan Problems: (1) Febrile illness, acute (2) Recent foreign travel (3) Bilateral leg weakness Assessment/Plan doing better afebrile now f/u neuro recommendation check cultures, blood cultures are negative so far. pt/ot might need placement. a Subjective ROS Limited/Unobtainable: No Constitutional: Reports: no symptoms HEENT: Repors: no symptoms Respiratory: Reports: no symptoms Allergies: Coded Allergies: No Known Allergies (Unverified , 03/07/19) Objective Last 24 Hour Vital Signs Date Time Temp Pulse Resp B/P (MAP) Pulse Ox O2 Delivery O2 Flow Rate FiO2 03/11/19 15:38 98.0 79 18 138/69 (92) 97 03/11/19 12:00 98.0 82 18 120/66 (84) 98 03/11/19 08:54 Room Air 03/11/19 08:00 97.6 84 18 129/67 (87) 99 03/11/19 07:01 70 18 97 Room Air 21 03/11/19 04:00 98.6 77 18 119/74 (89) 98 03/11/19 00:00 98.4 92 18 127/73 (91) 99 03/10/19 21:00 Room Air 03/10/19 20:43 76 20 98 Room Air 21 03/10/19 20:00 98.1 91 18 137/61 (86) 97 03/10/19 16:00 97.8 82 20 125/73 (90) 97 Intake and Output 03/10/19 03/11/19 18:59 06:59 Intake Total 1160 ml 110 ml Balance 1160 ml 110 ml Intake Oral 1160 ml IV Total 110 ml # Voids 8 2 Objective HEENT: normocephalic, atraumatic Respiratory/Chest: chest wall non-tender, lungs clear Cardiovascular: normal peripheral pulses, normal rate Abdomen: normal bowel sounds, no organomegaly Extremities: no cyanosis Skin: no lesions Laboratory Tests 03/10/19 20:21: Fibrinogen 130*L, Iron Level 106, Total Iron Binding Capacity 253, Percent Iron Saturation 42, Unsaturated Iron Binding 147, Ferritin 1345H, Vitamin B12 Level 1392H, Folate 10.9, Thyroid Stimulating Hormone (TSH) 9.146H, Immunoglobulin G [ Pending] 03/11/19 06:45: Thyroid Stimulating Hormone (TSH) 8.613H, White Blood Count 5.8, Red Blood Count 3.20L, Hemoglobin 9.5L, Hematocrit 28.2L, Mean Corpuscular Volume 88, Mean Corpuscular Hemoglobin 29.9, Mean Corpuscular Hemoglobin Concent 33.9, Red Cell Distribution Width 12.9, Platelet Count 21L, Mean Platelet Volume 10.7H, Neutrophils (%) (Auto) , Lymphocytes (%) (Auto) , Monocytes (%) (Auto) , Eosinophils (%) (Auto) , Basophils (%) (Auto) , Differential Total Cells Counted 100, Neutrophils % (Manual) 37L, Lymphocytes % (Manual) 39, Monocytes % (Manual) 22H, Eosinophils % (Manual) 2, Basophils % (Manual) 0, Band Neutrophils 0, Reactive Lymphocytes Occasional, Platelet Estimate DecreasedL, Platelet Morphology Normal, Polychromasia 1+, Sodium Level 141, Potassium Level 3.9, Chloride Level 107, Carbon Dioxide Level 28, Anion Gap 6, Blood Urea Nitrogen 16, Creatinine 0.6, Estimat Glomerular Filtration Rate , Glucose Level 95, Calcium Level 8.1L, Free Thyroxine 1.59H Current Medications Medications (Trade) Dose Ordered Sig/Lisette Route PRN Reason Start Time Stop Time Status Last Admin Dose Admin Acetaminophen (Tylenol) 650 mg Q4H PRN ORAL fever (temp>100.5F) 03/07/19 15:15 04/06/19 15:14 Albuterol/ Ipratropium (Albuterol/ Ipratropium) 3 ml Q4H PRN HHN Shortness of Breath 03/07/19 15:15 03/12/19 15:14 Ceftriaxone Sodium 2 gm/ Dextrose 55 ml @ 110 mls/hr Q24H IVPB 03/08/19 03:00 03/15/19 02:59 03/11/19 02:15 Gadobutrol (Gadavist) 7.5 mmol NOW PRN IV Radiology Procedure 03/08/19 23:15 03/12/19 23:14 Morphine Sulfate (Morphine Sulfate) 2 mg Q4H PRN IVP Moderate Pain (Pain Scale 4-6) 03/07/19 15:15 03/14/19 15:14 Nitroglycerin (Ntg) 0.4 mg Q5M PRN SL Prn Chest Pain 03/07/19 15:15 04/06/19 15:14 Ondansetron HCl (Zofran) 4 mg Q6H PRN IVP Nausea & Vomiting 03/07/19 15:15 04/06/19 15:14 03/08/19 16:07 Polyethylene Glycol (Miralax) 17 gm DAILYPRN PRN ORAL Constipation 03/07/19 15:15 04/06/19 15:14 Temazepam (Restoril) 15 mg HSPRN PRN ORAL Insomnia 03/07/19 20:00 03/14/19 19:59 Jenny Wilkerson MD March 11, 2019 15:59
--- NOTE | 2019-03-11 16:46 | NUR ---
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 THROMBOCYTOPENIA . DEHYDRATION VS: BP 119/74, P 70, T 97.6, RR 18, SpO2 97 Ca 8.1, RBC 3.20, H&H 9.5/28.2, Plt COUNT 21 IS:CEFTRIAXONE 55ml IVPB LORAZEPAM 1mg IV MED/SURG STATUS
--- NOTE | 2019-03-11 19:32 | NUR ---
HAND-OFF: Report given to ASOHK Seymour.
[2019-03-11 20:00] VITALS: BP 132/63
--- NOTE | 2019-03-11 20:21 | NUR ---
NURSE NOTES: Received report from ASHOK Beckwith. Patient [id number]. Georgian speaking. On room air, no signs of distress or labored breathing. IV intact, patent, and saline locked. Bed in lowest position with call light in reach. Will continue with plan of care.
--- NOTE | 2019-03-11 20:45 | Consultation ---
DATE OF CONSULTATION: 03/11/2019 ENDOCRINOLOGY CONSULTATION CONSULTING PHYSICIAN: Clifford Mora M.D. REFERRING PHYSICIAN: Jason Castanon D.O. REASON FOR CONSULTATION: Abnormal TSH. HISTORY OF PRESENT ILLNESS: This is a pleasant 83-year-old female without any significant past medical history except glaucoma, presented to the emergency department with chest pain and weakness of the lower extremities. The patient was getting progressively weak, admitted to the hospital for observation and treatment, recently back from [facility] and had 1 episode of fever over there. The TSH was obtained, which was elevated of 9. Therefore, Endocrinology was consulted. She has history of thyroid disease. PAST MEDICAL HISTORY: Glaucoma. PAST SURGICAL HISTORY: None. FAMILY HISTORY: A sister with thyroid disease. SOCIAL HISTORY: No smoking, alcohol, or drug use. ALLERGIES TO MEDICATIONS: None. MEDICATIONS: On home, eye drops for glaucoma. LABORATORY DATA: WBC 5, hemoglobin 9.5, hematocrit 28.2, platelets are 21,000. Sodium 140, potassium 3.9, chloride 107, bicarbonate 28, BUN 16, creatinine 0.6, glucose of 95. TSH of 9. REVIEW OF SYSTEMS: As per history of present illness. PHYSICAL EXAMINATION: VITAL SIGNS: Blood pressure 120/66, pulse 98, respiratory rate 18, temp 98. HEENT: Pupils equal and reactive to light and accommodation. Sclerae anicteric. NECK: No JVD. No thyromegaly. LUNGS: Clear. HEART: Regular rate and rhythm. ABDOMEN: Positive bowel sounds. EXTREMITIES: No clubbing, cyanosis, or edema. DIAGNOSIS: 1. Thrombocytopenia. 2. Abnormally elevated TSH with history of hypothyroidism. 3. Glaucoma. PLAN: The elevated TSH could be due to either true underlying primary hypothyroidism versus sick euthyroid. I will repeat a TSH and a free T4 and also check the thyroid peroxidase antibody to further investigate this. For the time being, I will not start the patient on any thyroid medication. I will follow the results of further advice. Thank you, Dr. Castanon, for the courtesy of this consultation. Clifford Mora M.D. DR: TEETEE JOB#: [id number] CC: ALFIE
--- NOTE | 2019-03-11 22:41 | Consultation ---
History of Present Illness General Date patient seen: March 11, 2019 Chief Complaint: Fever Present Illness Allergies: Coded Allergies: No Known Allergies (Unverified , 03/07/19) Medication History Miscellaneous Medications ["glaucoma eye drops"], (Reported) Patient History Healthcare decision maker Resuscitation status Full Code Advanced Directive on File Physical Exam Last 24 Hour Vital Signs Date Time Temp Pulse Resp B/P (MAP) Pulse Ox O2 Delivery O2 Flow Rate FiO2 03/11/19 21:02 84 16 94 Room Air 21 03/11/19 15:38 98.0 79 18 138/69 (92) 97 03/11/19 12:00 98.0 82 18 120/66 (84) 98 03/11/19 08:54 Room Air 03/11/19 08:00 97.6 84 18 129/67 (87) 99 03/11/19 07:01 70 18 97 Room Air 21 03/11/19 04:00 98.6 77 18 119/74 (89) 98 03/11/19 00:00 98.4 92 18 127/73 (91) 99 Intake and Output 03/10/19 03/11/19 19:00 07:00 Intake Total 1160 ml 110 ml Balance 1160 ml 110 ml Intake Oral 1160 ml IV Total 110 ml # Voids 8 2 Laboratory Tests Test 03/11/19 06:45 White Blood Count 5.8 K/UL (4.8-10.8) Red Blood Count 3.20 M/UL (4.20-5.40) L Hemoglobin 9.5 G/DL (12.0-16.0) L Hematocrit 28.2 % (37.0-47.0) L Mean Corpuscular Volume 88 FL (80-99) Mean Corpuscular Hemoglobin 29.9 PG (27.0-31.0) Mean Corpuscular Hemoglobin Concent 33.9 G/DL (32.0-36.0) Red Cell Distribution Width 12.9 % (11.6-14.8) Platelet Count 21 K/UL (150-450) L Mean Platelet Volume 10.7 FL (6.5-10.1) H Neutrophils (%) (Auto) % (45.0-75.0) Lymphocytes (%) (Auto) % (20.0-45.0) Monocytes (%) (Auto) % (1.0-10.0) Eosinophils (%) (Auto) % (0.0-3.0) Basophils (%) (Auto) % (0.0-2.0) Differential Total Cells Counted 100 Neutrophils % (Manual) 37 % (45-75) L Lymphocytes % (Manual) 39 % (20-45) Monocytes % (Manual) 22 % (1-10) H Eosinophils % (Manual) 2 % (0-3) Basophils % (Manual) 0 % (0-2) Band Neutrophils 0 % (0-8) Reactive Lymphocytes Occasional Platelet Estimate Decreased L Platelet Morphology Normal Polychromasia 1+ Sodium Level 141 MMOL/L (136-145) Potassium Level 3.9 MMOL/L (3.5-5.1) Chloride Level 107 MMOL/L (98-107) Carbon Dioxide Level 28 MMOL/L (21-32) Anion Gap 6 mmol/L (5-15) Blood Urea Nitrogen 16 mg/dL (7-18) Creatinine 0.6 MG/DL (0.55-1.30) Estimat Glomerular Filtration Rate mL/min (>60) Glucose Level 95 MG/DL (74-106) Calcium Level 8.1 MG/DL (8.5-10.1) L Thyroid Stimulating Hormone (TSH) 8.613 uiU/mL (0.358-3.740) Free Thyroxine 1.59 NG/DL (0.76-1.46) H Thyroid Peroxidase Antibodies Pending Height (Feet): 5 Height (Inches): 1.00 Weight (Pounds): 150 Medications Current Medications Medications (Trade) Dose Ordered Sig/Lisette Route PRN Reason Start Time Stop Time Status Last Admin Dose Admin Acetaminophen (Tylenol) 650 mg Q4H PRN ORAL fever (temp>100.5F) 03/07/19 15:15 04/06/19 15:14 Albuterol/ Ipratropium (Albuterol/ Ipratropium) 3 ml Q4H PRN HHN Shortness of Breath 03/07/19 15:15 03/12/19 15:14 Ceftriaxone Sodium 2 gm/ Dextrose 55 ml @ 110 mls/hr Q24H IVPB 03/08/19 03:00 03/15/19 02:59 03/11/19 02:15 Gadobutrol (Gadavist) 7.5 mmol NOW PRN IV Radiology Procedure 03/08/19 23:15 03/12/19 23:14 Morphine Sulfate (Morphine Sulfate) 2 mg Q4H PRN IVP Moderate Pain (Pain Scale 4-6) 03/07/19 15:15 03/14/19 15:14 Nitroglycerin (Ntg) 0.4 mg Q5M PRN SL Prn Chest Pain 03/07/19 15:15 04/06/19 15:14 Ondansetron HCl (Zofran) 4 mg Q6H PRN IVP Nausea & Vomiting 03/07/19 15:15 04/06/19 15:14 03/08/19 16:07 Polyethylene Glycol (Miralax) 17 gm DAILYPRN PRN ORAL Constipation 03/07/19 15:15 04/06/19 15:14 Temazepam (Restoril) 15 mg HSPRN PRN ORAL Insomnia 03/07/19 20:00 03/14/19 19:59 Assessment/Plan Problem List: (1) Thrombocytopenia Assessment & Plan: Heme/ Onc workup ICD Codes: D69.6 - Thrombocytopenia, unspecified SNOMED: 617184462 (2) Dehydration ICD Codes: E86.0 - Dehydration SNOMED: 16517655 (3) Urinary tract infection ICD Codes: N39.0 - Urinary tract infection, site not specified SNOMED: 38534486 (4) Bilateral leg weakness Assessment & Plan: MRI thoracic spine: Bone marrow signal and alignment are normal. The height of the vertebral bodies appears normal. There is no evidence of a compression fracture. There is no evidence of a disc herniation with normal appearance of the intervertebral discs. The spinal canal is widely patent at all levels within the thoracic spine. The spinal cord is normal in appearance. There is no cord edema, mass or myelomalacia. No epidural collection or other abnormal fluid collection identified. Mild hypertrophic spurring involving the thoracic facets noted at multiple levels. There is no evidence of significant foraminal stenosis or cord compression. No abnormal enhancement is identified. T7 vertebral hemangioma noted. There is a large hiatal hernia. Trace basilar pleural effusions are present. MRI lumbar spine: Bone marrow signal is normal. There is no evidence of bone marrow replacement, contusion or edema, fracture. The visualized part of the distal spinal cord is normal in appearance. Conus medullaris is seen at about lower part of L1 vertebra. There is no abnormal cord or nerve root enhancement. There are [id number] degenerative changes which will be described. The L1-2 disc is normal in appearance. There is no stenosis of the canal or foramen. L2-3 shows mild hypertrophy of the lumbar facets. No central or foraminal stenosis demonstrated. L3-4 shows mild central stenosis and narrowing of the lateral recesses due to facet arthropathy. No foraminal stenosis appreciated. L4-5 demonstrates mild central stenosis, narrowing of the lateral recess due to facet arthropathy and redundancy of ligamentum flavum. There is also mild concentric disc bulge associated moderate narrowing of the intervertebral disc and desiccation of the disc with anterolisthesis mild in degree at this level. Moderate right foraminal stenosis noted. L5-S1: The disc is normal in appearance. There is no central stenosis. Facet arthropathy noted. No significant foraminal stenosis appreciated. IMPRESSION: No evidence of compression of the spinal cord or cauda equina. No intrinsic cord abnormality, edema or other neuropathy identified. Moderate degenerative changes of the mid to lower lumbar spine characterized by degenerative disc disease and facet arthropathy. Disease is most severe at L4-5 which shows evidence of central spinal stenosis and narrowing of the lateral recess and moderate right foraminal stenosis. L3-4 Central stenosis also demonstrated. Other incidental findings as above. Please refer to the CT chest abdomen pelvis report as well No clear evidence for weakness demonstrated in patient clinically given normal cord signal on MRI The T2 FLAIR sequence demonstrates some areas of sulcal hyperintensity particularlyin the posterior aspects of both cerebral hemispheres but also within the rightfrontal region. The main concern is that there is an occult subarachnoid bleed. There is no mass effect or edema within the brain. The ventricles appear normal.Basal cisterns are normal. Flow voids are seen within the superior sagittal sinus,visualized part of the basilar artery and both ICA. There is no abnormal intra-axialor extra-axial fluid collection. As stated previously there is no diffusionrestriction. Empty sella is noted. There is a T2 hyperintense signal within the rightmastoid bone and some mucosal thickening within paranasal sinuses. IMPRESSION: Abnormal T2 hyperintense signal within cerebral sulci bilaterally predominating inthe posterior part of the cerebrum. T his is nonspecific, but the main concern wouldbe an occult subarachnoid bleed. Differential diagnosis includes meningitis,leptomeningeal carcinomatosis or thickening, artifact related to elevated blood poolto CSF ratio. There is no evidence of diffusion restriction i.e. acute stroke toaccount for the finding. Further evaluation with gadolinium-enhanced MRI isrecommended. Clinical correlation also needed. Noncontrast CT of the head is alsorecommended. Sinus disease. Right mastoiditis. ICD Codes: R29.898 - Other symptoms and signs involving the musculoskeletal system SNOMED: 7401901 (5) Febrile illness, acute Assessment & Plan: Consider LP if patient becomes febrile, especially without evidence of peripheral leukocytosis. DDX Encephalitis / Meningitis vs Ischemic Stroke ICD Codes: R50.9 - Fever, unspecified SNOMED: 764841274 Assessment/Plan: Q4 Hour Neuro Obs PT/OT Evals MRI Brain w/o contrast Maintain normothermia Maintain normoglycemia Check TSH Check B12 Check LFTs, BUN , Cr Troponin Lipids Maintain SBP<140 IV Hydration Swallow Karmen Umanzor N.P. March 11, 2019 22:41
[2019-03-12] VITALS (7 sets, daily range): BP systolic 100–123; BP diastolic 52–69
[2019-03-12] MEDS: cefTRIAXone 2 GM in D5W 55 ML IVPB SCH (03:02)
--- NOTE | 2019-03-12 06:45 | General Progress Note ---
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 SNOMED: 025814168 (2) Thrombocytopenia ICD Codes: D69.6 - Thrombocytopenia, unspecified SNOMED: 313606610 (3) Bilateral leg weakness ICD Codes: R29.898 - Other symptoms and signs involving the musculoskeletal system SNOMED: 9446931 (4) Urinary tract infection ICD Codes: N39.0 - Urinary tract infection, site not specified SNOMED: 58742351 (5) Dehydration ICD Codes: E86.0 - Dehydration SNOMED: 54143201 (6) Febrile illness, acute ICD Codes: R50.9 - Fever, unspecified SNOMED: 593549267 Status: stable, progressing Assessment/Plan: repeat TSH is elevated free T4 is elevated as well patient was never treated with thyroxine => thryoid function is consistent with "sick euthyroidism" => no need to start treatment with thyroxine => follow ATPO - pending => repeat thyroid function as OP in 3-4 weeks Subjective Allergies: Coded Allergies: No Known Allergies (Unverified , 03/07/19) All Systems: reviewed and negative except above Subjective events noted Current Medications Medications (Trade) Dose Ordered Sig/Lisette Route PRN Reason Start Time Stop Time Status Last Admin Dose Admin Acetaminophen (Tylenol) 650 mg Q4H PRN ORAL fever (temp>100.5F) 03/07/19 15:15 04/06/19 15:14 Albuterol/ Ipratropium (Albuterol/ Ipratropium) 3 ml Q4H PRN HHN Shortness of Breath 03/07/19 15:15 03/12/19 15:14 Ceftriaxone Sodium 2 gm/ Dextrose 55 ml @ 110 mls/hr Q24H IVPB 03/08/19 03:00 03/15/19 02:59 03/12/19 03:02 Gadobutrol (Gadavist) 7.5 mmol NOW PRN IV Radiology Procedure 03/08/19 23:15 03/12/19 23:14 Morphine Sulfate (Morphine Sulfate) 2 mg Q4H PRN IVP Moderate Pain (Pain Scale 4-6) 03/07/19 15:15 03/14/19 15:14 Nitroglycerin (Ntg) 0.4 mg Q5M PRN SL Prn Chest Pain 03/07/19 15:15 04/06/19 15:14 Ondansetron HCl (Zofran) 4 mg Q6H PRN IVP Nausea & Vomiting 03/07/19 15:15 04/06/19 15:14 03/08/19 16:07 Polyethylene Glycol (Miralax) 17 gm DAILYPRN PRN ORAL Constipation 03/07/19 15:15 04/06/19 15:14 Temazepam (Restoril) 15 mg HSPRN PRN ORAL Insomnia 03/07/19 20:00 03/14/19 19:59 Objective Last 24 Hour Vital Signs Date Time Temp Pulse Resp B/P (MAP) Pulse Ox O2 Delivery O2 Flow Rate FiO2 03/12/19 04:00 98.4 81 16 123/69 (87) 97 03/12/19 00:00 98.4 77 16 121/55 (77) 95 03/11/19 21:02 84 16 94 Room Air 21 03/11/19 21:00 Room Air 03/11/19 20:00 98.5 94 18 132/63 (86) 95 03/11/19 15:38 98.0 79 18 138/69 (92) 97 03/11/19 12:00 98.0 82 18 120/66 (84) 98 03/11/19 08:54 Room Air 03/11/19 08:00 97.6 84 18 129/67 (87) 99 03/11/19 07:01 70 18 97 Room Air 21 Intake and Output 03/11/19 03/12/19 19:00 07:00 Intake Total 480 ml 55 ml Balance 480 ml 55 ml Intake Oral 480 ml IV Total 55 ml # Voids 3 Laboratory Tests 03/11/19 06:45: White Blood Count 5.8, Red Blood Count 3.20L, Hemoglobin 9.5L, Hematocrit 28.2L , Mean Corpuscular Volume 88, Mean Corpuscular Hemoglobin 29.9, Mean Corpuscular Hemoglobin Concent 33.9, Red Cell Distribution Width 12.9, Platelet Count 21L, Mean Platelet Volume 10.7H, Neutrophils (%) (Auto) , Lymphocytes (%) (Auto) , Monocytes (%) (Auto) , Eosinophils (%) (Auto) , Basophils (%) (Auto) , Differential Total Cells Counted 100, Neutrophils % (Manual) 37L, Lymphocytes % (Manual) 39, Monocytes % (Manual) 22H, Eosinophils % (Manual) 2, Basophils % ( Manual) 0, Band Neutrophils 0, Reactive Lymphocytes Occasional, Platelet Estimate DecreasedL, Platelet Morphology Normal, Polychromasia 1+, Sodium Level 141, Potassium Level 3.9, Chloride Level 107, Carbon Dioxide Level 28, Anion Gap 6, Blood Urea Nitrogen 16, Creatinine 0.6, Estimat Glomerular Filtration Rate , Glucose Level 95, Calcium Level 8.1L, Thyroid Stimulating Hormone (TSH) 8.613H, Free Thyroxine 1.59H, Thyroid Peroxidase Antibodies [Pending] Height (Feet): 5 Height (Inches): 1.00 Weight (Pounds): 150 General Appearance: no apparent distress Neck: normal alignment Cardiovascular: normal rate Respiratory/Chest: lungs clear Abdomen: normal bowel sounds Pelvis: normal external exam Objective Current Medications Medications (Trade) Dose Ordered Sig/Lisette Route PRN Reason Start Time Stop Time Status Last Admin Dose Admin Acetaminophen (Tylenol) 650 mg Q4H PRN ORAL fever (temp>100.5F) 03/07/19 15:15 04/06/19 15:14 Albuterol/ Ipratropium (Albuterol/ Ipratropium) 3 ml Q4H PRN HHN Shortness of Breath 03/07/19 15:15 03/12/19 15:14 Ceftriaxone Sodium 2 gm/ Dextrose 55 ml @ 110 mls/hr Q24H IVPB 03/08/19 03:00 03/15/19 02:59 03/12/19 03:02 Gadobutrol (Gadavist) 7.5 mmol NOW PRN IV Radiology Procedure 03/08/19 23:15 03/12/19 23:14 Morphine Sulfate (Morphine Sulfate) 2 mg Q4H PRN IVP Moderate Pain (Pain Scale 4-6) 03/07/19 15:15 03/14/19 15:14 Nitroglycerin (Ntg) 0.4 mg Q5M PRN SL Prn Chest Pain 03/07/19 15:15 04/06/19 15:14 Ondansetron HCl (Zofran) 4 mg Q6H PRN IVP Nausea & Vomiting 03/07/19 15:15 04/06/19 15:14 03/08/19 16:07 Polyethylene Glycol (Miralax) 17 gm DAILYPRN PRN ORAL Constipation 03/07/19 15:15 04/06/19 15:14 Temazepam (Restoril) 15 mg HSPRN PRN ORAL Insomnia 03/07/19 20:00 03/14/19 19:59 Clifford Mora MD March 12, 2019 06:45
--- NOTE | 2019-03-12 07:43 | NUR ---
HAND-OFF: Report given to ASHOK Basurto.
[2019-03-12 08:36] LABS: HEMATOCRIT 27.7 % (37.0-47.0); HEMOGLOBIN 9.1 G/DL (12.0-16.0); MEAN CORPUSCULAR VOLUME 89 FL (80-99); PLATELET COUNT 74 K/UL (150-450); RED BLOOD COUNT 3.11 M/UL (4.20-5.40); RED CELL DISTRIBUTION WIDTH 12.6 % (11.6-14.8); WHITE BLOOD COUNT 5.7 K/UL (4.8-10.8)
[2019-03-12 09:03] LABS: ANION GAP 5 mmol/L (5-15); BLOOD UREA NITROGEN 12 mg/dL (7-18); CALCIUM 8.1 MG/DL (8.5-10.1); CARBON DIOXIDE 29 MMOL/L (21-32); CHLORIDE 108 MMOL/L (98-107); CREATININE 0.6 MG/DL (0.55-1.30); POTASSIUM 3.5 MMOL/L (3.5-5.1); SODIUM 142 MMOL/L (136-145)
--- NOTE | 2019-03-12 09:10 | NUR ---
NURSE NOTES: RN OBTAINED TELEPHONE ORDER FOR BONE MARROW ASPIRATION AND BIOPSY, AND TO ADMINISTER MORPHINE 2MG IVP X1, AND ATIVAN 1MG IV X1 BEFORE THE PROCEDURE. RN LEFT A MESSAGE FOR PATHOLOGY TO LET RN AWARE BEFORE PEDORTHIST SO RN CAN ADMINISTER MEDICATIONS.
[2019-03-12] MEDS ORDERED: LORazepam Inj 2mg/ml 1ml IV PRN (09:15)
[2019-03-12] MEDS ORDERED: Lidocaine 2% MPF 5ml Vial INJ ONE (10:15)
--- NOTE | 2019-03-12 10:42 | NUR ---
NURSE NOTES: PATHOLOGY WILL PERFORM BEDSIDE BONE MARROW ASPIRATION ONCE PHARMACY DELIVERS LIDOCAINE 2% SINGLE USE VIALS X2. RN TO NOTIFY PATHOLOGY WHEN DELIVERED. GRAND-DAUGHTER AT BEDSIDE. PT IN NO APPARENT DISTRESS AT THIS TIME. WILL CONTINUE TO MONITOR.
--- NOTE | 2019-03-12 10:55 | Infectious Diseases Prog Note ---
Assessment/Plan Assessment/Plan Assessment: Febrile illness (not currently febrile)- now severe thrombocytopenia - ?Dengue LE weakness- r/o GBS, r/o ZIka, dengue (given recent travel to [facility]) -MRI brain wo: Abnormal T2 hyperintense signal within cerebral sulci bilaterally predominating in the posterior part of the cerebrum. This is nonspecific, but the main concern would be an occult subarachnoid bleed. Differential diagnosis includes meningitis, leptomeningeal carcinomatosis or thickening, artifact related to elevated blood pool to CSF ratio. There is no evidence of diffusion restriction i.e. acute stroke to account for the finding. Further evaluation with gadolinium-enhanced MRI is recommended. Clinical correlation also needed. Noncontrast CT of the head is also recommended.Sinus disease. Right mastoiditis. -MRI t/ L spine w/wo: No evidence of compression of the spinal cord or cauda equina. No intrinsic cord abnormality, edema or other neuropathy identified. Moderate degenerative changes of the mid to lower lumbar spine characterized by degenerative disc disease and facet arthropathy. Disease is most severe at L4-5 which shows evidence of central spinal stenosis and narrowing of the lateral recess and moderate right foraminal stenosis. L3-4 Central stenosis also demonstrated. Other incidental findings as above. -CT: c/abd/p w/: No acute findings identified within the chest abdomen or pelvis. Large hiatal hernia. Cardiomegaly and arterial vascular disease. Moderate fatty liver. Prominence of the urinary bladder wall. Correlate for cystitis. Villalobos catheter in good position.Degenerative changes of the spine. Probable right renal cyst -CXR: No acute disease -Bcx Neg -influenza sc, HIV sc, RPR, Crag neg Severe thrombocytopenia Elevated AST Mild elevation CPK Chronic LE weakness- prior workup many years ago but unknown results- able to ambulate w/ walker- but now weakness worse, moving fingers but not able to raise legs Plan: -Continue Ceftriaxone #6 for now pending MRI brain w/wo -will d/c if CSF not consistent with bacterial meningitis which i have low suspicion for -03/08 SP Vancomycin #2 -03/07 SP Cefepime #1 -Lumbar puncture- patient currently refusing LP- I explained why it is needed and risks and benefits. Daughter will talk with patient in more detail to see if patient will be agreeable with procedure. -CSF fluid analysis, culture, VDRL, Cocci, CrAg, Dengue, Zika, Chikunguya PCR , oligoclonal bands, MBP, WNV ab -f/u HIV VL, Cocci ab, Zika/Dengue/Chikungunya serology, WNV ab serum -f/u cx -Monitor CBC/CMP, temperatures -Neuro eval: f/u MRI brain w contrast -heme onc f/u Subjective Allergies: Coded Allergies: No Known Allergies (Unverified , 03/07/19) Subjective afebrile no leukocytosis plts improving Objective Vital Signs Last 24 Hour Vital Signs Date Time Temp Pulse Resp B/P (MAP) Pulse Ox O2 Delivery O2 Flow Rate FiO2 03/12/19 10:19 Room Air 03/12/19 09:00 Room Air 03/12/19 08:15 75 16 96 Room Air 21 03/12/19 08:00 97.9 90 14 119/65 (83) 95 03/12/19 04:00 98.4 81 16 123/69 (87) 97 03/12/19 00:00 98.4 77 16 121/55 (77) 95 03/11/19 21:02 84 16 94 Room Air 21 03/11/19 21:00 Room Air 03/11/19 20:00 98.5 94 18 132/63 (86) 95 03/11/19 15:38 98.0 79 18 138/69 (92) 97 03/11/19 12:00 98.0 82 18 120/66 (84) 98 Height (Feet): 5 Height (Inches): 1.00 Weight (Pounds): 150 Objective General Appearance: WD/WN Lines, tubes and drains: peripheral HEENT: normocephalic, anicteric Neck: non-tender, supple, limited range of motion Respiratory/Chest: lungs clear Cardiovascular/Chest: normal rate Abdomen: normal bowel sounds Neuro: unable to elicit knee and ankle reflex, patient did have R>L leg spasticity, upward babinski on L foot, preserved sensation, no clonus Laboratory Tests Test 03/12/19 07:23 White Blood Count 5.7 K/UL (4.8-10.8) Red Blood Count 3.11 M/UL (4.20-5.40) L Hemoglobin 9.1 G/DL (12.0-16.0) L Hematocrit 27.7 % (37.0-47.0) L Mean Corpuscular Volume 89 FL (80-99) Mean Corpuscular Hemoglobin 29.4 PG (27.0-31.0) Mean Corpuscular Hemoglobin Concent 33.0 G/DL (32.0-36.0) Red Cell Distribution Width 12.6 % (11.6-14.8) Platelet Count 74 K/UL (150-450) #L Mean Platelet Volume 10.3 FL (6.5-10.1) H Neutrophils (%) (Auto) % (45.0-75.0) Lymphocytes (%) (Auto) % (20.0-45.0) Monocytes (%) (Auto) % (1.0-10.0) Eosinophils (%) (Auto) % (0.0-3.0) Basophils (%) (Auto) % (0.0-2.0) Neutrophils % (Manual) Pending Lymphocytes % (Manual) Pending Platelet Estimate Pending Platelet Morphology Pending Sodium Level 142 MMOL/L (136-145) Potassium Level 3.5 MMOL/L (3.5-5.1) Chloride Level 108 MMOL/L (98-107) H Carbon Dioxide Level 29 MMOL/L (21-32) Anion Gap 5 mmol/L (5-15) Blood Urea Nitrogen 12 mg/dL (7-18) Creatinine 0.6 MG/DL (0.55-1.30) Estimat Glomerular Filtration Rate mL/min (>60) Glucose Level 93 MG/DL (74-106) Calcium Level 8.1 MG/DL (8.5-10.1) L Current Medications Medications (Trade) Dose Ordered Sig/Lisette Route PRN Reason Start Time Stop Time Status Last Admin Dose Admin Acetaminophen (Tylenol) 650 mg Q4H PRN ORAL fever (temp>100.5F) 03/07/19 15:15 04/06/19 15:14 Albuterol/ Ipratropium (Albuterol/ Ipratropium) 3 ml Q4H PRN HHN Shortness of Breath 03/07/19 15:15 03/12/19 15:14 Ceftriaxone Sodium 2 gm/ Dextrose 55 ml @ 110 mls/hr Q24H IVPB 03/08/19 03:00 03/15/19 02:59 03/12/19 03:02 Gadobutrol (Gadavist) 7.5 mmol NOW PRN IV Radiology Procedure 03/08/19 23:15 03/12/19 23:14 Lorazepam (Ativan 2mg/ml 1ml) 1 mg ONCE PRN IV prior to bone marrow aspiratio 03/12/19 09:15 03/12/19 23:59 Morphine Sulfate (Morphine Sulfate) 2 mg ONCE PRN IVP prior bone marrow aspiration 03/12/19 11:00 03/12/19 23:59 Morphine Sulfate (Morphine Sulfate) 2 mg Q4H PRN IVP Moderate Pain (Pain Scale 4-6) 03/07/19 15:15 03/14/19 15:14 Nitroglycerin (Ntg) 0.4 mg Q5M PRN SL Prn Chest Pain 03/07/19 15:15 04/06/19 15:14 Ondansetron HCl (Zofran) 4 mg Q6H PRN IVP Nausea & Vomiting 03/07/19 15:15 04/06/19 15:14 03/08/19 16:07 Polyethylene Glycol (Miralax) 17 gm DAILYPRN PRN ORAL Constipation 03/07/19 15:15 04/06/19 15:14 Temazepam (Restoril) 15 mg HSPRN PRN ORAL Insomnia 03/07/19 20:00 03/14/19 19:59 Olga Lidia Renee M.D. March 12, 2019 10:55
[2019-03-12] MEDS ORDERED: Morphine Sulfate 2mg/ml Inj(IV/IM USE ONLY) IVP PRN (11:00)
--- NOTE | 2019-03-12 12:21 | General Progress Note ---
Assessment/Plan Problem List: (1) Thrombocytopenia ICD Codes: D69.6 - Thrombocytopenia, unspecified SNOMED: 200053935 (2) Urinary tract infection ICD Codes: N39.0 - Urinary tract infection, site not specified SNOMED: 05468847 (3) Bilateral leg weakness ICD Codes: R29.898 - Other symptoms and signs involving the musculoskeletal system SNOMED: 6588945 (4) Febrile illness, acute ICD Codes: R50.9 - Fever, unspecified SNOMED: 983171282 (5) Dehydration ICD Codes: E86.0 - Dehydration SNOMED: 80606587 Status: stable, progressing Assessment/Plan: pt diet abx ivf heme eval cbc bmp am dc to [facility] if clear Subjective Constitutional: Reports: weakness Allergies: Coded Allergies: No Known Allergies (Unverified , 03/07/19) All Systems: reviewed and negative except above Subjective sleepy calm Objective Last 24 Hour Vital Signs Date Time Temp Pulse Resp B/P (MAP) Pulse Ox O2 Delivery O2 Flow Rate FiO2 03/12/19 10:19 Room Air 03/12/19 09:00 Room Air 03/12/19 08:15 75 16 96 Room Air 21 03/12/19 08:00 97.9 90 14 119/65 (83) 95 03/12/19 04:00 98.4 81 16 123/69 (87) 97 03/12/19 00:00 98.4 77 16 121/55 (77) 95 03/11/19 21:02 84 16 94 Room Air 21 03/11/19 21:00 Room Air 03/11/19 20:00 98.5 94 18 132/63 (86) 95 03/11/19 15:38 98.0 79 18 138/69 (92) 97 Intake and Output 03/11/19 03/12/19 19:00 07:00 Intake Total 480 ml 55 ml Balance 480 ml 55 ml Intake Oral 480 ml IV Total 55 ml # Voids 3 5 Laboratory Tests 03/12/19 07:23: White Blood Count 5.7, Red Blood Count 3.11L, Hemoglobin 9.1L, Hematocrit 27.7L , Mean Corpuscular Volume 89, Mean Corpuscular Hemoglobin 29.4, Mean Corpuscular Hemoglobin Concent 33.0, Red Cell Distribution Width 12.6, Platelet Count 74#L, Mean Platelet Volume 10.3H, Neutrophils (%) (Auto) , Lymphocytes (% ) (Auto) , Monocytes (%) (Auto) , Eosinophils (%) (Auto) , Basophils (%) (Auto) , Differential Total Cells Counted 100, Neutrophils % (Manual) 43L, Lymphocytes % (Manual) 38, Monocytes % (Manual) 17H, Eosinophils % (Manual) 2, Basophils % ( Manual) 0, Band Neutrophils 0, Platelet Estimate DecreasedL, Platelet Morphology Normal, Hypochromasia 1+, Sodium Level 142, Potassium Level 3.5, Chloride Level 108H, Carbon Dioxide Level 29, Anion Gap 5, Blood Urea Nitrogen 12, Creatinine 0.6, Estimat Glomerular Filtration Rate , Glucose Level 93, Calcium Level 8.1L Height (Feet): 5 Height (Inches): 1.00 Weight (Pounds): 150 General Appearance: lethargic EENT: normal ENT inspection Neck: normal alignment Cardiovascular: normal peripheral pulses, normal rate, regular rhythm Respiratory/Chest: chest wall non-tender, lungs clear, normal breath sounds Abdomen: normal bowel sounds, non tender, soft Extremities: normal inspection Edema: no edema noted Arm (L), no edema noted Arm (R), no edema noted Leg (L), no edema noted Leg (R), no edema noted Pedal (L), no edema noted Pedal (R), no edema noted Generalized Neurologic: motor weakness Skin: normal pigmentation, warm/dry Jason CastanonAna March 12, 2019 12:21
--- NOTE | 2019-03-12 12:30 | NUR ---
NURSE NOTES: RN MADE DR NAIK AWARE OF DISCHARGE ORDER. PER MD, DO NOT DISCHARGE UNTIL LUMBAR PUNCTURE DONE.
--- NOTE | 2019-03-12 13:11 | Diagnostic Imaging Report ---
EXAM: MR Head Without And With Intravenous Contrast CLINICAL HISTORY: WEAK TECHNIQUE: Magnetic resonance images of the head/brain without and with intravenous contrast in multiple planes. COMPARISON: MRI brain on 03/07/2019 FINDINGS: Brain: The previously visualized T2 hyperintense signal within the cerebral sulci is not appreciated on today's exam. No susceptibility artifacts to suggest evidence of hemorrhage. No restricted diffusion to suggest acute infarct. No abnormal enhancement. Stable mild chronic small vessel ischemic disease. Ventricles: Unremarkable. No ventriculomegaly. Bones/joints: Unremarkable. Sinuses: Unremarkable as visualized. No acute sinusitis. Mastoid air cells: Unremarkable as visualized. No mastoid effusion. Orbits: Bilateral lens implants. IMPRESSION: 1. No evidence of acute infarct. No abnormal enhancement. 2. The previously visualized T2 hyperintense signal within the cerebral sulci is not appreciated on today's exam. No susceptibility artifact to suggest evidence of hemorrhage.
--- NOTE | 2019-03-12 13:17 | NUR ---
NURSE NOTES: PT RESTING IN BED AFTER BONE MARROW ASPIRATION. IN NO APPARENT DISTRESS AT THIS TIME. VSS. WILL CONTINUE TO MONITOR.
--- NOTE | 2019-03-12 13:28 | Pulmonology Progress Note ---
Assessment/Plan Problems: (1) Febrile illness, acute (2) Recent foreign travel (3) Bilateral leg weakness Assessment/Plan spinal tap is scheduled for today doing better afebrile now f/u neuro recommendation check cultures, blood cultures are negative so far. f/u ID recommendation a Subjective ROS Limited/Unobtainable: No Constitutional: Reports: no symptoms HEENT: Repors: no symptoms Allergies: Coded Allergies: No Known Allergies (Unverified , 03/07/19) Objective Last 24 Hour Vital Signs Date Time Temp Pulse Resp B/P (MAP) Pulse Ox O2 Delivery O2 Flow Rate FiO2 03/12/19 12:00 97.2 82 14 107/52 (70) 94 03/12/19 10:19 Room Air 03/12/19 09:00 Room Air 03/12/19 08:15 75 16 96 Room Air 21 03/12/19 08:00 97.9 90 14 119/65 (83) 95 03/12/19 04:00 98.4 81 16 123/69 (87) 97 03/12/19 00:00 98.4 77 16 121/55 (77) 95 03/11/19 21:02 84 16 94 Room Air 21 03/11/19 21:00 Room Air 03/11/19 20:00 98.5 94 18 132/63 (86) 95 03/11/19 15:38 98.0 79 18 138/69 (92) 97 Intake and Output 03/11/19 03/12/19 19:00 07:00 Intake Total 480 ml 55 ml Balance 480 ml 55 ml Intake Oral 480 ml IV Total 55 ml # Voids 3 5 Objective HEENT: normocephalic, atraumatic Respiratory/Chest: chest wall non-tender, lungs clear Cardiovascular: normal peripheral pulses, normal rate Abdomen: normal bowel sounds, no organomegaly Extremities: no cyanosis Skin: no lesions Laboratory Tests 03/12/19 07:23: White Blood Count 5.7, Red Blood Count 3.11L, Hemoglobin 9.1L, Hematocrit 27.7L , Mean Corpuscular Volume 89, Mean Corpuscular Hemoglobin 29.4, Mean Corpuscular Hemoglobin Concent 33.0, Red Cell Distribution Width 12.6, Platelet Count 74#L, Mean Platelet Volume 10.3H, Neutrophils (%) (Auto) , Lymphocytes (% ) (Auto) , Monocytes (%) (Auto) , Eosinophils (%) (Auto) , Basophils (%) (Auto) , Differential Total Cells Counted 100, Neutrophils % (Manual) 43L, Lymphocytes % (Manual) 38, Monocytes % (Manual) 17H, Eosinophils % (Manual) 2, Basophils % ( Manual) 0, Band Neutrophils 0, Platelet Estimate DecreasedL, Platelet Morphology Normal, Hypochromasia 1+, Sodium Level 142, Potassium Level 3.5, Chloride Level 108H, Carbon Dioxide Level 29, Anion Gap 5, Blood Urea Nitrogen 12, Creatinine 0.6, Estimat Glomerular Filtration Rate , Glucose Level 93, Calcium Level 8.1L Current Medications Medications (Trade) Dose Ordered Sig/Lisette Route PRN Reason Start Time Stop Time Status Last Admin Dose Admin Acetaminophen (Tylenol) 650 mg Q4H PRN ORAL fever (temp>100.5F) 03/07/19 15:15 04/06/19 15:14 Albuterol/ Ipratropium (Albuterol/ Ipratropium) 3 ml Q4H PRN HHN Shortness of Breath 03/07/19 15:15 03/12/19 15:14 Ceftriaxone Sodium 2 gm/ Dextrose 55 ml @ 110 mls/hr Q24H IVPB 03/08/19 03:00 03/15/19 02:59 03/12/19 03:02 Gadobutrol (Gadavist) 7.5 mmol NOW PRN IV Radiology Procedure 03/08/19 23:15 03/12/19 23:14 Lidocaine HCl (Xylocaine 2% MPF) 5 ml ONCE PRN INJ FOR LP 03/12/19 13:30 03/12/19 23:59 Lorazepam (Ativan 2mg/ml 1ml) 1 mg ONCE PRN IV prior to bone marrow aspiratio 03/12/19 09:15 03/12/19 23:59 03/12/19 10:59 Morphine Sulfate (Morphine Sulfate) 2 mg ONCE PRN IVP prior bone marrow aspiration 03/12/19 11:00 03/12/19 23:59 03/12/19 11:03 Morphine Sulfate (Morphine Sulfate) 2 mg Q4H PRN IVP Moderate Pain (Pain Scale 4-6) 03/07/19 15:15 03/14/19 15:14 Nitroglycerin (Ntg) 0.4 mg Q5M PRN SL Prn Chest Pain 03/07/19 15:15 04/06/19 15:14 Ondansetron HCl (Zofran) 4 mg Q6H PRN IVP Nausea & Vomiting 03/07/19 15:15 04/06/19 15:14 03/08/19 16:07 Polyethylene Glycol (Miralax) 17 gm DAILYPRN PRN ORAL Constipation 03/07/19 15:15 04/06/19 15:14 Temazepam (Restoril) 15 mg HSPRN PRN ORAL Insomnia 03/07/19 20:00 03/14/19 19:59 Jenny Wilkerson MD March 12, 2019 13:28
[2019-03-12] MEDS ORDERED: Lidocaine 2% MPF 5ml Vial INJ PRN (13:30)
--- NOTE | 2019-03-12 14:42 | Hematology/Onc Progress Note ---
Assessment/Plan Assessment/Plan Assessment and Recs: # Thrombocytopenia - potential causes multifactorial, evaluate liver and viral etiologies to begin, also could be related to underlying medications patient has received such as heparin (HAS BEEN DISCONTINUED), also at this time on abx, cefe and vanc, monitor abx closely, ALSO SMEAR reviewed --> Hep panel and HIV are negative --> CT of the a/p reviewed,and no cirrhosis/hsm reviewed, no predominant LAD, lymphadenopathy noted, no mass --> Peripheral smear has been reviewed, no blasts noted, 1% myelocytes, 1% metamyelocytes noted as well --> abx and other meds have been reviewed --> Transfuse if Plt < 20k and fever, or if Plt < 10k without fever --> heparin has been discontinued sq --> HIT Ab has been ordered --> A BONE MARROW BIOPSY has been ordered to r/o malignancy/leukemia (for thrombocytopenia) dw rn --> if to be discharged, then patient to followup in outpatient clinic # Anemia of chronic disease due to underlying chronic medical issues, multifactorial --> CONSIDER w/u if hgb lower w/u --> No evidence of hemolysis is noted, peripheral smear has been reviewed. --> Hgb goal >7. Transfuse prn. --> Epogen or iron at this time is not particularly indicated --> ferritin is 1345 # Urinary tract infection --> blood and urine culture pending --> on abx as per id, vanc/cefepime # Dehydration --> IVF has been started # Lower extremity weakness Differential diagnosis include was not limited to Guillain-Pike v uti v generalized weakness --> LP considering as per neuro The timing of this note does not necessarily reflect the time of the patient was seen. Greatly appreciate consultation! Subjective Constitutional: Denies: no symptoms, chills, fever, malaise, weakness, other HEENT: Denies: no symptoms, eye pain, blurred vision, tearing, double vision, ear pain, ear discharge, nose pain, nose congestion, throat pain, throat swelling, mouth pain, mouth swelling, other Gastrointestinal/Abdominal: Denies: no symptoms, abdomen distended, abdominal pain, black stools, tarry stools, blood in stool, constipated, diarrhea, difficulty swallowing, nausea, poor appetite, poor fluid intake, rectal bleeding , vomiting, other Genitourinary: Denies: no symptoms, burning, discharge, frequency, flank pain, hematuria, incontinence, pain, urgency, other Neurologic/Psychiatric: Denies: no symptoms, anxiety, depressed, emotional problems, headache, numbness, paresthesia, pre-existing deficit, seizure, tingling, tremors, weakness, other Endocrine: Denies: no symptoms, excessive sweating, flushing, intolerance to cold, intolerance to heat, increased hunger, increased thirst, increased urine, unexplained weight gain, unexplained weight loss, other Hematologic/Lymphatic: Denies: no symptoms, anemia, easy bleeding, easy bruising, adenopathy, other Allergies: Coded Allergies: No Known Allergies (Unverified , 03/07/19) Subjective 03/10: platelets are stable, no events, no fevers noted, have placed orders for bone marrow biopsy 03/11: discussed her case with granddaughter, have placed biopsy order for tomorrow and dw path 03/12: no events noted, to get a bone marrow biopsy, no f/c Objective Objective Current Medications Medications (Trade) Dose Ordered Sig/Lisette Route PRN Reason Start Time Stop Time Status Last Admin Dose Admin Acetaminophen (Tylenol) 650 mg Q4H PRN ORAL fever (temp>100.5F) 03/07/19 15:15 04/06/19 15:14 Albuterol/ Ipratropium (Albuterol/ Ipratropium) 3 ml Q4H PRN HHN Shortness of Breath 03/07/19 15:15 03/12/19 15:14 Ceftriaxone Sodium 2 gm/ Dextrose 55 ml @ 110 mls/hr Q24H IVPB 03/08/19 03:00 03/15/19 02:59 03/12/19 03:02 Gadobutrol (Gadavist) 7.5 mmol NOW PRN IV Radiology Procedure 03/08/19 23:15 03/12/19 23:14 Lidocaine HCl (Xylocaine 2% MPF) 5 ml ONCE PRN INJ FOR LP 03/12/19 13:30 03/12/19 23:59 Lorazepam (Ativan 2mg/ml 1ml) 1 mg ONCE PRN IV prior to bone marrow aspiratio 03/12/19 09:15 03/12/19 23:59 03/12/19 10:59 Morphine Sulfate (Morphine Sulfate) 2 mg ONCE PRN IVP prior bone marrow aspiration 03/12/19 11:00 03/12/19 23:59 03/12/19 11:03 Morphine Sulfate (Morphine Sulfate) 2 mg Q4H PRN IVP Moderate Pain (Pain Scale 4-6) 03/07/19 15:15 03/14/19 15:14 Nitroglycerin (Ntg) 0.4 mg Q5M PRN SL Prn Chest Pain 03/07/19 15:15 04/06/19 15:14 Ondansetron HCl (Zofran) 4 mg Q6H PRN IVP Nausea & Vomiting 03/07/19 15:15 04/06/19 15:14 03/08/19 16:07 Polyethylene Glycol (Miralax) 17 gm DAILYPRN PRN ORAL Constipation 03/07/19 15:15 04/06/19 15:14 Temazepam (Restoril) 15 mg HSPRN PRN ORAL Insomnia 03/07/19 20:00 03/14/19 19:59 Last 24 Hour Vital Signs Date Time Temp Pulse Resp B/P (MAP) Pulse Ox O2 Delivery O2 Flow Rate FiO2 03/12/19 12:00 97.2 82 14 107/52 (70) 94 03/12/19 10:19 Room Air 03/12/19 09:00 Room Air 03/12/19 08:15 75 16 96 Room Air 21 03/12/19 08:00 97.9 90 14 119/65 (83) 95 03/12/19 04:00 98.4 81 16 123/69 (87) 97 03/12/19 00:00 98.4 77 16 121/55 (77) 95 03/11/19 21:02 84 16 94 Room Air 21 03/11/19 21:00 Room Air 03/11/19 20:00 98.5 94 18 132/63 (86) 95 03/11/19 15:38 98.0 79 18 138/69 (92) 97 03/11/19 12:00 98.0 82 18 120/66 (84) 98 03/11/19 08:54 Room Air 03/11/19 08:00 97.6 84 18 129/67 (87) 99 03/11/19 07:01 70 18 97 Room Air 21 03/11/19 04:00 98.6 77 18 119/74 (89) 98 03/11/19 00:00 98.4 92 18 127/73 (91) 99 03/10/19 21:00 Room Air 03/10/19 20:43 76 20 98 Room Air 21 03/10/19 20:00 98.1 91 18 137/61 (86) 97 03/10/19 16:00 97.8 82 20 125/73 (90) 97 Intake and Output 03/11/19 03/12/19 19:00 07:00 Intake Total 480 ml 55 ml Balance 480 ml 55 ml Intake Oral 480 ml IV Total 55 ml # Voids 3 5 Labs Test 03/10/19 07:51 03/10/19 20:21 03/11/19 06:45 03/12/19 07:23 White Blood Count 8.5 K/UL (4.8-10.8) 5.8 K/UL (4.8-10.8) 5.7 K/UL (4.8-10.8) Red Blood Count 3.89 M/UL (4.20-5.40) 3.20 M/UL (4.20-5.40) 3.11 M/UL (4.20-5.40) Hemoglobin 11.4 G/DL (12.0-16.0) 9.5 G/DL (12.0-16.0) 9.1 G/DL (12.0-16.0) Hematocrit 34.4 % (37.0-47.0) 28.2 % (37.0-47.0) 27.7 % (37.0-47.0) Mean Corpuscular Volume 89 FL (80-99) 88 FL (80-99) 89 FL (80-99) Mean Corpuscular Hemoglobin 29.5 PG (27.0-31.0) 29.9 PG (27.0-31.0) 29.4 PG (27.0-31.0) Mean Corpuscular Hemoglobin Concent 33.3 G/DL (32.0-36.0) 33.9 G/DL (32.0-36.0) 33.0 G/DL (32.0-36.0) Red Cell Distribution Width 12.9 % (11.6-14.8) 12.9 % (11.6-14.8) 12.6 % (11.6-14.8) Platelet Count 20 K/UL (150-450) 21 K/UL (150-450) 74 K/UL (150-450) Mean Platelet Volume 14.8 FL (6.5-10.1) 10.7 FL (6.5-10.1) 10.3 FL (6.5-10.1) Neutrophils (%) (Auto) % (45.0-75.0) % (45.0-75.0) % (45.0-75.0) Lymphocytes (%) (Auto) % (20.0-45.0) % (20.0-45.0) % (20.0-45.0) Monocytes (%) (Auto) % (1.0-10.0) % (1.0-10.0) % (1.0-10.0) Eosinophils (%) (Auto) % (0.0-3.0) % (0.0-3.0) % (0.0-3.0) Basophils (%) (Auto) % (0.0-2.0) % (0.0-2.0) % (0.0-2.0) Differential Total Cells Counted 100 100 100 Neutrophils % (Manual) 25 % (45-75) 37 % (45-75) 43 % (45-75) Lymphocytes % (Manual) 51 % (20-45) 39 % (20-45) 38 % (20-45) Monocytes % (Manual) 21 % (1-10) 22 % (1-10) 17 % (1-10) Eosinophils % (Manual) 1 % (0-3) 2 % (0-3) 2 % (0-3) Basophils % (Manual) 0 % (0-2) 0 % (0-2) 0 % (0-2) Band Neutrophils 2 % (0-8) 0 % (0-8) 0 % (0-8) Reactive Lymphocytes 1+ Occasional Platelet Estimate Decreased Decreased Decreased Platelet Morphology Normal Normal Normal Hypochromasia 1+ 1+ Sodium Level 139 MMOL/L (136-145) 141 MMOL/L (136-145) 142 MMOL/L (136-145) Potassium Level 4.5 MMOL/L (3.5-5.1) 3.9 MMOL/L (3.5-5.1) 3.5 MMOL/L (3.5-5.1) Chloride Level 106 MMOL/L (98-107) 107 MMOL/L (98-107) 108 MMOL/L (98-107) Carbon Dioxide Level 26 MMOL/L (21-32) 28 MMOL/L (21-32) 29 MMOL/L (21-32) Anion Gap 7 mmol/L (5-15) 6 mmol/L (5-15) 5 mmol/L (5-15) Blood Urea Nitrogen 24 mg/dL (7-18) 16 mg/dL (7-18) 12 mg/dL (7-18) Creatinine 0.7 MG/DL (0.55-1.30) 0.6 MG/DL (0.55-1.30) 0.6 MG/DL (0.55-1.30) Estimat Glomerular Filtration Rate mL/min (>60) mL/min (>60) mL/min (>60) Glucose Level 100 MG/DL (74-106) 95 MG/DL (74-106) 93 MG/DL (74-106) Calcium Level 8.2 MG/DL (8.5-10.1) 8.1 MG/DL (8.5-10.1) 8.1 MG/DL (8.5-10.1) Fibrinogen 130 mg/dL (200-400) Iron Level 106 ug/dL (50-175) Total Iron Binding Capacity 253 ug/dL (250-450) Percent Iron Saturation 42 % (15-50) Unsaturated Iron Binding 147 ug/dL (112-346) Ferritin 1345 NG/ML (8-388) Vitamin B12 Level 1392 PG/ML (193-986) Folate 10.9 NG/ML (8.6-58.9) Thyroid Stimulating Hormone (TSH) 9.146 uiU/mL (0.358-3.740) 8.613 uiU/mL (0.358-3.740) Polychromasia 1+ Free Thyroxine 1.59 NG/DL (0.76-1.46) Height (Feet): 5 Height (Inches): 1.00 Weight (Pounds): 150 Objective Gen: alert, GCS 15, non-toxic, obese, Chronically Ill Head: normocephalic Eyes: bilateral eye PERRL ENT: normal ENT inspection, normal voice Neck: limited range of motion Respiratory: lungs clear, normal breath sounds Cardiovascular: normal inspection, regular rate, rhythm Gastrointestinal: normal inspection, normal bowel sounds,nt, nd Neurologic: normal inspection, alert, oriented x3 Nicholas Coffey MD March 12, 2019 14:42
--- NOTE | 2019-03-12 14:48 | NUR ---
NURSE NOTES: PT RECEIVED FROM RADIOLOGY POST LUMBAR PUNCTURE. PT SLEEPING, RESTING IN BED. VITAL SIGNS STABLE. GRANDDAUGHTER AT BEDSIDE. IN NO APPARENT DISTRESS AT THIS TIME. PT AT HIGH MCNEIL'S POSITION. WILL CONTINUE TO MONITOR.
--- NOTE | 2019-03-12 15:06 | NUR ---
NURSE NOTES: RN LEFT MESSAGE FOR DR NAIK'S EXCHANGE REGARDING CSF PROTEIN 59 AND CSF GLUCOSE 64.
--- NOTE | 2019-03-12 15:07 | Diagnostic Imaging Report ---
Indication: altered mental status Findings: After the indications, procedure, risks, complications, and alternatives of the procedure were explained, written informed consent was obtained. The lower back was prepped and draped in standard sterile fashion.1% lidocaine was used to anesthetize the skin. Using fluoroscopic guidance, 22-gauge spinal needle was advanced into the spinal canal at the level of L4. Opening pressure was 17 cm of water. 8-9cc of clear CSF was removed. There were no complications. Patient tolerated the procedure well. []Total fluoroscopic time 63 seconds. Impression: Successful lumbar puncture.
--- NOTE | 2019-03-12 15:57 | NUR ---
*-* INSURANCE -* UPDATED CLINICALS HAVE BEENF AXED TO: [facility] NCM:REJI P:[phone] F:[phone]
--- NOTE | 2019-03-12 16:24 | NUR ---
NURSE NOTES: RN LEFT MESSAGE FOR DR NAIK'S EXCHANGE REGARDING CSF WBC 2.0 LEVEL CALLED IN BY [facility].
--- NOTE | 2019-03-12 17:08 | Neurology Progress Note ---
Interim History Interim History ROS Limited/Unobtainable: No Complaints: LE Weakness Events: MRI w/ contrast done - negative Interim History This visit was performed on March 12, [address] Brice Palafox. Objective Physical Exam Last Vital Signs Date Time Temp Pulse Resp B/P (MAP) Pulse Ox O2 Delivery O2 Flow Rate FiO2 03/12/19 16:00 97.5 72 19 104/62 (76) 100 03/12/19 10:19 Room Air 03/12/19 08:15 21 Laboratory Tests Test 03/12/19 07:23 03/12/19 14:00 03/12/19 14:20 White Blood Count 5.7 K/UL (4.8-10.8) Red Blood Count 3.11 M/UL (4.20-5.40) L Hemoglobin 9.1 G/DL (12.0-16.0) L Hematocrit 27.7 % (37.0-47.0) L Mean Corpuscular Volume 89 FL (80-99) Mean Corpuscular Hemoglobin 29.4 PG (27.0-31.0) Mean Corpuscular Hemoglobin Concent 33.0 G/DL (32.0-36.0) Red Cell Distribution Width 12.6 % (11.6-14.8) Platelet Count 74 K/UL (150-450) #L Mean Platelet Volume 10.3 FL (6.5-10.1) H Neutrophils (%) (Auto) % (45.0-75.0) Lymphocytes (%) (Auto) % (20.0-45.0) Monocytes (%) (Auto) % (1.0-10.0) Eosinophils (%) (Auto) % (0.0-3.0) Basophils (%) (Auto) % (0.0-2.0) Differential Total Cells Counted 100 Neutrophils % (Manual) 43 % (45-75) L Lymphocytes % (Manual) 38 % (20-45) Monocytes % (Manual) 17 % (1-10) H Eosinophils % (Manual) 2 % (0-3) Basophils % (Manual) 0 % (0-2) Band Neutrophils 0 % (0-8) Platelet Estimate Decreased L Platelet Morphology Normal Hypochromasia 1+ Sodium Level 142 MMOL/L (136-145) Potassium Level 3.5 MMOL/L (3.5-5.1) Chloride Level 108 MMOL/L (98-107) H Carbon Dioxide Level 29 MMOL/L (21-32) Anion Gap 5 mmol/L (5-15) Blood Urea Nitrogen 12 mg/dL (7-18) Creatinine 0.6 MG/DL (0.55-1.30) Estimat Glomerular Filtration Rate mL/min (>60) Glucose Level 93 MG/DL (74-106) Calcium Level 8.1 MG/DL (8.5-10.1) L CSF Glucose 64 mg/dL (40-70) 64 mg/dL (40-70) CSF Total Protein 59 MG/DL (15-45) H 59 MG/DL (15-45) H CSF Appearance Clear (Clear) CSF Color Colorless (Colorless) CSF WBC 2 /CU MM (0-5) CSF RBC 12 /CU MM CSF Neutrophils % % CSF Lymphocytes % % CSF Monocytes % % CSF Crenated Cells % General: well developed, well nourished, no acute distress Head: normocophalic, atraumatic Neck: no rigidity EENT: benign Neurologic Exam Mental Status: awake, alert, oriented x4, normal cognition, good mathematical skills, normal recent memory, normal remote memory, preserved visuospatial function Speech: normal speech, no dysarthia Language: normal language, no aphasia Cranial Nerve II: fundus normal, visual noriega, no papilledema Cranial Nerves III, IV, : PERRLA, EOMI, pupils Cranial Nerve V: normal facial sensations, temporales function normal, masseters function normal, pterygoids function normal Cranial Nerve VII: no facial asymmetry, normal facial expressions Cranial Nerve VIII: normal hearing, no nystagmus Cranial Nerve IX: normal palate elevation, gag response Cranial Nerve X: no voice hoarseness Cranial Nerve XI: SCM symmetric, trapezii function normal Cranial Nerve XII: tongue midline, no tongue atrophy/fasciculations Motor System: normal muscle tone, no involuntary movement, no muscle wasting Sensory: normal pinprick, normal light touch Coordination: normal finger to nose bilaterally Deep Tendon Reflexes: 1+ bicep (L), 1+ bicep (R), 1+ tricep (L), 1+ tricep (R) , 1+ brachioradialis (L), 1+ brachioradialis (R), 1+ knee (L), 1+ knee (R), 1+ ankle (L), 1+ ankle (R) Reflexes: flexor plantar (L), flexor plantar (R); extensor plantar (L), extensor plantar (R) Objective LLE 2/5 RLE 3/5 weakest at hip flexors UEs full strength and AG FC x 4 Non focal on exam with generalized weakness. No facial weakness or tongue deviation Speech is in [place]ian but all normal. Impression/Recommendations Problems: (1) Thrombocytopenia Assessment & Plan: Heme/ Onc workup (2) Dehydration (3) Urinary tract infection (4) Bilateral leg weakness Assessment & Plan: MRI thoracic spine: Bone marrow signal and alignment are normal. The height of the vertebral bodies appears normal. There is no evidence of a compression fracture. There is no evidence of a disc herniation with normal appearance of the intervertebral discs. The spinal canal is widely patent at all levels within the thoracic spine. The spinal cord is normal in appearance. There is no cord edema, mass or myelomalacia. No epidural collection or other abnormal fluid collection identified. Mild hypertrophic spurring involving the thoracic facets noted at multiple levels. There is no evidence of significant foraminal stenosis or cord compression. No abnormal enhancement is identified. T7 vertebral hemangioma noted. There is a large hiatal hernia. Trace basilar pleural effusions are present. MRI lumbar spine: Bone marrow signal is normal. There is no evidence of bone marrow replacement, contusion or edema, fracture. The visualized part of the distal spinal cord is normal in appearance. Conus medullaris is seen at about lower part of L1 vertebra. There is no abnormal cord or nerve root enhancement. There are pbof-ke-paumoszv degenerative changes which will be described. The L1-2 disc is normal in appearance. There is no stenosis of the canal or foramen. L2-3 shows mild hypertrophy of the lumbar facets. No central or foraminal stenosis demonstrated. L3-4 shows mild central stenosis and narrowing of the lateral recesses due to facet arthropathy. No foraminal stenosis appreciated. L4-5 demonstrates mild central stenosis, narrowing of the lateral recess due to facet arthropathy and redundancy of ligamentum flavum. There is also mild concentric disc bulge associated moderate narrowing of the intervertebral disc and desiccation of the disc with anterolisthesis mild in degree at this level. Moderate right foraminal stenosis noted. L5-S1: The disc is normal in appearance. There is no central stenosis. Facet arthropathy noted. No significant foraminal stenosis appreciated. IMPRESSION: No evidence of compression of the spinal cord or cauda equina. No intrinsic cord abnormality, edema or other neuropathy identified. Moderate degenerative changes of the mid to lower lumbar spine characterized by degenerative disc disease and facet arthropathy. Disease is most severe at L4-5 which shows evidence of central spinal stenosis and narrowing of the lateral recess and moderate right foraminal stenosis. L3-4 Central stenosis also demonstrated. Other incidental findings as above. Please refer to the CT chest abdomen pelvis report as well No clear evidence for weakness demonstrated in patient clinically given normal cord signal on MRI The T2 FLAIR sequence demonstrates some areas of sulcal hyperintensity particularlyin the posterior aspects of both cerebral hemispheres but also within the rightfrontal region. The main concern is that there is an occult subarachnoid bleed. There is no mass effect or edema within the brain. The ventricles appear normal.Basal cisterns are normal. Flow voids are seen within the superior sagittal sinus,visualized part of the basilar artery and both ICA. There is no abnormal intra-axialor extra-axial fluid collection. As stated previously there is no diffusionrestriction. Empty sella is noted. There is a T2 hyperintense signal within the rightmastoid bone and some mucosal thickening within paranasal sinuses. IMPRESSION: Abnormal T2 hyperintense signal within cerebral sulci bilaterally predominating inthe posterior part of the cerebrum. T his is nonspecific, but the main concern would be an occult subarachnoid bleed. Differential diagnosis includes meningitis,leptomeningeal carcinomatosis or thickening, artifact related to elevated blood poolto CSF ratio. There is no evidence of diffusion restriction i.e. acute stroke toaccount for the finding. Further evaluation with gadolinium-enhanced MRI isrecommended. Clinical correlation also needed. Noncontrast CT of the head is alsorecommended. Sinus disease. Right mastoiditis. MRI w/ contrast NAD CSF culture without growth so far, pending , ID investigations pending Bone Marrow biopsy pending results for w/u of (5) Febrile illness, acute Assessment & Plan: LP results pending - CSF notable only for mildly elevated protein 56 No significant WBCs, cultures pending, encephalitis/ ID labs will require several days to weeks? DDX Encephalitis / Meningitis vs GBS Myalgia (unlikely) Status: stable, progressing Recommendations MRI Brain w/ contrast NAD Abx as per ID Normothermia Normoglycemia with ISS HgB>8 Replace/ Replete lytes ---> HYPOCALCEMIA Neuro Obs Q4 hrs Continue to track trend CBC/ CMP Not yet clear for discharge from a neurological perspective Na 135-145 Monitor pending CSF labs PT Karmen Bush N.P. March 12, 2019 17:08
--- NOTE | 2019-03-12 19:00 | NUR ---
HAND-OFF: Report given to Namita ROCA RN.
--- NOTE | 2019-03-12 19:13 | NUR ---
NURSE NOTES: Received report from ASHOK Basurto. Patient sleeping. On room air. No signs of distress or labored breathing. IV intact, patent, and saline locked. Bed in lowest position with call light in reach. Will continue with plan of care.
[2019-03-13] VITALS: BP 117/62
[2019-03-13] MEDS: cefTRIAXone 2 GM in D5W 55 ML IVPB SCH (03:22)
[2019-03-13 04:00] VITALS: BP 112/64
[2019-03-13 06:48] LABS: BASOPHILS % (AUTO) 1.2 % (0.0-2.0); EOSINOPHILS % (AUTO) 3.8 % (0.0-3.0); HEMATOCRIT 27.1 % (37.0-47.0); HEMOGLOBIN 8.8 G/DL (12.0-16.0); LYMPHOCYTES % (AUTO) 25.6 % (20.0-45.0); MEAN CORPUSCULAR VOLUME 89 FL (80-99); MONOCYTES % (AUTO) 15.7 % (1.0-10.0); NEUTROPHILS % (AUTO) 53.7 % (45.0-75.0); PLATELET COUNT 132 K/UL (150-450); RED BLOOD COUNT 3.03 M/UL (4.20-5.40); RED CELL DISTRIBUTION WIDTH 13.3 % (11.6-14.8); WHITE BLOOD COUNT 7.2 K/UL (4.8-10.8)
--- NOTE | 2019-03-13 06:51 | General Progress Note ---
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 SNOMED: 979555794 (2) Thrombocytopenia ICD Codes: D69.6 - Thrombocytopenia, unspecified SNOMED: 751018749 (3) Bilateral leg weakness ICD Codes: R29.898 - Other symptoms and signs involving the musculoskeletal system SNOMED: 8834197 (4) Urinary tract infection ICD Codes: N39.0 - Urinary tract infection, site not specified SNOMED: 99364454 (5) Dehydration ICD Codes: E86.0 - Dehydration SNOMED: 84436007 (6) Febrile illness, acute ICD Codes: R50.9 - Fever, unspecified SNOMED: 883373975 Status: stable, progressing Assessment/Plan: repeat TSH is elevated free T4 is elevated as well ATPO is negative patient was never treated with thyroxine => thryoid function is consistent with "sick euthyroidism" => no need to start treatment with thyroxine => repeat thyroid function as OP in 3-4 weeks Subjective Allergies: Coded Allergies: No Known Allergies (Unverified , 03/07/19) All Systems: reviewed and negative except above Subjective events noted Objective Last 24 Hour Vital Signs Date Time Temp Pulse Resp B/P (MAP) Pulse Ox O2 Delivery O2 Flow Rate FiO2 03/13/19 04:00 97.3 88 20 112/64 (80) 96 03/13/19 00:00 98.8 86 18 117/62 (80) 95 03/12/19 21:00 Room Air 03/12/19 20:00 98.0 86 20 104/63 (77) 99 03/12/19 19:54 73 18 96 Room Air 21 03/12/19 16:00 97.5 72 19 104/62 (76) 100 03/12/19 14:44 76 15 100/62 (75) 97 03/12/19 12:00 97.2 82 14 107/52 (70) 94 03/12/19 10:19 Room Air 03/12/19 09:00 Room Air 03/12/19 08:15 75 16 96 Room Air 21 03/12/19 08:00 97.9 90 14 119/65 (83) 95 Intake and Output 03/12/19 03/13/19 19:00 07:00 Intake Total 360 ml Balance 360 ml Other 360 ml # Voids 2 4 Laboratory Tests 03/12/19 07:23: White Blood Count 5.7, Red Blood Count 3.11L, Hemoglobin 9.1L, Hematocrit 27.7L , Mean Corpuscular Volume 89, Mean Corpuscular Hemoglobin 29.4, Mean Corpuscular Hemoglobin Concent 33.0, Red Cell Distribution Width 12.6, Platelet Count 74#L, Mean Platelet Volume 10.3H, Neutrophils (%) (Auto) , Lymphocytes (% ) (Auto) , Monocytes (%) (Auto) , Eosinophils (%) (Auto) , Basophils (%) (Auto) , Differential Total Cells Counted 100, Neutrophils % (Manual) 43L, Lymphocytes % (Manual) 38, Monocytes % (Manual) 17H, Eosinophils % (Manual) 2, Basophils % ( Manual) 0, Band Neutrophils 0, Platelet Estimate DecreasedL, Platelet Morphology Normal, Hypochromasia 1+, Sodium Level 142, Potassium Level 3.5, Chloride Level 108H, Carbon Dioxide Level 29, Anion Gap 5, Blood Urea Nitrogen 12, Creatinine 0.6, Estimat Glomerular Filtration Rate , Glucose Level 93, Calcium Level 8.1L 03/12/19 14:00: CSF Glucose 64, CSF Total Protein 59H 03/12/19 14:20: CSF Glucose 64, CSF Total Protein 59H, CSF Appearance Clear, CSF Color Colorless , CSF WBC 2, CSF RBC 12, CSF Neutrophils % , CSF Lymphocytes % , CSF Monocytes % , CSF Crenated Cells , CSF Herpes Simplex II DNA (PCR) [Pending], CSF Varicella-Zoster IgM Antibody [Pending], Herpes Simplex Virus I DNA (PCR) [ Pending] 03/13/19 05:35: White Blood Count [Pending], Red Blood Count [Pending], Hemoglobin [Pending], Hematocrit [Pending], Mean Corpuscular Volume [Pending], Mean Corpuscular Hemoglobin [Pending], Mean Corpuscular Hemoglobin Concent [Pending], Red Cell Distribution Width [Pending], Platelet Count [Pending], Mean Platelet Volume [ Pending], Neutrophils (%) (Auto) [Pending], Lymphocytes (%) (Auto) [Pending], Monocytes (%) (Auto) [Pending], Eosinophils (%) (Auto) [Pending], Basophils (%) (Auto) [Pending], Sodium Level [Pending], Potassium Level [Pending], Chloride Level [Pending], Carbon Dioxide Level [Pending], Blood Urea Nitrogen [Pending], Creatinine [Pending], Estimat Glomerular Filtration Rate [Pending], Glucose Level [Pending], Calcium Level [Pending], Total Bilirubin [Pending], Aspartate Amino Transf (AST/SGOT) [Pending], Alanine Aminotransferase (ALT/SGPT) [Pending] , Alkaline Phosphatase [Pending], Total Creatine Kinase [Pending], Total Protein [Pending], Albumin [Pending], Globulin [Pending] Height (Feet): 5 Height (Inches): 1.00 Weight (Pounds): 139 General Appearance: no apparent distress Neck: normal alignment Cardiovascular: normal rate Respiratory/Chest: lungs clear Abdomen: normal bowel sounds Pelvis: normal external exam Objective Current Medications Medications (Trade) Dose Ordered Sig/Lisette Route PRN Reason Start Time Stop Time Status Last Admin Dose Admin Acetaminophen (Tylenol) 650 mg Q4H PRN ORAL fever (temp>100.5F) 03/07/19 15:15 04/06/19 15:14 Ceftriaxone Sodium 2 gm/ Dextrose 55 ml @ 110 mls/hr Q24H IVPB 03/08/19 03:00 03/15/19 02:59 03/13/19 03:22 Morphine Sulfate (Morphine Sulfate) 2 mg Q4H PRN IVP Moderate Pain (Pain Scale 4-6) 03/07/19 15:15 03/14/19 15:14 Nitroglycerin (Ntg) 0.4 mg Q5M PRN SL Prn Chest Pain 03/07/19 15:15 04/06/19 15:14 Ondansetron HCl (Zofran) 4 mg Q6H PRN IVP Nausea & Vomiting 03/07/19 15:15 04/06/19 15:14 03/08/19 16:07 Polyethylene Glycol (Miralax) 17 gm DAILYPRN PRN ORAL Constipation 03/07/19 15:15 04/06/19 15:14 Temazepam (Restoril) 15 mg HSPRN PRN ORAL Insomnia 03/07/19 20:00 03/14/19 19:59 Clifford Mora MD March 13, 2019 06:51
--- NOTE | 2019-03-13 07:08 | NUR ---
HAND-OFF: Report given to ASHOK Basurto.
[2019-03-13 07:22] LABS: ALANINE AMINOTRANSFERASE 25 U/L (12-78); ALBUMIN 2.5 G/DL (3.4-5.0); ALBUMIN/GLOBULIN RATIO 0.6 (1.0-2.7); ALKALINE PHOSPHATASE 81 U/L (46-116); ANION GAP 7 mmol/L (5-15); ASPARTATE AMINO TRANSFERASE 73 U/L (15-37); BILIRUBIN,TOTAL 0.2 MG/DL (0.2-1.0); BLOOD UREA NITROGEN 13 mg/dL (7-18); CALCIUM 7.9 MG/DL (8.5-10.1); CARBON DIOXIDE 28 MMOL/L (21-32); CHLORIDE 106 MMOL/L (98-107); CREATININE 0.5 MG/DL (0.55-1.30); POTASSIUM 3.6 MMOL/L (3.5-5.1); SODIUM 141 MMOL/L (136-145)
[2019-03-13 07:38] LABS: CREATINE KINASE 90 U/L (26-308)
[2019-03-13 08:00] VITALS: BP 110/57
--- NOTE | 2019-03-13 10:57 | PATHOLOGY BONE BARROW ---
Bone Marrow Aspirate & Biopsy . PROCEDURE: Bone Marrow Aspirate and Biopsy INDICATION: Anemia, thrombocytopenia PROCEDURE AREA RELIEF PILOT: Melissa Price MD CONSENT: Consent was previously obtained from the patient. The risks and benefits were re-explained. The patient agreed to undergo the procedure. A TIMEOUT WAS EXECUTED: yes PROCEDURE SUMMARY: The patient was laid in the prone position. The right posterior iliac crest was prepped and draped in a sterile fashion. The crest of the posterior iliac was located, and the skin as well as surface of the bone was anesthetized with 10cc of 2% lidocaine. An aspirating needle was introduced, the bone marrow aspirate was obtained without any difficulty. This was withdrawn the coring needle was advanced into the bone cavity. A bone marrow biopsy was obtained without any complications. ESTIMATED BLOOD LOSS: Negligible REPORTS TO FOLLOW Melissa Price March 13, 2019 10:57
--- NOTE | 2019-03-13 11:24 | Pulmonology Progress Note ---
Assessment/Plan Problems: (1) Febrile illness, acute (2) Recent foreign travel (3) Bilateral leg weakness Assessment/Plan spinal tap is done, clear, colorless, WBC 2, protein slightly elevated\ Bone marrow done, called pathology, nothing drastic on flow cytometry. It will take a few days to get the results from hemo-pathologist. f/u neuro recommendation check cultures, blood cultures are negative so far. f/u ID recommendation Subjective ROS Limited/Unobtainable: No Constitutional: Reports: no symptoms HEENT: Repors: no symptoms Allergies: Coded Allergies: No Known Allergies (Unverified , 03/07/19) Objective Last 24 Hour Vital Signs Date Time Temp Pulse Resp B/P (MAP) Pulse Ox O2 Delivery O2 Flow Rate FiO2 03/13/19 09:04 75 18 96 Room Air 21 03/13/19 09:00 Room Air 03/13/19 08:00 98.7 90 20 110/57 (74) 96 03/13/19 04:00 97.3 88 20 112/64 (80) 96 03/13/19 00:00 98.8 86 18 117/62 (80) 95 03/12/19 21:00 Room Air 03/12/19 20:00 98.0 86 20 104/63 (77) 99 03/12/19 19:54 73 18 96 Room Air 21 03/12/19 16:00 97.5 72 19 104/62 (76) 100 03/12/19 14:44 76 15 100/62 (75) 97 03/12/19 12:00 97.2 82 14 107/52 (70) 94 Intake and Output 03/12/19 03/13/19 19:00 07:00 Intake Total 360 ml Balance 360 ml Other 360 ml # Voids 2 4 Objective HEENT: normocephalic, atraumatic Respiratory/Chest: chest wall non-tender, lungs clear Cardiovascular: normal peripheral pulses, normal rate Abdomen: normal bowel sounds, no organomegaly Extremities: no cyanosis Skin: no lesions Microbiology Date/Time Source Procedure Growth Status 03/12/19 14:20 Cerebral Spinal Fluid Gram Stain - Final Complete 03/12/19 14:20 Cerebral Spinal Fluid CSF Culture - Final Complete 03/12/19 14:20 Cerebral Spinal Fluid Gram Stain - Final Resulted 03/12/19 14:20 Cerebral Spinal Fluid CSF Culture - Preliminary NO GROWTH Resulted Laboratory Tests 03/12/19 14:00: CSF Glucose 64, CSF Total Protein 59H 03/12/19 14:20: CSF Glucose 64, CSF Total Protein 59H, CSF Appearance Clear, CSF Color Colorless , CSF WBC 2, CSF RBC 12, CSF Neutrophils % , CSF Lymphocytes % , CSF Monocytes % , CSF Crenated Cells , CSF Herpes Simplex II DNA (PCR) [Pending], CSF Varicella-Zoster IgM Antibody [Pending], Herpes Simplex Virus I DNA (PCR) [ Pending] 03/13/19 05:35: White Blood Count 7.2, Red Blood Count 3.03L, Hemoglobin 8.8L, Hematocrit 27.1L , Mean Corpuscular Volume 89, Mean Corpuscular Hemoglobin 29.1, Mean Corpuscular Hemoglobin Concent 32.6, Red Cell Distribution Width 13.3, Platelet Count 132#L, Mean Platelet Volume 8.8, Neutrophils (%) (Auto) 53.7, Lymphocytes (%) (Auto) 25.6, Monocytes (%) (Auto) 15.7H, Eosinophils (%) (Auto) 3.8H, Basophils (%) (Auto) 1.2, Sodium Level 141, Potassium Level 3.6, Chloride Level 106, Carbon Dioxide Level 28, Anion Gap 7, Blood Urea Nitrogen 13, Creatinine 0.5L, Estimat Glomerular Filtration Rate , Glucose Level 98, Calcium Level 7.9L , Total Bilirubin 0.2, Aspartate Amino Transf (AST/SGOT) 73H, Alanine Aminotransferase (ALT/SGPT) 25, Alkaline Phosphatase 81, Total Creatine Kinase 90, Total Protein 6.6, Albumin 2.5L, Globulin 4.1, Albumin/Globulin Ratio 0.6L Current Medications Medications (Trade) Dose Ordered Sig/Lisette Route PRN Reason Start Time Stop Time Status Last Admin Dose Admin Acetaminophen (Tylenol) 650 mg Q4H PRN ORAL fever (temp>100.5F) 03/07/19 15:15 04/06/19 15:14 Ceftriaxone Sodium 2 gm/ Dextrose 55 ml @ 110 mls/hr Q24H IVPB 03/08/19 03:00 03/15/19 02:59 03/13/19 03:22 Morphine Sulfate (Morphine Sulfate) 2 mg Q4H PRN IVP Moderate Pain (Pain Scale 4-6) 03/07/19 15:15 03/14/19 15:14 Nitroglycerin (Ntg) 0.4 mg Q5M PRN SL Prn Chest Pain 03/07/19 15:15 04/06/19 15:14 Ondansetron HCl (Zofran) 4 mg Q6H PRN IVP Nausea & Vomiting 03/07/19 15:15 04/06/19 15:14 03/08/19 16:07 Polyethylene Glycol (Miralax) 17 gm DAILYPRN PRN ORAL Constipation 03/07/19 15:15 04/06/19 15:14 Temazepam (Restoril) 15 mg HSPRN PRN ORAL Insomnia 03/07/19 20:00 03/14/19 19:59 Jenny Wilkerson MD March 13, 2019 11:24
[2019-03-13 12:00] VITALS: BP 146/73
--- NOTE | 2019-03-13 13:39 | Hematology/Onc Progress Note ---
Assessment/Plan Assessment/Plan Assessment and Recs: # Thrombocytopenia - potential causes multifactorial, evaluate liver and viral etiologies to begin, also could be related to underlying medications patient has received such as heparin (HAS BEEN DISCONTINUED), also at this time on abx, cefe and vanc, monitor abx closely, ALSO SMEAR reviewed --> Hep panel and HIV are negative --> CT of the a/p reviewed,and no cirrhosis/hsm reviewed, no predominant LAD, lymphadenopathy noted, no mass --> Peripheral smear has been reviewed, no blasts noted, 1% myelocytes, 1% metamyelocytes noted as well --> abx and other meds have been reviewed --> Transfuse if Plt < 20k and fever, or if Plt < 10k without fever --> heparin has been discontinued sq --> HIT Ab has been ordered --> has markedly improved trend 20k-->21k-->74k-->132k --> A BONE MARROW BIOPSY has been ordered to r/o malignancy/leukemia (for thrombocytopenia) dw rn --> if to be discharged, then patient to followup in outpatient clinic # Anemia of chronic disease due to underlying chronic medical issues, multifactorial --> CONSIDER w/u if hgb lower w/u --> No evidence of hemolysis is noted, peripheral smear has been reviewed. --> Hgb goal >7. Transfuse prn. --> Epogen or iron at this time is not particularly indicated --> ferritin is 1345 # Urinary tract infection --> blood and urine culture pending --> on abx as per id, vanc/cefepime # Dehydration --> IVF has been started # Lower extremity weakness Differential diagnosis include was not limited to Guillain-Pike v uti v generalized weakness --> LP done by neuro The timing of this note does not necessarily reflect the time of the patient was seen. Greatly appreciate consultation! Subjective Cardiovascular: Denies: no symptoms, chest pain, edema, irregular heart rate, lightheadedness, palpitations, syncope, other Respiratory: Denies: no symptoms, cough, shortness of breath, SOB with excertion, SOB at rest, sputum, wheezing, other Gastrointestinal/Abdominal: Denies: no symptoms, abdomen distended, abdominal pain, black stools, tarry stools, blood in stool, constipated, diarrhea, difficulty swallowing, nausea, poor appetite, poor fluid intake, rectal bleeding , vomiting, other Genitourinary: Denies: no symptoms, burning, discharge, frequency, flank pain, hematuria, incontinence, pain, urgency, other Neurologic/Psychiatric: Denies: no symptoms, anxiety, depressed, emotional problems, headache, numbness, paresthesia, pre-existing deficit, seizure, tingling, tremors, weakness, other Endocrine: Denies: no symptoms, excessive sweating, flushing, intolerance to cold, intolerance to heat, increased hunger, increased thirst, increased urine, unexplained weight gain, unexplained weight loss, other Hematologic/Lymphatic: Denies: no symptoms, anemia, easy bleeding, easy bruising, adenopathy, other Allergies: Coded Allergies: No Known Allergies (Unverified , 03/07/19) Subjective 03/10: platelets are stable, no events, no fevers noted, have placed orders for bone marrow biopsy 03/11: discussed her case with granddaughter, have placed biopsy order for tomorrow and dw path 03/12: no events noted, to get a bone marrow biopsy, no f/c 03/13: sick euthryoid, no fevers or chills noted, seen by endo, lp was done Objective Objective Current Medications Medications (Trade) Dose Ordered Sig/Lisette Route PRN Reason Start Time Stop Time Status Last Admin Dose Admin Acetaminophen (Tylenol) 650 mg Q4H PRN ORAL fever (temp>100.5F) 03/07/19 15:15 04/06/19 15:14 Ceftriaxone Sodium 2 gm/ Dextrose 55 ml @ 110 mls/hr Q24H IVPB 03/08/19 03:00 03/15/19 02:59 03/13/19 03:22 Morphine Sulfate (Morphine Sulfate) 2 mg Q4H PRN IVP Moderate Pain (Pain Scale 4-6) 03/07/19 15:15 03/14/19 15:14 Nitroglycerin (Ntg) 0.4 mg Q5M PRN SL Prn Chest Pain 03/07/19 15:15 04/06/19 15:14 Ondansetron HCl (Zofran) 4 mg Q6H PRN IVP Nausea & Vomiting 03/07/19 15:15 04/06/19 15:14 03/08/19 16:07 Polyethylene Glycol (Miralax) 17 gm DAILYPRN PRN ORAL Constipation 03/07/19 15:15 04/06/19 15:14 03/13/19 11:17 Temazepam (Restoril) 15 mg HSPRN PRN ORAL Insomnia 03/07/19 20:00 03/14/19 19:59 Last 24 Hour Vital Signs Date Time Temp Pulse Resp B/P (MAP) Pulse Ox O2 Delivery O2 Flow Rate FiO2 03/13/19 12:00 98.7 70 17 146/73 (97) 97 03/13/19 09:04 75 18 96 Room Air 21 03/13/19 09:00 Room Air 03/13/19 08:00 98.7 90 20 110/57 (74) 96 03/13/19 04:00 97.3 88 20 112/64 (80) 96 03/13/19 00:00 98.8 86 18 117/62 (80) 95 03/12/19 21:00 Room Air 03/12/19 20:00 98.0 86 20 104/63 (77) 99 03/12/19 19:54 73 18 96 Room Air 21 03/12/19 16:00 97.5 72 19 104/62 (76) 100 03/12/19 14:44 76 15 100/62 (75) 97 03/12/19 12:00 97.2 82 14 107/52 (70) 94 03/12/19 10:19 Room Air 03/12/19 09:00 Room Air 03/12/19 08:15 75 16 96 Room Air 21 03/12/19 08:00 97.9 90 14 119/65 (83) 95 03/12/19 04:00 98.4 81 16 123/69 (87) 97 03/12/19 00:00 98.4 77 16 121/55 (77) 95 03/11/19 21:02 84 16 94 Room Air 21 03/11/19 21:00 Room Air 03/11/19 20:00 98.5 94 18 132/63 (86) 95 03/11/19 15:38 98.0 79 18 138/69 (92) 97 Intake and Output 03/12/19 03/13/19 19:00 07:00 Intake Total 360 ml Balance 360 ml Other 360 ml # Voids 2 4 Labs Test 03/10/19 20:21 5/27/19 06:45 03/12/19 07:23 03/12/19 14:00 Fibrinogen 130 mg/dL (200-400) Iron Level 106 ug/dL (50-175) Total Iron Binding Capacity 253 ug/dL (250-450) Percent Iron Saturation 42 % (15-50) Unsaturated Iron Binding 147 ug/dL (112-346) Ferritin 1345 NG/ML (8-388) Vitamin B12 Level 1392 PG/ML (193-986) Folate 10.9 NG/ML (8.6-58.9) Thyroid Stimulating Hormone (TSH) 9.146 uiU/mL (0.358-3.740) 8.613 uiU/mL (0.358-3.740) Immunoglobulin G 1551 mg/dL (700-1600) White Blood Count 5.8 K/UL (4.8-10.8) 5.7 K/UL (4.8-10.8) Red Blood Count 3.20 M/UL (4.20-5.40) 3.11 M/UL (4.20-5.40) Hemoglobin 9.5 G/DL (12.0-16.0) 9.1 G/DL (12.0-16.0) Hematocrit 28.2 % (37.0-47.0) 27.7 % (37.0-47.0) Mean Corpuscular Volume 88 FL (80-99) 89 FL (80-99) Mean Corpuscular Hemoglobin 29.9 PG (27.0-31.0) 29.4 PG (27.0-31.0) Mean Corpuscular Hemoglobin Concent 33.9 G/DL (32.0-36.0) 33.0 G/DL (32.0-36.0) Red Cell Distribution Width 12.9 % (11.6-14.8) 12.6 % (11.6-14.8) Platelet Count 21 K/UL (150-450) 74 K/UL (150-450) Mean Platelet Volume 10.7 FL (6.5-10.1) 10.3 FL (6.5-10.1) Neutrophils (%) (Auto) % (45.0-75.0) % (45.0-75.0) Lymphocytes (%) (Auto) % (20.0-45.0) % (20.0-45.0) Monocytes (%) (Auto) % (1.0-10.0) % (1.0-10.0) Eosinophils (%) (Auto) % (0.0-3.0) % (0.0-3.0) Basophils (%) (Auto) % (0.0-2.0) % (0.0-2.0) Differential Total Cells Counted 100 100 Neutrophils % (Manual) 37 % (45-75) 43 % (45-75) Lymphocytes % (Manual) 39 % (20-45) 38 % (20-45) Monocytes % (Manual) 22 % (1-10) 17 % (1-10) Eosinophils % (Manual) 2 % (0-3) 2 % (0-3) Basophils % (Manual) 0 % (0-2) 0 % (0-2) Band Neutrophils 0 % (0-8) 0 % (0-8) Reactive Lymphocytes Occasional Platelet Estimate Decreased Decreased Platelet Morphology Normal Normal Polychromasia 1+ Sodium Level 141 MMOL/L (136-145) 142 MMOL/L (136-145) Potassium Level 3.9 MMOL/L (3.5-5.1) 3.5 MMOL/L (3.5-5.1) Chloride Level 107 MMOL/L (98-107) 108 MMOL/L (98-107) Carbon Dioxide Level 28 MMOL/L (21-32) 29 MMOL/L (21-32) Anion Gap 6 mmol/L (5-15) 5 mmol/L (5-15) Blood Urea Nitrogen 16 mg/dL (7-18) 12 mg/dL (7-18) Creatinine 0.6 MG/DL (0.55-1.30) 0.6 MG/DL (0.55-1.30) Estimat Glomerular Filtration Rate mL/min (>60) mL/min (>60) Glucose Level 95 MG/DL (74-106) 93 MG/DL (74-106) Calcium Level 8.1 MG/DL (8.5-10.1) 8.1 MG/DL (8.5-10.1) Free Thyroxine 1.59 NG/DL (0.76-1.46) Thyroid Peroxidase Antibodies 8 IU/mL (0-34) Hypochromasia 1+ CSF Glucose 64 mg/dL (40-70) CSF Total Protein 59 MG/DL (15-45) Test 03/12/19 14:20 03/13/19 05:35 CSF Appearance Clear (Clear) CSF Color Colorless (Colorless) CSF WBC 2 /CU MM (0-5) CSF RBC 12 /CU MM CSF Neutrophils % % CSF Lymphocytes % % CSF Monocytes % % CSF Crenated Cells % CSF Glucose 64 mg/dL (40-70) CSF Total Protein 59 MG/DL (15-45) White Blood Count 7.2 K/UL (4.8-10.8) Red Blood Count 3.03 M/UL (4.20-5.40) Hemoglobin 8.8 G/DL (12.0-16.0) Hematocrit 27.1 % (37.0-47.0) Mean Corpuscular Volume 89 FL (80-99) Mean Corpuscular Hemoglobin 29.1 PG (27.0-31.0) Mean Corpuscular Hemoglobin Concent 32.6 G/DL (32.0-36.0) Red Cell Distribution Width 13.3 % (11.6-14.8) Platelet Count 132 K/UL (150-450) Mean Platelet Volume 8.8 FL (6.5-10.1) Neutrophils (%) (Auto) 53.7 % (45.0-75.0) Lymphocytes (%) (Auto) 25.6 % (20.0-45.0) Monocytes (%) (Auto) 15.7 % (1.0-10.0) Eosinophils (%) (Auto) 3.8 % (0.0-3.0) Basophils (%) (Auto) 1.2 % (0.0-2.0) Sodium Level 141 MMOL/L (136-145) Potassium Level 3.6 MMOL/L (3.5-5.1) Chloride Level 106 MMOL/L (98-107) Carbon Dioxide Level 28 MMOL/L (21-32) Anion Gap 7 mmol/L (5-15) Blood Urea Nitrogen 13 mg/dL (7-18) Creatinine 0.5 MG/DL (0.55-1.30) Estimat Glomerular Filtration Rate mL/min (>60) Glucose Level 98 MG/DL (74-106) Calcium Level 7.9 MG/DL (8.5-10.1) Total Bilirubin 0.2 MG/DL (0.2-1.0) Aspartate Amino Transf (AST/SGOT) 73 U/L (15-37) Alanine Aminotransferase (ALT/SGPT) 25 U/L (12-78) Alkaline Phosphatase 81 U/L (46-116) Total Creatine Kinase 90 U/L (26-308) Total Protein 6.6 G/DL (6.4-8.2) Albumin 2.5 G/DL (3.4-5.0) Globulin 4.1 g/dL Albumin/Globulin Ratio 0.6 (1.0-2.7) Micro Microbiology Date/Time Source Procedure Growth Status 03/12/19 14:20 Cerebral Spinal Fluid Gram Stain - Final Complete 03/12/19 14:20 Cerebral Spinal Fluid CSF Culture - Final Complete 03/12/19 14:20 Cerebral Spinal Fluid Gram Stain - Final Resulted 03/12/19 14:20 Cerebral Spinal Fluid CSF Culture - Preliminary NO GROWTH Resulted Height (Feet): 5 Height (Inches): 1.00 Weight (Pounds): 139 Objective Gen: alert, GCS 15, non-toxic, obese, Chronically Ill Head: normocephalic Eyes: bilateral eye PERRL ENT: normal ENT inspection, normal voice Neck: limited range of motion Respiratory: lungs clear, normal breath sounds Cardiovascular: normal inspection, regular rate, rhythm Gastrointestinal: normal inspection, normal bowel sounds,nt, nd Neurologic: normal inspection, alert, oriented x3 Nicholas Coffey MD March 13, 2019 13:39
--- NOTE | 2019-03-13 13:46 | General Progress Note ---
Assessment/Plan Problem List: (1) Thrombocytopenia ICD Codes: D69.6 - Thrombocytopenia, unspecified SNOMED: 127385326 (2) Urinary tract infection ICD Codes: N39.0 - Urinary tract infection, site not specified SNOMED: 36472751 (3) Bilateral leg weakness ICD Codes: R29.898 - Other symptoms and signs involving the musculoskeletal system SNOMED: 7351574 (4) Febrile illness, acute ICD Codes: R50.9 - Fever, unspecified SNOMED: 579923640 (5) Dehydration ICD Codes: E86.0 - Dehydration SNOMED: 85170716 Status: stable, progressing Assessment/Plan: pt diet abx ivf heme eval cbc bmp am dc to [facility] if clear Subjective Allergies: Coded Allergies: No Known Allergies (Unverified , 03/07/19) All Systems: reviewed and negative except above Subjective sleepy calm Objective Last 24 Hour Vital Signs Date Time Temp Pulse Resp B/P (MAP) Pulse Ox O2 Delivery O2 Flow Rate FiO2 03/13/19 12:00 98.7 70 17 146/73 (97) 97 03/13/19 09:04 75 18 96 Room Air 21 03/13/19 09:00 Room Air 03/13/19 08:00 98.7 90 20 110/57 (74) 96 03/13/19 04:00 97.3 88 20 112/64 (80) 96 03/13/19 00:00 98.8 86 18 117/62 (80) 95 03/12/19 21:00 Room Air 03/12/19 20:00 98.0 86 20 104/63 (77) 99 03/12/19 19:54 73 18 96 Room Air 21 03/12/19 16:00 97.5 72 19 104/62 (76) 100 03/12/19 14:44 76 15 100/62 (75) 97 Intake and Output 03/12/19 03/13/19 19:00 07:00 Intake Total 360 ml Balance 360 ml Other 360 ml # Voids 2 4 Laboratory Tests 03/12/19 14:00: CSF Glucose 64, CSF Total Protein 59H 03/12/19 14:20: CSF Glucose 64, CSF Total Protein 59H, CSF Appearance Clear, CSF Color Colorless , CSF WBC 2, CSF RBC 12, CSF Neutrophils % , CSF Lymphocytes % , CSF Monocytes % , CSF Crenated Cells , CSF Herpes Simplex II DNA (PCR) [Pending], CSF Varicella-Zoster IgM Antibody [Pending], Herpes Simplex Virus I DNA (PCR) [ Pending] 03/13/19 05:35: White Blood Count 7.2, Red Blood Count 3.03L, Hemoglobin 8.8L, Hematocrit 27.1L , Mean Corpuscular Volume 89, Mean Corpuscular Hemoglobin 29.1, Mean Corpuscular Hemoglobin Concent 32.6, Red Cell Distribution Width 13.3, Platelet Count 132#L, Mean Platelet Volume 8.8, Neutrophils (%) (Auto) 53.7, Lymphocytes (%) (Auto) 25.6, Monocytes (%) (Auto) 15.7H, Eosinophils (%) (Auto) 3.8H, Basophils (%) (Auto) 1.2, Sodium Level 141, Potassium Level 3.6, Chloride Level 106, Carbon Dioxide Level 28, Anion Gap 7, Blood Urea Nitrogen 13, Creatinine 0.5L, Estimat Glomerular Filtration Rate , Glucose Level 98, Calcium Level 7.9L , Total Bilirubin 0.2, Aspartate Amino Transf (AST/SGOT) 73H, Alanine Aminotransferase (ALT/SGPT) 25, Alkaline Phosphatase 81, Total Creatine Kinase 90, Total Protein 6.6, Albumin 2.5L, Globulin 4.1, Albumin/Globulin Ratio 0.6L Height (Feet): 5 Height (Inches): 1.00 Weight (Pounds): 139 General Appearance: lethargic EENT: normal ENT inspection Neck: normal alignment Cardiovascular: normal peripheral pulses, normal rate, regular rhythm Respiratory/Chest: chest wall non-tender, lungs clear, normal breath sounds Abdomen: normal bowel sounds, non tender, soft Extremities: normal inspection Edema: no edema noted Arm (L), no edema noted Arm (R), no edema noted Leg (L), no edema noted Leg (R), no edema noted Pedal (L), no edema noted Pedal (R), no edema noted Generalized Neurologic: motor weakness Skin: normal pigmentation, warm/dry Jason Castanon Hermes BELLO March 13, 2019 13:46
--- NOTE | 2019-03-13 15:11 | Infectious Diseases Prog Note ---
Assessment/Plan Assessment/Plan Assessment: Febrile illness (not currently febrile)- now severe thrombocytopenia - ?Dengue LE weakness- r/o GBS, r/o ZIka, dengue (given recent travel to [facility]) -03/12 SP LP- OP 17cm H20 Wbc 2, prot 59, glucose 64; cx stain rare WBC, no organisms seen; cx NTD -MRI brain wo: Abnormal T2 hyperintense signal within cerebral sulci bilaterally predominating in the posterior part of the cerebrum. This is nonspecific, but the main concern would be an occult subarachnoid bleed. Differential diagnosis includes meningitis, leptomeningeal carcinomatosis or thickening, artifact related to elevated blood pool to CSF ratio. There is no evidence of diffusion restriction i.e. acute stroke to account for the finding. Further evaluation with gadolinium-enhanced MRI is recommended. Clinical correlation also needed. Noncontrast CT of the head is also recommended.Sinus disease. Right mastoiditis. -MRI t/ L spine w/wo: No evidence of compression of the spinal cord or cauda equina. No intrinsic cord abnormality, edema or other neuropathy identified. Moderate degenerative changes of the mid to lower lumbar spine characterized by degenerative disc disease and facet arthropathy. Disease is most severe at L4-5 which shows evidence of central spinal stenosis and narrowing of the lateral recess and moderate right foraminal stenosis. L3-4 Central stenosis also demonstrated. Other incidental findings as above. -CT: c/abd/p w/: No acute findings identified within the chest abdomen or pelvis. Large hiatal hernia. Cardiomegaly and arterial vascular disease. Moderate fatty liver. Prominence of the urinary bladder wall. Correlate for cystitis. Villalobos catheter in good position.Degenerative changes of the spine. Probable right renal cyst -CXR: No acute disease -Bcx Neg -influenza sc, HIV sc, RPR, Crag neg -WNV IgG +, IgM neg- probable prior WNV vs cross reaction ( Positive for West Nile Virus IgG Antibody. Serological cross-reactivity among flaviviruses (e.g. Emmanuel encephalitis and dengue viruses) is common. Cross-reactivity has been noted in specimens containing rheumatoid factor and antibody to Cytomegalovirus (CMV) and Lukasz-Pike Virus (EBV). Severe thrombocytopenia; resolving -03/13 SP bone marrow biopsy Elevated AST; imporving Mild elevation CPK, SP Chronic LE weakness- prior workup many years ago but unknown results- able to ambulate w/ walker- but now weakness worse, moving fingers but not able to raise legs Plan: -D/c empiric Ceftriaxone #7 -03/08 SP Vancomycin #2 -03/07 SP Cefepime #1 -F/u CSF culture, VDRL, Cocci, CrAg, Dengue, Zika, Chikunguya PCR, oligoclonal bands, MBP, WNV ab -f/u HIV VL, Cocci ab, Zika/Dengue/Chikungunya serology -f/u cx -Monitor CBC/CMP, temperatures -Neuro eval -heme onc f/u Subjective Allergies: Coded Allergies: No Known Allergies (Unverified , 03/07/19) Subjective afebrile no leukocytosis Objective Vital Signs Last 24 Hour Vital Signs Date Time Temp Pulse Resp B/P (MAP) Pulse Ox O2 Delivery O2 Flow Rate FiO2 03/13/19 12:00 98.7 70 17 146/73 (97) 97 03/13/19 09:04 75 18 96 Room Air 21 03/13/19 09:00 Room Air 03/13/19 08:00 98.7 90 20 110/57 (74) 96 03/13/19 04:00 97.3 88 20 112/64 (80) 96 03/13/19 00:00 98.8 86 18 117/62 (80) 95 03/12/19 21:00 Room Air 03/12/19 20:00 98.0 86 20 104/63 (77) 99 03/12/19 19:54 73 18 96 Room Air 21 03/12/19 16:00 97.5 72 19 104/62 (76) 100 Height (Feet): 5 Height (Inches): 1.00 Weight (Pounds): 139 Objective General Appearance: WD/WN Lines, tubes and drains: peripheral HEENT: normocephalic, anicteric Neck: non-tender, supple, limited range of motion Respiratory/Chest: lungs clear Cardiovascular/Chest: normal rate Abdomen: normal bowel sounds Neuro: unable to elicit knee and ankle reflex, patient did have R>L leg spasticity, upward babinski on L foot, preserved sensation, no clonus Microbiology Date/Time Source Procedure Growth Status 03/12/19 14:20 Cerebral Spinal Fluid Gram Stain - Final Complete 03/12/19 14:20 Cerebral Spinal Fluid CSF Culture - Final Complete 03/12/19 14:20 Cerebral Spinal Fluid Gram Stain - Final Resulted 03/12/19 14:20 Cerebral Spinal Fluid CSF Culture - Preliminary NO GROWTH Resulted Laboratory Tests Test 03/13/19 05:35 White Blood Count 7.2 K/UL (4.8-10.8) Red Blood Count 3.03 M/UL (4.20-5.40) L Hemoglobin 8.8 G/DL (12.0-16.0) L Hematocrit 27.1 % (37.0-47.0) L Mean Corpuscular Volume 89 FL (80-99) Mean Corpuscular Hemoglobin 29.1 PG (27.0-31.0) Mean Corpuscular Hemoglobin Concent 32.6 G/DL (32.0-36.0) Red Cell Distribution Width 13.3 % (11.6-14.8) Platelet Count 132 K/UL (150-450) #L Mean Platelet Volume 8.8 FL (6.5-10.1) Neutrophils (%) (Auto) 53.7 % (45.0-75.0) Lymphocytes (%) (Auto) 25.6 % (20.0-45.0) Monocytes (%) (Auto) 15.7 % (1.0-10.0) H Eosinophils (%) (Auto) 3.8 % (0.0-3.0) H Basophils (%) (Auto) 1.2 % (0.0-2.0) Sodium Level 141 MMOL/L (136-145) Potassium Level 3.6 MMOL/L (3.5-5.1) Chloride Level 106 MMOL/L (98-107) Carbon Dioxide Level 28 MMOL/L (21-32) Anion Gap 7 mmol/L (5-15) Blood Urea Nitrogen 13 mg/dL (7-18) Creatinine 0.5 MG/DL (0.55-1.30) L Estimat Glomerular Filtration Rate mL/min (>60) Glucose Level 98 MG/DL (74-106) Calcium Level 7.9 MG/DL (8.5-10.1) L Total Bilirubin 0.2 MG/DL (0.2-1.0) Aspartate Amino Transf (AST/SGOT) 73 U/L (15-37) H Alanine Aminotransferase (ALT/SGPT) 25 U/L (12-78) Alkaline Phosphatase 81 U/L (46-116) Total Creatine Kinase 90 U/L (26-308) Total Protein 6.6 G/DL (6.4-8.2) Albumin 2.5 G/DL (3.4-5.0) L Globulin 4.1 g/dL Albumin/Globulin Ratio 0.6 (1.0-2.7) L Current Medications Medications (Trade) Dose Ordered Sig/Lisette Route PRN Reason Start Time Stop Time Status Last Admin Dose Admin Acetaminophen (Tylenol) 650 mg Q4H PRN ORAL fever (temp>100.5F) 03/07/19 15:15 04/06/19 15:14 Ceftriaxone Sodium 2 gm/ Dextrose 55 ml @ 110 mls/hr Q24H IVPB 03/08/19 03:00 03/15/19 02:59 03/13/19 03:22 Morphine Sulfate (Morphine Sulfate) 2 mg Q4H PRN IVP Moderate Pain (Pain Scale 4-6) 03/07/19 15:15 03/14/19 15:14 Nitroglycerin (Ntg) 0.4 mg Q5M PRN SL Prn Chest Pain 03/07/19 15:15 04/06/19 15:14 Ondansetron HCl (Zofran) 4 mg Q6H PRN IVP Nausea & Vomiting 03/07/19 15:15 04/06/19 15:14 03/08/19 16:07 Polyethylene Glycol (Miralax) 17 gm DAILYPRN PRN ORAL Constipation 03/07/19 15:15 04/06/19 15:14 03/13/19 11:17 Temazepam (Restoril) 15 mg HSPRN PRN ORAL Insomnia 03/07/19 20:00 03/14/19 19:59 Olga Lidia Renee M.D. March 13, 2019 15:11
--- NOTE | 2019-03-13 15:18 | NUR ---
*-* INSURANCE -* UPDATED CLINICALS HAVE BEENF AXED TO: [facility] NCM:REJI P:[phone] F:[phone]
--- NOTE | 2019-03-13 15:32 | NUR ---
NURSE NOTES: RECEIVED ORDER FROM DR NAIK, CLEARED FOR DISCHARGE AND ASK NEUROLOGY IF CLEARED TO BE DISCHARGED.
--- NOTE | 2019-03-13 15:41 | NUR ---
NURSE NOTES: LEFT MESSAGE FOR INSPECTOR OPEN DIE RAJIV ORTIZ (NEUROLOGY) REGARDING CLEARANCE FOR DISCHARGE.
[2019-03-13 16:00] VITALS: BP 112/64
[2019-03-13] MEDS ORDERED: MIRALAX17 G2 ORAL (16:13)
[2019-03-13] MEDS ORDERED: ACETAMINOPHEN500 M5 ORAL (16:14)
[2019-03-13] MEDS ORDERED: RESTORIL15 MG ORAL (16:14)
[2019-03-13] MEDS ORDERED: NITROSTAT0.4 M1 SL (16:16)
--- NOTE | 2019-03-13 16:48 | NUR ---
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 THROMBOCYTOPENIA . DEHYDRATION VS: BP 146/73, P 70, T 97.3, RR 18, SpO2 97 RBC 3.03, H&H 8.8/27.1,CR 0.5 IS: CEFTRIAXONE 55ml IVPB MED/SURG STATUS
--- NOTE | 2019-03-13 19:32 | NUR ---
HAND-OFF: Report given to Hiram FLETCHER RN.
--- NOTE | 2019-03-13 19:41 | NUR ---
NURSE NOTES: Patient awake in bed, no complaints of pain at this time, not in respiratory distress. Instructed the use of call light. Call light and needs in reach. Bed in lowest position, lock engaged and alarm on. Will continue to monitor. Family at bedside.
[2019-03-13 20:00] VITALS: BP 119/70
--- NOTE | 2019-03-13 23:53 | Neurology Progress Note ---
Interim History Interim History ROS Limited/Unobtainable: No Complaints: LE Weakness Events: CSF unremarkable, afebrile, normalizing PLT, WBC Interim History This visit was performed on March 13, 2019 Review of Systems All Systems: reviewed and negative except above Objective Physical Exam Last Vital Signs Date Time Temp Pulse Resp B/P (MAP) Pulse Ox O2 Delivery O2 Flow Rate FiO2 03/13/19 21:00 Room Air 03/13/19 20:00 99.0 92 20 119/70 (86) 98 03/13/19 19:54 21 Laboratory Tests Test 03/13/19 05:35 White Blood Count 7.2 K/UL (4.8-10.8) Red Blood Count 3.03 M/UL (4.20-5.40) L Hemoglobin 8.8 G/DL (12.0-16.0) L Hematocrit 27.1 % (37.0-47.0) L Mean Corpuscular Volume 89 FL (80-99) Mean Corpuscular Hemoglobin 29.1 PG (27.0-31.0) Mean Corpuscular Hemoglobin Concent 32.6 G/DL (32.0-36.0) Red Cell Distribution Width 13.3 % (11.6-14.8) Platelet Count 132 K/UL (150-450) #L Mean Platelet Volume 8.8 FL (6.5-10.1) Neutrophils (%) (Auto) 53.7 % (45.0-75.0) Lymphocytes (%) (Auto) 25.6 % (20.0-45.0) Monocytes (%) (Auto) 15.7 % (1.0-10.0) H Eosinophils (%) (Auto) 3.8 % (0.0-3.0) H Basophils (%) (Auto) 1.2 % (0.0-2.0) Sodium Level 141 MMOL/L (136-145) Potassium Level 3.6 MMOL/L (3.5-5.1) Chloride Level 106 MMOL/L (98-107) Carbon Dioxide Level 28 MMOL/L (21-32) Anion Gap 7 mmol/L (5-15) Blood Urea Nitrogen 13 mg/dL (7-18) Creatinine 0.5 MG/DL (0.55-1.30) L Estimat Glomerular Filtration Rate mL/min (>60) Glucose Level 98 MG/DL (74-106) Calcium Level 7.9 MG/DL (8.5-10.1) L Total Bilirubin 0.2 MG/DL (0.2-1.0) Aspartate Amino Transf (AST/SGOT) 73 U/L (15-37) H Alanine Aminotransferase (ALT/SGPT) 25 U/L (12-78) Alkaline Phosphatase 81 U/L (46-116) Total Creatine Kinase 90 U/L (26-308) Total Protein 6.6 G/DL (6.4-8.2) Albumin 2.5 G/DL (3.4-5.0) L Globulin 4.1 g/dL Albumin/Globulin Ratio 0.6 (1.0-2.7) L General: well developed, well nourished, no acute distress Head: normocophalic, atraumatic Neck: no rigidity EENT: benign Neurologic Exam Mental Status: awake, alert, oriented x4, normal cognition, good mathematical skills, normal recent memory, normal remote memory, preserved visuospatial function Speech: normal speech, no dysarthia Language: normal language, no aphasia Cranial Nerve II: fundus normal, visual noriega, no papilledema Cranial Nerves III, IV, : PERRLA, EOMI, pupils Cranial Nerve V: normal facial sensations, temporales function normal, masseters function normal, pterygoids function normal Cranial Nerve VII: no facial asymmetry, normal facial expressions Cranial Nerve VIII: normal hearing, no nystagmus Cranial Nerve IX: normal palate elevation, gag response Cranial Nerve X: no voice hoarseness Cranial Nerve XI: SCM symmetric, trapezii function normal Cranial Nerve XII: tongue midline, no tongue atrophy/fasciculations Motor System: normal muscle tone, no involuntary movement, no muscle wasting Sensory: normal pinprick, normal light touch Coordination: normal finger to nose bilaterally Deep Tendon Reflexes: 1+ bicep (L), 1+ bicep (R), 1+ tricep (L), 1+ tricep (R) , 1+ brachioradialis (L), 1+ brachioradialis (R), 1+ knee (L), 1+ knee (R), 1+ ankle (L), 1+ ankle (R) Reflexes: flexor plantar (L), flexor plantar (R); extensor plantar (L), extensor plantar (R) Objective LLE 2/5 RLE 3/5 weakest at hip flexors UEs full strength and AG FC x 4 Non focal on exam with generalized weakness. No facial weakness or tongue deviation Speech is in [place] but all normal. Impression/Recommendations Problems: (1) Thrombocytopenia Assessment & Plan: Heme/ Onc workup (2) Dehydration (3) Urinary tract infection (4) Bilateral leg weakness Assessment & Plan: MRI thoracic spine: Bone marrow signal and alignment are normal. The height of the vertebral bodies appears normal. There is no evidence of a compression fracture. There is no evidence of a disc herniation with normal appearance of the intervertebral discs. The spinal canal is widely patent at all levels within the thoracic spine. The spinal cord is normal in appearance. There is no cord edema, mass or myelomalacia. No epidural collection or other abnormal fluid collection identified. Mild hypertrophic spurring involving the thoracic facets noted at multiple levels. There is no evidence of significant foraminal stenosis or cord compression. No abnormal enhancement is identified. T7 vertebral hemangioma noted. There is a large hiatal hernia. Trace basilar pleural effusions are present. MRI lumbar spine: Bone marrow signal is normal. There is no evidence of bone marrow replacement, contusion or edema, fracture. The visualized part of the distal spinal cord is normal in appearance. Conus medullaris is seen at about lower part of L1 vertebra. There is no abnormal cord or nerve root enhancement. There are [id number] degenerative changes which will be described. The L1-2 disc is normal in appearance. There is no stenosis of the canal or foramen. L2-3 shows mild hypertrophy of the lumbar facets. No central or foraminal stenosis demonstrated. L3-4 shows mild central stenosis and narrowing of the lateral recesses due to facet arthropathy. No foraminal stenosis appreciated. L4-5 demonstrates mild central stenosis, narrowing of the lateral recess due to facet arthropathy and redundancy of ligamentum flavum. There is also mild concentric disc bulge associated moderate narrowing of the intervertebral disc and desiccation of the disc with anterolisthesis mild in degree at this level. Moderate right foraminal stenosis noted. L5-S1: The disc is normal in appearance. There is no central stenosis. Facet arthropathy noted. No significant foraminal stenosis appreciated. IMPRESSION: No evidence of compression of the spinal cord or cauda equina. No intrinsic cord abnormality, edema or other neuropathy identified. Moderate degenerative changes of the mid to lower lumbar spine characterized by degenerative disc disease and facet arthropathy. Disease is most severe at L4-5 which shows evidence of central spinal stenosis and narrowing of the lateral recess and moderate right foraminal stenosis. L3-4 Central stenosis also demonstrated. Other incidental findings as above. Please refer to the CT chest abdomen pelvis report as well No clear evidence for weakness demonstrated in patient clinically given normal cord signal on MRI The T2 FLAIR sequence demonstrates some areas of sulcal hyperintensity particularlyin the posterior aspects of both cerebral hemispheres but also within the rightfrontal region. The main concern is that there is an occult subarachnoid bleed. There is no mass effect or edema within the brain. The ventricles appear normal.Basal cisterns are normal. Flow voids are seen within the superior sagittal sinus,visualized part of the basilar artery and both ICA. There is no abnormal intra-axialor extra-axial fluid collection. As stated previously there is no diffusionrestriction. Empty sella is noted. There is a T2 hyperintense signal within the rightmastoid bone and some mucosal thickening within paranasal sinuses. IMPRESSION: Abnormal T2 hyperintense signal within cerebral sulci bilaterally predominating inthe posterior part of the cerebrum. T his is nonspecific, but the main concern would be an occult subarachnoid bleed. Differential diagnosis includes meningitis,leptomeningeal carcinomatosis or thickening, artifact related to elevated blood poolto CSF ratio. There is no evidence of diffusion restriction i.e. acute stroke toaccount for the finding. Further evaluation with gadolinium-enhanced MRI isrecommended. Clinical correlation also needed. Noncontrast CT of the head is alsorecommended. Sinus disease. Right mastoiditis. MRI w/ contrast NAD CSF culture without growth so far, pending , ID investigations pending Bone Marrow biopsy pending results for w/u of (5) Febrile illness, acute Assessment & Plan: LP results pending - CSF notable only for mildly elevated protein 56 No significant WBCs, cultures pending, encephalitis/ ID labs will require several days to weeks? DDX Encephalitis / Meningitis vs GBS Myalgia (unlikely) Status: stable, progressing Recommendations MRI Brain w/ contrast NAD CSF unremarkable with mildly elevated protein, HSV/VZV studies pending Symptoms unchanged but WBC normalized, normalizing platelets, and afebrile without any malaise Continue to track trend CBC/ CMP May follow up as outpatient with Heme/Onc and Neuro for ongoing investigations / pending results Stable for discharge from a neurological perspective . Karmen Mena N.P. March 13, 2019 23:53
[2019-03-14] VITALS: BP 124/67
[2019-03-14 04:00] VITALS: BP 117/66
[2019-03-14 06:33] LABS: BASOPHILS % (AUTO) 0.8 % (0.0-2.0); EOSINOPHILS % (AUTO) 3.6 % (0.0-3.0); HEMATOCRIT 26.1 % (37.0-47.0); HEMOGLOBIN 8.6 G/DL (12.0-16.0); LYMPHOCYTES % (AUTO) 33.9 % (20.0-45.0); MEAN CORPUSCULAR VOLUME 90 FL (80-99); NEUTROPHILS % (AUTO) 45.7 % (45.0-75.0); PLATELET COUNT 167 K/UL (150-450); RED CELL DISTRIBUTION WIDTH 13.7 % (11.6-14.8); WHITE BLOOD COUNT 7.3 K/UL (4.8-10.8)
[2019-03-14 06:40] LABS: ANION GAP 6 mmol/L (5-15); BLOOD UREA NITROGEN 10 mg/dL (7-18); CARBON DIOXIDE 28 MMOL/L (21-32); CHLORIDE 107 MMOL/L (98-107); CREATININE 0.5 MG/DL (0.55-1.30); POTASSIUM 4.1 MMOL/L (3.5-5.1); SODIUM 141 MMOL/L (136-145)
--- NOTE | 2019-03-14 06:51 | General Progress Note ---
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 SNOMED: 260396863 (2) Thrombocytopenia ICD Codes: D69.6 - Thrombocytopenia, unspecified SNOMED: 388385777 (3) Bilateral leg weakness ICD Codes: R29.898 - Other symptoms and signs involving the musculoskeletal system SNOMED: 8332159 (4) Urinary tract infection ICD Codes: N39.0 - Urinary tract infection, site not specified SNOMED: 08387848 (5) Dehydration ICD Codes: E86.0 - Dehydration SNOMED: 07234806 (6) Febrile illness, acute ICD Codes: R50.9 - Fever, unspecified SNOMED: 552643849 Status: stable, progressing Assessment/Plan: repeat TSH is elevated free T4 is elevated as well ATPO is negative patient was never treated with thyroxine => thryoid function is consistent with "sick euthyroidism" => no need to start treatment with thyroxine => repeat thyroid function as OP in 3-4 weeks Subjective Allergies: Coded Allergies: No Known Allergies (Unverified , 03/07/19) All Systems: reviewed and negative except above Subjective events noted Objective Last 24 Hour Vital Signs Date Time Temp Pulse Resp B/P (MAP) Pulse Ox O2 Delivery O2 Flow Rate FiO2 03/14/19 04:00 98.9 88 18 117/66 (83) 98 03/14/19 00:00 98.8 91 20 124/67 (86) 100 03/13/19 21:00 Room Air 03/13/19 20:00 99.0 92 20 119/70 (86) 98 03/13/19 19:54 92 18 98 Room Air 21 03/13/19 16:00 99.9 88 20 112/64 (80) 99 03/13/19 12:00 98.7 70 17 146/73 (97) 97 03/13/19 09:04 75 18 96 Room Air 21 03/13/19 09:00 Room Air 03/13/19 08:00 98.7 90 20 110/57 (74) 96 Intake and Output 03/13/19 03/14/19 19:00 07:00 Intake Total 360 ml Output Total 300 ml Balance 360 ml -300 ml Intake Oral 360 ml Output Urine Total 300 ml # Voids 3 Laboratory Tests 03/14/19 05:35: White Blood Count [Pending], Red Blood Count [Pending], Hemoglobin [Pending], Hematocrit [Pending], Mean Corpuscular Volume [Pending], Mean Corpuscular Hemoglobin [Pending], Mean Corpuscular Hemoglobin Concent [Pending], Red Cell Distribution Width [Pending], Platelet Count [Pending], Mean Platelet Volume [ Pending], Neutrophils (%) (Auto) [Pending], Lymphocytes (%) (Auto) [Pending], Monocytes (%) (Auto) [Pending], Eosinophils (%) (Auto) [Pending], Basophils (%) (Auto) [Pending], Sodium Level 141, Potassium Level 4.1, Chloride Level 107, Carbon Dioxide Level 28, Anion Gap 6, Blood Urea Nitrogen 10, Creatinine 0.5L, Estimat Glomerular Filtration Rate , Glucose Level 98, Calcium Level 8.0L Height (Feet): 5 Height (Inches): 1.00 Weight (Pounds): 139 General Appearance: no apparent distress Neck: normal alignment Cardiovascular: normal rate Respiratory/Chest: lungs clear Abdomen: normal bowel sounds Pelvis: normal external exam Objective Current Medications Medications (Trade) Dose Ordered Sig/Lisette Route PRN Reason Start Time Stop Time Status Last Admin Dose Admin Acetaminophen (Tylenol) 650 mg Q4H PRN ORAL fever (temp>100.5F) 03/07/19 15:15 04/06/19 15:14 Morphine Sulfate (Morphine Sulfate) 2 mg Q4H PRN IVP Moderate Pain (Pain Scale 4-6) 03/07/19 15:15 03/14/19 15:14 Nitroglycerin (Ntg) 0.4 mg Q5M PRN SL Prn Chest Pain 03/07/19 15:15 04/06/19 15:14 Ondansetron HCl (Zofran) 4 mg Q6H PRN IVP Nausea & Vomiting 03/07/19 15:15 04/06/19 15:14 03/08/19 16:07 Polyethylene Glycol (Miralax) 17 gm DAILYPRN PRN ORAL Constipation 03/07/19 15:15 04/06/19 15:14 03/13/19 11:17 Temazepam (Restoril) 15 mg HSPRN PRN ORAL Insomnia 03/07/19 20:00 03/14/19 19:59 Clifford Mora MD March 14, 2019 06:51
--- NOTE | 2019-03-14 07:20 | NUR ---
NURSE NOTES: Report received from outgoing RN, rounds made. Patient sleeping in supine position in bed. No distress noted on RA. Right hand heplock intact. Call light in reach, bed in lowest position, will continue to monitor.
--- NOTE | 2019-03-14 07:31 | NUR ---
HAND-OFF: Report given to ASHOK Quintero.
[2019-03-14 08:00] VITALS: BP 124/62
--- NOTE | 2019-03-14 08:30 | NUR ---
NURSE NOTES: Patient alert, oriented x4, calm. Denies pain, NV, or SOB on RA. CMS +, skin warm, wiggles toes, pedal pulses palpable, no NT, hand grasps equal 3/5, pedal pushes, equal 4/5. Reinforced call light for safety, patient verbalized understanding.
--- NOTE | 2019-03-14 09:38 | Infectious Diseases Prog Note ---
Assessment/Plan Assessment/Plan Assessment: Febrile illness (not currently febrile)- now severe thrombocytopenia - ?Dengue LE weakness- r/o GBS, r/o ZIka, dengue (given recent travel to [facility]) -03/12 SP LP- OP 17cm H20 Wbc 2, prot 59, glucose 64; cx stain rare WBC, no organisms seen; cx NTD -MRI brain wo: Abnormal T2 hyperintense signal within cerebral sulci bilaterally predominating in the posterior part of the cerebrum. This is nonspecific, but the main concern would be an occult subarachnoid bleed. Differential diagnosis includes meningitis, leptomeningeal carcinomatosis or thickening, artifact related to elevated blood pool to CSF ratio. There is no evidence of diffusion restriction i.e. acute stroke to account for the finding. Further evaluation with gadolinium-enhanced MRI is recommended. Clinical correlation also needed. Noncontrast CT of the head is also recommended.Sinus disease. Right mastoiditis. -MRI t/ L spine w/wo: No evidence of compression of the spinal cord or cauda equina. No intrinsic cord abnormality, edema or other neuropathy identified. Moderate degenerative changes of the mid to lower lumbar spine characterized by degenerative disc disease and facet arthropathy. Disease is most severe at L4-5 which shows evidence of central spinal stenosis and narrowing of the lateral recess and moderate right foraminal stenosis. L3-4 Central stenosis also demonstrated. Other incidental findings as above. -CT: c/abd/p w/: No acute findings identified within the chest abdomen or pelvis. Large hiatal hernia. Cardiomegaly and arterial vascular disease. Moderate fatty liver. Prominence of the urinary bladder wall. Correlate for cystitis. Villalobos catheter in good position.Degenerative changes of the spine. Probable right renal cyst -CXR: No acute disease -Bcx Neg -influenza sc, HIV sc and VL, RPR, Crag neg -WNV IgG +, IgM neg- probable prior WNV vs cross reaction ( Positive for West Nile Virus IgG Antibody. Serological cross-reactivity among flaviviruses (e.g. Emmanuel encephalitis and dengue viruses) is common. Cross-reactivity has been noted in specimens containing rheumatoid factor and antibody to Cytomegalovirus (CMV) and Lukasz-Pike Virus (EBV). Severe thrombocytopenia; resolving -03/13 SP bone marrow biopsy Elevated AST; imporving Mild elevation CPK, SP Chronic LE weakness- prior workup many years ago but unknown results- able to ambulate w/ walker- but now weakness worse, moving fingers but not able to raise legs Plan: -Continue to monitor off abx -03/13 SP Ceftriaxone #7 -03/08 SP Vancomycin #2 -03/07 SP Cefepime #1 -F/u CSF culture, VDRL, Cocci, CrAg, Dengue, Zika, Chikunguya PCR, oligoclonal bands, MBP, WNV ab -f/u Cocci ab, Zika/Dengue/Chikungunya serology -f/u cx -Monitor CBC/CMP, temperatures -Neuro eval -heme onc f/u --Of note, had a long conversation with director park as the send out tests requested on 03/07 for Dengue, Zika, Chikungunya for serum, urine, CSF has not been done despite I called on 03/07 verifying these tests can be done and send to the send out lab. I particularly requested to be notified if any of them was not be able to be done or if there was any issue with any of the orders. 1 week later (today) I called requesting results and found out these were not done and I was not notified. 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 The same has been happening with the test Coccidoides ab that we never ever get a result on EMR. Subjective Allergies: Coded Allergies: No Known Allergies (Unverified , 03/07/19) Subjective afebrile no leukocytosis Objective Vital Signs Last 24 Hour Vital Signs Date Time Temp Pulse Resp B/P (MAP) Pulse Ox O2 Delivery O2 Flow Rate FiO2 03/14/19 07:10 78 17 94 Room Air 21 03/14/19 04:00 98.9 88 18 117/66 (83) 98 03/14/19 00:00 98.8 91 20 124/67 (86) 100 03/13/19 21:00 Room Air 03/13/19 20:00 99.0 92 20 119/70 (86) 98 03/13/19 19:54 92 18 98 Room Air 21 03/13/19 16:00 99.9 88 20 112/64 (80) 99 03/13/19 12:00 98.7 70 17 146/73 (97) 97 Height (Feet): 5 Height (Inches): 1.00 Weight (Pounds): 139 Objective General Appearance: WD/WN Lines, tubes and drains: peripheral HEENT: normocephalic, anicteric Neck: non-tender, supple, limited range of motion Respiratory/Chest: lungs clear Cardiovascular/Chest: normal rate Abdomen: normal bowel sounds Neuro: unable to elicit knee and ankle reflex, patient did have R>L leg spasticity, upward babinski on L foot, preserved sensation, no clonus Microbiology Date/Time Source Procedure Growth Status 03/12/19 14:20 Cerebral Spinal Fluid Gram Stain - Final Complete 03/12/19 14:20 Cerebral Spinal Fluid CSF Culture - Final Complete 03/12/19 14:20 Cerebral Spinal Fluid Gram Stain - Final Resulted 03/12/19 14:20 Cerebral Spinal Fluid CSF Culture - Preliminary NO GROWTH AFTER 48 HOURS Resulted Laboratory Tests Test 03/14/19 05:35 White Blood Count 7.3 K/UL (4.8-10.8) Red Blood Count 2.90 M/UL (4.20-5.40) L Hemoglobin 8.6 G/DL (12.0-16.0) L Hematocrit 26.1 % (37.0-47.0) L Mean Corpuscular Volume 90 FL (80-99) Mean Corpuscular Hemoglobin 29.5 PG (27.0-31.0) Mean Corpuscular Hemoglobin Concent 32.9 G/DL (32.0-36.0) Red Cell Distribution Width 13.7 % (11.6-14.8) Platelet Count 167 K/UL (150-450) Mean Platelet Volume 9.6 FL (6.5-10.1) Neutrophils (%) (Auto) 45.7 % (45.0-75.0) Lymphocytes (%) (Auto) 33.9 % (20.0-45.0) Monocytes (%) (Auto) 16.0 % (1.0-10.0) H Eosinophils (%) (Auto) 3.6 % (0.0-3.0) H Basophils (%) (Auto) 0.8 % (0.0-2.0) Sodium Level 141 MMOL/L (136-145) Potassium Level 4.1 MMOL/L (3.5-5.1) Chloride Level 107 MMOL/L (98-107) Carbon Dioxide Level 28 MMOL/L (21-32) Anion Gap 6 mmol/L (5-15) Blood Urea Nitrogen 10 mg/dL (7-18) Creatinine 0.5 MG/DL (0.55-1.30) L Estimat Glomerular Filtration Rate mL/min (>60) Glucose Level 98 MG/DL (74-106) Calcium Level 8.0 MG/DL (8.5-10.1) L Current Medications Medications (Trade) Dose Ordered Sig/Lisette Route PRN Reason Start Time Stop Time Status Last Admin Dose Admin Acetaminophen (Tylenol) 650 mg Q4H PRN ORAL fever (temp>100.5F) 03/07/19 15:15 04/06/19 15:14 Morphine Sulfate (Morphine Sulfate) 2 mg Q4H PRN IVP Moderate Pain (Pain Scale 4-6) 03/07/19 15:15 03/14/19 15:14 Nitroglycerin (Ntg) 0.4 mg Q5M PRN SL Prn Chest Pain 03/07/19 15:15 04/06/19 15:14 Ondansetron HCl (Zofran) 4 mg Q6H PRN IVP Nausea & Vomiting 03/07/19 15:15 04/06/19 15:14 03/08/19 16:07 Polyethylene Glycol (Miralax) 17 gm DAILYPRN PRN ORAL Constipation 03/07/19 15:15 04/06/19 15:14 03/13/19 11:17 Temazepam (Restoril) 15 mg HSPRN PRN ORAL Insomnia 03/07/19 20:00 03/14/19 19:59 Olga Lidia Renee M.D. March 14, 2019 09:38
[2019-03-14 12:00] VITALS: BP 118/66
--- NOTE | 2019-03-14 12:39 | Neurology Progress Note ---
Interim History Interim History ROS Limited/Unobtainable: No Complaints: LE Weakness Events: CSF unremarkable, afebrile, normalizing PLT, WBC Objective Physical Exam Last Vital Signs Date Time Temp Pulse Resp B/P (MAP) Pulse Ox O2 Delivery O2 Flow Rate FiO2 03/14/19 07:10 78 17 94 Room Air 21 03/14/19 04:00 98.9 117/66 (83) Laboratory Tests Test 03/14/19 05:35 White Blood Count 7.3 K/UL (4.8-10.8) Red Blood Count 2.90 M/UL (4.20-5.40) L Hemoglobin 8.6 G/DL (12.0-16.0) L Hematocrit 26.1 % (37.0-47.0) L Mean Corpuscular Volume 90 FL (80-99) Mean Corpuscular Hemoglobin 29.5 PG (27.0-31.0) Mean Corpuscular Hemoglobin Concent 32.9 G/DL (32.0-36.0) Red Cell Distribution Width 13.7 % (11.6-14.8) Platelet Count 167 K/UL (150-450) Mean Platelet Volume 9.6 FL (6.5-10.1) Neutrophils (%) (Auto) 45.7 % (45.0-75.0) Lymphocytes (%) (Auto) 33.9 % (20.0-45.0) Monocytes (%) (Auto) 16.0 % (1.0-10.0) H Eosinophils (%) (Auto) 3.6 % (0.0-3.0) H Basophils (%) (Auto) 0.8 % (0.0-2.0) Sodium Level 141 MMOL/L (136-145) Potassium Level 4.1 MMOL/L (3.5-5.1) Chloride Level 107 MMOL/L (98-107) Carbon Dioxide Level 28 MMOL/L (21-32) Anion Gap 6 mmol/L (5-15) Blood Urea Nitrogen 10 mg/dL (7-18) Creatinine 0.5 MG/DL (0.55-1.30) L Estimat Glomerular Filtration Rate mL/min (>60) Glucose Level 98 MG/DL (74-106) Calcium Level 8.0 MG/DL (8.5-10.1) L General: well developed, well nourished, no acute distress Head: normocophalic, atraumatic Neck: no rigidity EENT: benign Neurologic Exam Mental Status: awake, alert, oriented x4, normal cognition, good mathematical skills, normal recent memory, normal remote memory, preserved visuospatial function Speech: normal speech, no dysarthia Language: normal language, no aphasia Cranial Nerve II: fundus normal, visual noriega, no papilledema Cranial Nerves III, IV, : PERRLA, EOMI, pupils Cranial Nerve V: normal facial sensations, temporales function normal, masseters function normal, pterygoids function normal Cranial Nerve VII: no facial asymmetry, normal facial expressions Cranial Nerve VIII: normal hearing, no nystagmus Cranial Nerve IX: normal palate elevation, gag response Cranial Nerve X: no voice hoarseness Cranial Nerve XI: SCM symmetric, trapezii function normal Cranial Nerve XII: tongue midline, no tongue atrophy/fasciculations Motor System: normal muscle tone, no involuntary movement, no muscle wasting Sensory: normal pinprick, normal light touch Coordination: normal finger to nose bilaterally Deep Tendon Reflexes: 1+ bicep (L), 1+ bicep (R), 1+ tricep (L), 1+ tricep (R) , 1+ brachioradialis (L), 1+ brachioradialis (R), 1+ knee (L), 1+ knee (R), 1+ ankle (L), 1+ ankle (R) Reflexes: flexor plantar (L), flexor plantar (R); extensor plantar (L), extensor plantar (R) Objective LLE 2/5 RLE 3/5 weakest at hip flexors UEs full strength and AG FC x 4 Non focal on exam with generalized weakness. No facial weakness or tongue deviation Speech is in [place] but all normal. Impression/Recommendations Problems: (1) Thrombocytopenia Assessment & Plan: Heme/ Onc workup (2) Dehydration (3) Urinary tract infection (4) Bilateral leg weakness Assessment & Plan: MRI thoracic spine: Bone marrow signal and alignment are normal. The height of the vertebral bodies appears normal. There is no evidence of a compression fracture. There is no evidence of a disc herniation with normal appearance of the intervertebral discs. The spinal canal is widely patent at all levels within the thoracic spine. The spinal cord is normal in appearance. There is no cord edema, mass or myelomalacia. No epidural collection or other abnormal fluid collection identified. Mild hypertrophic spurring involving the thoracic facets noted at multiple levels. There is no evidence of significant foraminal stenosis or cord compression. No abnormal enhancement is identified. T7 vertebral hemangioma noted. There is a large hiatal hernia. Trace basilar pleural effusions are present. MRI lumbar spine: Bone marrow signal is normal. There is no evidence of bone marrow replacement, contusion or edema, fracture. The visualized part of the distal spinal cord is normal in appearance. Conus medullaris is seen at about lower part of L1 vertebra. There is no abnormal cord or nerve root enhancement. There are [id number] degenerative changes which will be described. The L1-2 disc is normal in appearance. There is no stenosis of the canal or foramen. L2-3 shows mild hypertrophy of the lumbar facets. No central or foraminal stenosis demonstrated. L3-4 shows mild central stenosis and narrowing of the lateral recesses due to facet arthropathy. No foraminal stenosis appreciated. L4-5 demonstrates mild central stenosis, narrowing of the lateral recess due to facet arthropathy and redundancy of ligamentum flavum. There is also mild concentric disc bulge associated moderate narrowing of the intervertebral disc and desiccation of the disc with anterolisthesis mild in degree at this level. Moderate right foraminal stenosis noted. L5-S1: The disc is normal in appearance. There is no central stenosis. Facet arthropathy noted. No significant foraminal stenosis appreciated. IMPRESSION: No evidence of compression of the spinal cord or cauda equina. No intrinsic cord abnormality, edema or other neuropathy identified. Moderate degenerative changes of the mid to lower lumbar spine characterized by degenerative disc disease and facet arthropathy. Disease is most severe at L4-5 which shows evidence of central spinal stenosis and narrowing of the lateral recess and moderate right foraminal stenosis. L3-4 Central stenosis also demonstrated. Other incidental findings as above. Please refer to the CT chest abdomen pelvis report as well No clear evidence for weakness demonstrated in patient clinically given normal cord signal on MRI The T2 FLAIR sequence demonstrates some areas of sulcal hyperintensity particularlyin the posterior aspects of both cerebral hemispheres but also within the rightfrontal region. The main concern is that there is an occult subarachnoid bleed. There is no mass effect or edema within the brain. The ventricles appear normal.Basal cisterns are normal. Flow voids are seen within the superior sagittal sinus,visualized part of the basilar artery and both ICA. There is no abnormal intra-axialor extra-axial fluid collection. As stated previously there is no diffusionrestriction. Empty sella is noted. There is a T2 hyperintense signal within the rightmastoid bone and some mucosal thickening within paranasal sinuses. IMPRESSION: Abnormal T2 hyperintense signal within cerebral sulci bilaterally predominating inthe posterior part of the cerebrum. T his is nonspecific, but the main concern would be an occult subarachnoid bleed. Differential diagnosis includes meningitis,leptomeningeal carcinomatosis or thickening, artifact related to elevated blood poolto CSF ratio. There is no evidence of diffusion restriction i.e. acute stroke toaccount for the finding. Further evaluation with gadolinium-enhanced MRI isrecommended. Clinical correlation also needed. Noncontrast CT of the head is alsorecommended. Sinus disease. Right mastoiditis. MRI w/ contrast NAD CSF culture without growth so far, pending , ID investigations pending Bone Marrow biopsy pending results for w/u of (5) Febrile illness, acute Assessment & Plan: LP results pending - CSF notable only for mildly elevated protein 56 No significant WBCs, cultures pending, encephalitis/ ID labs will require several days to weeks? DDX Encephalitis / Meningitis vs GBS Myalgia (unlikely) Status: stable, progressing Recommendations MRI Brain w/ contrast NAD CSF unremarkable with mildly elevated protein, HSV/VZV studies pending Symptoms unchanged but WBC normalized, normalizing platelets, and afebrile without any malaise Continue to track trend CBC/ CMP May follow up as outpatient with Heme/Onc and Neuro for ongoing investigations / pending results Stable for discharge from a neurological perspective . Karmen Mena N.P. March 14, 2019 12:38
--- NOTE | 2019-03-14 12:44 | Pulmonology Progress Note ---
Assessment/Plan Problems: (1) Febrile illness, acute (2) Recent foreign travel (3) Bilateral leg weakness Assessment/Plan spinal tap is done, clear, colorless, WBC 2, protein slightly elevated\ Bone marrow done, called pathology, nothing drastic on flow cytometry. It will take a few days to get the results from hemo-pathologist. f/u neuro recommendation check cultures, blood cultures are negative so far. f/u ID recommendation monitor off abx apparently some of the CSF studies were not sent out, Please refer to DR. Renee note from today Subjective ROS Limited/Unobtainable: No Constitutional: Reports: no symptoms HEENT: Repors: no symptoms Allergies: Coded Allergies: No Known Allergies (Unverified , 03/07/19) Objective Last 24 Hour Vital Signs Date Time Temp Pulse Resp B/P (MAP) Pulse Ox O2 Delivery O2 Flow Rate FiO2 03/14/19 07:10 78 17 94 Room Air 21 03/14/19 04:00 98.9 88 18 117/66 (83) 98 03/14/19 00:00 98.8 91 20 124/67 (86) 100 03/13/19 21:00 Room Air 03/13/19 20:00 99.0 92 20 119/70 (86) 98 03/13/19 19:54 92 18 98 Room Air 21 03/13/19 16:00 99.9 88 20 112/64 (80) 99 Intake and Output 03/13/19 03/14/19 19:00 07:00 Intake Total 360 ml Output Total 300 ml Balance 360 ml -300 ml Intake Oral 360 ml Output Urine Total 300 ml # Voids 3 Objective HEENT: normocephalic, atraumatic Respiratory/Chest: chest wall non-tender, lungs clear Cardiovascular: normal peripheral pulses, normal rate Abdomen: normal bowel sounds, no organomegaly Extremities: no cyanosis Skin: no lesions Microbiology Date/Time Source Procedure Growth Status 03/12/19 14:20 Cerebral Spinal Fluid Gram Stain - Final Complete 03/12/19 14:20 Cerebral Spinal Fluid CSF Culture - Final Complete 03/12/19 14:20 Cerebral Spinal Fluid Gram Stain - Final Resulted 03/12/19 14:20 Cerebral Spinal Fluid CSF Culture - Preliminary NO GROWTH AFTER 48 HOURS Resulted Laboratory Tests 03/14/19 05:35: White Blood Count 7.3, Red Blood Count 2.90L, Hemoglobin 8.6L, Hematocrit 26.1L , Mean Corpuscular Volume 90, Mean Corpuscular Hemoglobin 29.5, Mean Corpuscular Hemoglobin Concent 32.9, Red Cell Distribution Width 13.7, Platelet Count 167, Mean Platelet Volume 9.6, Neutrophils (%) (Auto) 45.7, Lymphocytes (% ) (Auto) 33.9, Monocytes (%) (Auto) 16.0H, Eosinophils (%) (Auto) 3.6H, Basophils (%) (Auto) 0.8, Sodium Level 141, Potassium Level 4.1, Chloride Level 107, Carbon Dioxide Level 28, Anion Gap 6, Blood Urea Nitrogen 10, Creatinine 0.5L, Estimat Glomerular Filtration Rate , Glucose Level 98, Calcium Level 8.0L Current Medications Medications (Trade) Dose Ordered Sig/Lisette Route PRN Reason Start Time Stop Time Status Last Admin Dose Admin Acetaminophen (Tylenol) 650 mg Q4H PRN ORAL fever (temp>100.5F) 03/07/19 15:15 04/06/19 15:14 Morphine Sulfate (Morphine Sulfate) 2 mg Q4H PRN IVP Moderate Pain (Pain Scale 4-6) 03/07/19 15:15 03/14/19 15:14 Nitroglycerin (Ntg) 0.4 mg Q5M PRN SL Prn Chest Pain 03/07/19 15:15 04/06/19 15:14 Ondansetron HCl (Zofran) 4 mg Q6H PRN IVP Nausea & Vomiting 03/07/19 15:15 04/06/19 15:14 03/08/19 16:07 Polyethylene Glycol (Miralax) 17 gm DAILYPRN PRN ORAL Constipation 03/07/19 15:15 04/06/19 15:14 03/13/19 11:17 Temazepam (Restoril) 15 mg HSPRN PRN ORAL Insomnia 03/07/19 20:00 03/14/19 19:59 Jenny Wilkerson MD March 14, 2019 12:44
--- NOTE | 2019-03-14 12:56 | NUR ---
*-* INSURANCE -* UPDATED CLINICALS AND REVIEW HAVE BEEN AXED TO: [facility] NCM:REJI P:[phone] F:[phone]
--- NOTE | 2019-03-14 14:37 | Hematology/Onc Progress Note ---
Assessment/Plan Assessment/Plan Assessment and Recs: # Chronic lymphocytic leukemia (2% of bone marrow) presented with thrombocytopenia and relative lymphocytosis - also could be due to infection, also at this time on abx, cefe and vanc, monitor abx closely, ALSO SMEAR reviewed --> Hep panel and HIV are negative --> CT of the a/p reviewed,and no cirrhosis/hsm reviewed, no predominant LAD, lymphadenopathy noted, no mass --> Peripheral smear has been reviewed, no blasts noted, 1% myelocytes, 1% metamyelocytes noted as well --> abx and other meds have been reviewed --> Transfuse if Plt < 20k and fever, or if Plt < 10k without fever --> heparin has been discontinued sq --> HIT Ab has been ordered --> has markedly improved trend 20k-->21k-->74k-->132k --> A BONE MARROW BIOPSY shows chronic lymphocytic leukemia --> will need to f/u closely and see as outpatient make sure does not have owrse lymphocytosis # Anemia of chronic disease due to underlying chronic medical issues, multifactorial --> No evidence of hemolysis is noted, peripheral smear has been reviewed. --> Hgb goal >7. Transfuse prn. --> Epogen or iron at this time is not particularly indicated --> ferritin is 1345 # Urinary tract infection --> blood and urine culture pending --> on abx as per id, vanc/cefepime # Dehydration --> IVF has been started # Lower extremity weakness Differential diagnosis include was not limited to Guillain-Pike v uti v generalized weakness --> LP done by neuro The timing of this note does not necessarily reflect the time of the patient was seen. Greatly appreciate consultation! Subjective Constitutional: Denies: no symptoms, chills, fever, malaise, weakness, other HEENT: Denies: no symptoms, eye pain, blurred vision, tearing, double vision, ear pain, ear discharge, nose pain, nose congestion, throat pain, throat swelling, mouth pain, mouth swelling, other Cardiovascular: Denies: no symptoms, chest pain, edema, irregular heart rate, lightheadedness, palpitations, syncope, other Respiratory: Denies: no symptoms, cough, shortness of breath, SOB with excertion, SOB at rest, sputum, wheezing, other Gastrointestinal/Abdominal: Denies: no symptoms, abdomen distended, abdominal pain, black stools, tarry stools, blood in stool, constipated, diarrhea, difficulty swallowing, nausea, poor appetite, poor fluid intake, rectal bleeding , vomiting, other Genitourinary: Denies: no symptoms, burning, discharge, frequency, flank pain, hematuria, incontinence, pain, urgency, other Neurologic/Psychiatric: Denies: no symptoms, anxiety, depressed, emotional problems, headache, numbness, paresthesia, pre-existing deficit, seizure, tingling, tremors, weakness, other Endocrine: Denies: no symptoms, excessive sweating, flushing, intolerance to cold, intolerance to heat, increased hunger, increased thirst, increased urine, unexplained weight gain, unexplained weight loss, other Hematologic/Lymphatic: Denies: no symptoms, anemia, easy bleeding, easy bruising, adenopathy, other Allergies: Coded Allergies: No Known Allergies (Unverified , 03/07/19) Subjective 03/10: platelets are stable, no events, no fevers noted, have placed orders for bone marrow biopsy 03/11: discussed her case with granddaughter, have placed biopsy order for tomorrow and dw path 03/12: no events noted, to get a bone marrow biopsy, no f/c 03/13: sick euthryoid, no fevers or chills noted, seen by endo, lp was done 03/14: bone marrow biopsy reviewed and shows CLL at 2% will need outpatient f/u Objective Objective Current Medications Medications (Trade) Dose Ordered Sig/Lisette Route PRN Reason Start Time Stop Time Status Last Admin Dose Admin Acetaminophen (Tylenol) 650 mg Q4H PRN ORAL fever (temp>100.5F) 03/07/19 15:15 04/06/19 15:14 Morphine Sulfate (Morphine Sulfate) 2 mg Q4H PRN IVP Moderate Pain (Pain Scale 4-6) 03/07/19 15:15 03/14/19 15:14 Nitroglycerin (Ntg) 0.4 mg Q5M PRN SL Prn Chest Pain 03/07/19 15:15 04/06/19 15:14 Ondansetron HCl (Zofran) 4 mg Q6H PRN IVP Nausea & Vomiting 03/07/19 15:15 04/06/19 15:14 03/08/19 16:07 Polyethylene Glycol (Miralax) 17 gm DAILYPRN PRN ORAL Constipation 03/07/19 15:15 04/06/19 15:14 03/13/19 11:17 Temazepam (Restoril) 15 mg HSPRN PRN ORAL Insomnia 03/07/19 20:00 03/14/19 19:59 Last 24 Hour Vital Signs Date Time Temp Pulse Resp B/P (MAP) Pulse Ox O2 Delivery O2 Flow Rate FiO2 03/14/19 07:10 78 17 94 Room Air 21 03/14/19 04:00 98.9 88 18 117/66 (83) 98 03/14/19 00:00 98.8 91 20 124/67 (86) 100 03/13/19 21:00 Room Air 03/13/19 20:00 99.0 92 20 119/70 (86) 98 03/13/19 19:54 92 18 98 Room Air 21 03/13/19 16:00 99.9 88 20 112/64 (80) 99 03/13/19 12:00 98.7 70 17 146/73 (97) 97 03/13/19 09:04 75 18 96 Room Air 21 03/13/19 09:00 Room Air 03/13/19 08:00 98.7 90 20 110/57 (74) 96 03/13/19 04:00 97.3 88 20 112/64 (80) 96 03/13/19 00:00 98.8 86 18 117/62 (80) 95 03/12/19 21:00 Room Air 03/12/19 20:00 98.0 86 20 104/63 (77) 99 03/12/19 19:54 73 18 96 Room Air 21 03/12/19 16:00 97.5 72 19 104/62 (76) 100 03/12/19 14:44 76 15 100/62 (75) 97 Intake and Output 03/13/19 03/14/19 19:00 07:00 Intake Total 360 ml Output Total 300 ml Balance 360 ml -300 ml Intake Oral 360 ml Output Urine Total 300 ml # Voids 3 Labs Test 03/12/19 07:23 03/12/19 14:00 03/12/19 14:20 03/13/19 05:35 White Blood Count 5.7 K/UL (4.8-10.8) 7.2 K/UL (4.8-10.8) Red Blood Count 3.11 M/UL (4.20-5.40) 3.03 M/UL (4.20-5.40) Hemoglobin 9.1 G/DL (12.0-16.0) 8.8 G/DL (12.0-16.0) Hematocrit 27.7 % (37.0-47.0) 27.1 % (37.0-47.0) Mean Corpuscular Volume 89 FL (80-99) 89 FL (80-99) Mean Corpuscular Hemoglobin 29.4 PG (27.0-31.0) 29.1 PG (27.0-31.0) Mean Corpuscular Hemoglobin Concent 33.0 G/DL (32.0-36.0) 32.6 G/DL (32.0-36.0) Red Cell Distribution Width 12.6 % (11.6-14.8) 13.3 % (11.6-14.8) Platelet Count 74 K/UL (150-450) 132 K/UL (150-450) Mean Platelet Volume 10.3 FL (6.5-10.1) 8.8 FL (6.5-10.1) Neutrophils (%) (Auto) % (45.0-75.0) 53.7 % (45.0-75.0) Lymphocytes (%) (Auto) % (20.0-45.0) 25.6 % (20.0-45.0) Monocytes (%) (Auto) % (1.0-10.0) 15.7 % (1.0-10.0) Eosinophils (%) (Auto) % (0.0-3.0) 3.8 % (0.0-3.0) Basophils (%) (Auto) % (0.0-2.0) 1.2 % (0.0-2.0) Differential Total Cells Counted 100 Neutrophils % (Manual) 43 % (45-75) Lymphocytes % (Manual) 38 % (20-45) Monocytes % (Manual) 17 % (1-10) Eosinophils % (Manual) 2 % (0-3) Basophils % (Manual) 0 % (0-2) Band Neutrophils 0 % (0-8) Platelet Estimate Decreased Platelet Morphology Normal Hypochromasia 1+ Sodium Level 142 MMOL/L (136-145) 141 MMOL/L (136-145) Potassium Level 3.5 MMOL/L (3.5-5.1) 3.6 MMOL/L (3.5-5.1) Chloride Level 108 MMOL/L (98-107) 106 MMOL/L (98-107) Carbon Dioxide Level 29 MMOL/L (21-32) 28 MMOL/L (21-32) Anion Gap 5 mmol/L (5-15) 7 mmol/L (5-15) Blood Urea Nitrogen 12 mg/dL (7-18) 13 mg/dL (7-18) Creatinine 0.6 MG/DL (0.55-1.30) 0.5 MG/DL (0.55-1.30) Estimat Glomerular Filtration Rate mL/min (>60) mL/min (>60) Glucose Level 93 MG/DL (74-106) 98 MG/DL (74-106) Calcium Level 8.1 MG/DL (8.5-10.1) 7.9 MG/DL (8.5-10.1) CSF Glucose 64 mg/dL (40-70) 64 mg/dL (40-70) CSF Total Protein 59 MG/DL (15-45) 59 MG/DL (15-45) CSF Appearance Clear (Clear) CSF Color Colorless (Colorless) CSF WBC 2 /CU MM (0-5) CSF RBC 12 /CU MM CSF Neutrophils % % CSF Lymphocytes % % CSF Monocytes % % CSF Crenated Cells % Total Bilirubin 0.2 MG/DL (0.2-1.0) Aspartate Amino Transf (AST/SGOT) 73 U/L (15-37) Alanine Aminotransferase (ALT/SGPT) 25 U/L (12-78) Alkaline Phosphatase 81 U/L (46-116) Total Creatine Kinase 90 U/L (26-308) Total Protein 6.6 G/DL (6.4-8.2) Albumin 2.5 G/DL (3.4-5.0) Globulin 4.1 g/dL Albumin/Globulin Ratio 0.6 (1.0-2.7) Test 03/14/19 05:35 White Blood Count 7.3 K/UL (4.8-10.8) Red Blood Count 2.90 M/UL (4.20-5.40) Hemoglobin 8.6 G/DL (12.0-16.0) Hematocrit 26.1 % (37.0-47.0) Mean Corpuscular Volume 90 FL (80-99) Mean Corpuscular Hemoglobin 29.5 PG (27.0-31.0) Mean Corpuscular Hemoglobin Concent 32.9 G/DL (32.0-36.0) Red Cell Distribution Width 13.7 % (11.6-14.8) Platelet Count 167 K/UL (150-450) Mean Platelet Volume 9.6 FL (6.5-10.1) Neutrophils (%) (Auto) 45.7 % (45.0-75.0) Lymphocytes (%) (Auto) 33.9 % (20.0-45.0) Monocytes (%) (Auto) 16.0 % (1.0-10.0) Eosinophils (%) (Auto) 3.6 % (0.0-3.0) Basophils (%) (Auto) 0.8 % (0.0-2.0) Sodium Level 141 MMOL/L (136-145) Potassium Level 4.1 MMOL/L (3.5-5.1) Chloride Level 107 MMOL/L (98-107) Carbon Dioxide Level 28 MMOL/L (21-32) Anion Gap 6 mmol/L (5-15) Blood Urea Nitrogen 10 mg/dL (7-18) Creatinine 0.5 MG/DL (0.55-1.30) Estimat Glomerular Filtration Rate mL/min (>60) Glucose Level 98 MG/DL (74-106) Calcium Level 8.0 MG/DL (8.5-10.1) Height (Feet): 5 Height (Inches): 1.00 Weight (Pounds): 139 Objective Gen: alert, GCS 15, non-toxic, obese, Chronically Ill Head: normocephalic Eyes: bilateral eye PERRL ENT: normal ENT inspection, normal voice Neck: limited range of motion Respiratory: lungs clear, normal breath sounds Cardiovascular: normal inspection, regular rate, rhythm Gastrointestinal: normal inspection, normal bowel sounds,nt, nd Neurologic: normal inspection, alert, oriented x3 Nicholas Coffey MD March 14, 2019 14:37
--- NOTE | 2019-03-14 14:39 | General Progress Note ---
Assessment/Plan Problem List: (1) Thrombocytopenia ICD Codes: D69.6 - Thrombocytopenia, unspecified SNOMED: 386640335 (2) Urinary tract infection ICD Codes: N39.0 - Urinary tract infection, site not specified SNOMED: 81565060 (3) Bilateral leg weakness ICD Codes: R29.898 - Other symptoms and signs involving the musculoskeletal system SNOMED: 7006531 (4) Febrile illness, acute ICD Codes: R50.9 - Fever, unspecified SNOMED: 526509201 (5) Dehydration ICD Codes: E86.0 - Dehydration SNOMED: 92027602 Status: stable, progressing Assessment/Plan: pt diet abx ivf heme eval dc to snf if clear Subjective Constitutional: Reports: weakness Allergies: Coded Allergies: No Known Allergies (Unverified , 03/07/19) All Systems: reviewed and negative except above Subjective sleepy calm Objective Last 24 Hour Vital Signs Date Time Temp Pulse Resp B/P (MAP) Pulse Ox O2 Delivery O2 Flow Rate FiO2 03/14/19 07:10 78 17 94 Room Air 21 03/14/19 04:00 98.9 88 18 117/66 (83) 98 03/14/19 00:00 98.8 91 20 124/67 (86) 100 03/13/19 21:00 Room Air 03/13/19 20:00 99.0 92 20 119/70 (86) 98 03/13/19 19:54 92 18 98 Room Air 21 03/13/19 16:00 99.9 88 20 112/64 (80) 99 Intake and Output 03/13/19 03/14/19 19:00 07:00 Intake Total 360 ml Output Total 300 ml Balance 360 ml -300 ml Intake Oral 360 ml Output Urine Total 300 ml # Voids 3 Laboratory Tests 03/14/19 05:35: White Blood Count 7.3, Red Blood Count 2.90L, Hemoglobin 8.6L, Hematocrit 26.1L , Mean Corpuscular Volume 90, Mean Corpuscular Hemoglobin 29.5, Mean Corpuscular Hemoglobin Concent 32.9, Red Cell Distribution Width 13.7, Platelet Count 167, Mean Platelet Volume 9.6, Neutrophils (%) (Auto) 45.7, Lymphocytes (% ) (Auto) 33.9, Monocytes (%) (Auto) 16.0H, Eosinophils (%) (Auto) 3.6H, Basophils (%) (Auto) 0.8, Sodium Level 141, Potassium Level 4.1, Chloride Level 107, Carbon Dioxide Level 28, Anion Gap 6, Blood Urea Nitrogen 10, Creatinine 0.5L, Estimat Glomerular Filtration Rate , Glucose Level 98, Calcium Level 8.0L Height (Feet): 5 Height (Inches): 1.00 Weight (Pounds): 139 General Appearance: lethargic EENT: normal ENT inspection Neck: normal alignment Cardiovascular: normal peripheral pulses, normal rate, regular rhythm Respiratory/Chest: chest wall non-tender, lungs clear, normal breath sounds Abdomen: normal bowel sounds, non tender, soft Extremities: normal inspection Neurologic: motor weakness Skin: normal pigmentation, warm/dry Jason Castanon DO March 14, 2019 14:39
--- NOTE | 2019-03-14 14:59 | NUR ---
RD ASSESSMENT & RECOMMENDATIONS SEE CARE ACTIVITY FOR COMPLETE ASSESSMENT DAILY ESTIMATED NEEDS: Needs based on General illness, 51.6kg adj 25-30 kcals/kg 9584-0651 total kcals 1-1.2 g protein/kg 52-62 g total protein 25-30 mL/kg 3315-2272 total fluid mLs NUTRITION DIAGNOSIS: Altered nutrition related lab values r/t clinical status as evidenced by low fibrinogen (130*), (+) WNV IgG, A1c 6.4. CURRENT DIET: Regular PO DIET RECOMMENDATIONS: continue Regular diet as tolerated ADDITIONAL RECOMMENDATIONS: 1) Add snacks in b/w meals 2) add Ensure qdaily w/ cont fair po intake 3) Lytes daily, replete as needed 4) Monitor BG, need for CCHO diet
--- NOTE | 2019-03-14 15:00 | NUR ---
NURSE NOTES: Clearance for discharge received from Dr. Castanon, Dr. Peña and Dr. Renee. Plans to transfer patient to [facility] today. Message left for Marcia VILLAREAL.
[2019-03-14 16:00] VITALS: BP 138/67
--- NOTE | 2019-03-14 16:30 | NUR ---
NURSE NOTES: Report called to Evy PULIDO at [facility], patient to transfer via ambulance at 1700.
--- NOTE | 2019-03-14 17:15 | NUR ---
NURSE NOTES: Spoke with granddaughter, Myra, informed her of patient transfer set for today. IV heplock discontinued, no active bleeding. Patient transferred via [facility], with all belongings in stable condition.
[2019-03-14] MEDS ORDERED: NS 275ml ONE (17:22)
[2019-03-14] MEDS ORDERED: Tubing IV Secondary IV ONE (17:22)
[2019-03-14] MEDS ORDERED: 1/2 NS 1000ml IV ONE (17:22)
--- NOTE | 2019-03-15 10:42 | Discharge Summary ---
Discharge Summary Discharge Summary _ DATE OF ADMISSION: 03/07/2019 DATE OF DISCHARGE: 03/14/2019 DISCHARGED BY: Dr Castanon REASON FOR ADMISSION: 83 years old female with past medical history of arthritis, glaucoma , presented to emergency department with complaint of fever for 2 days. Patient recently returned from a trip to [facility], where she was for about 3 weeks. She reported increased weakness in bilateral lower extremity for few days. Patient also reported dysuria for the last few months . She reported one episode of vomiting. She reported rash to both legs , which she described as insect bites. She denied any recent trauma or injury . Patient usually able to ambulate with walker, but recently had increased difficulty with ambulation . Upon evaluation vital signs were stable , no fevers . Laboratory work-up revealed no leukocytosis , stable hemoglobin and hematocrit. Platelet count 103. Lactic acid 1.2. Sed rate 37. Troponin - 0.042. Stable electrolytes. BUN 26, creatinine 0.7. AST 95. Glucose 124. Urinalysis revealed mild pyuria , few bacteria , +[address] chest , abdomen and pelvis revealed no acute findings . Large hiatal hernia noted. Moderate fatty liver. Prominence of the urinary bladder wall. Cardiomegaly and arterial vascular disease. Chest x-ray demonstrated no acute cardiopulmonary pathology. Patient subsequently was admitted for further management. CONSULTANTS: neurologist Dr. Palafox pulmonary Dr. Wilkerson ID specialist Dr. Soriano clam grader/oncologist Dr. Coffey damper worker Dr. Mora [facility] COURSE: Patient admitted to medical -surgical floor. Patient started on empiric antibiotics. Patient subsequently undergone MRI of cervical and lumbar spine , which revealed no evidence of cord compression. DVT prophylaxis provided. Supplemental oxygen was on board as needed to keep pulse oximetry above 92%. Pulse oximetry was stable on room air. Neurologist followed. Initial MRI of the brain revealed nonspecific but abnormal results concerning of the occult subarachnoid bleeding . MRI with contrast was repeated on 03/09, which revealed no evidence of acute infarct, no abnormal enhancement to suggest evidence of hemorrhage. Upholstery Cleaner /oncologist followed. Bone marrow biopsy revealed evidence of chronic lymphocytic leukemia. Patient will need to follow-up closely as outpatient . Hemoglobin hematocrit were closely monitored with goal to keep hemoglobin above 7. Anemia work-up revealed evidence of anemia of chronic disease . Ferritin elevated. Epogen or iron at this time were not particularly indicated. Prior to discharge hemoglobin 8.6 hematocrit 26.1. Platelet count was closely monitored. Heparin stopped. Heparin antibody negative. Platelet count trended up 167 prior to discharge. ID specialist followed . Patient presented with complaint of acute fever, but was afebrile in the hospital. Patient develop severe thrombocytopenia, lowest platelet count -15, along with lower extremity weakness and rash in the setting of recent traveling to [facility]. Infectious disease specialist suspected Dengue virus infection due to recent travel to [facility] . Infectious disease specialist wanted to rule out GBS, Zika or possible dengue infection. This serology is still pending. Patient undergone lumbar puncture. Cerebrospinal fluid culture was negative. Some of the cerebrospinal fluid results were still pending, including VZV. Cerebrospinal fluid for herpes was negative . Blood cultures were negative. Influenza screen test was negative. Urine culture was negative. HIV and RPR were nonreactive . Hepatitis panel was negative. HSV by PCR negative. Cryptococcal antigen negative. Patient demonstrated positive West Nile virus IgM IgG antibody. However per ID specialist, serological cross-reactivity among flavivirus (e.g. Emmanuel encephalitis and dengue viruses) common. Cross-reactivity has been noted in specimens containing rheumatoid factor and antibody to Cytomegalovirus (CMV) and Lukasz-Pike Virus (EBV). Severe thrombocytopenia was resolving. Prior to discharge platelet count 167. Patient completed treatment for possible UTI. Golf Manager followed. Initially noted elevated TSH. Repeated TSH still elevated along with elevated free T4. T Thyroid peroxidase antibody within normal limits. Patient was never treated with levothyroxine. 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 No need to start treatment with levothyroxine. Golf Manager recommended to repeat thyroid function test as outpatient in 3 to 4 weeks. Patient was working with physical therapist. Fall precaution maintained. Supportive care provided. Pain management was addressed as needed. Bowel regimen instituted. Patient clinically stabilized and was ready for transfer back to residential facility for continuation of care FINAL DIAGNOSES: Chronic lymphocytic leukemia Acute febrile illness Recent foreign travel Lower extremity weakness Possible Dengue virus infection Probable UTI Severe thrombocytopenia Dehydration Anemia of chronic disease Sick euthyroidism DISCHARGE MEDICATIONS: See Medication Reconciliation list. DISCHARGE INSTRUCTIONS: Patient was discharged to the residential facility. Follow up with medical doctor at the facility. I have been assigned to dictate discharge summary for this account. I was not involved in the patient's management. Lindy Del Toro NP March 15, 2019 10:42
--- NOTE | 2019-03-15 11:07 | NUR ---
*-* INSURANCE -* DISCHARGE SUMMARY HAVE BEEN AXED TO: [facility] NCM:REJI P:[phone] F:[phone]
== END 2019-03-14 17:23 | DRG 723 ==
LOC: EMR 01:57 → 2W 03:24 → EDBEDREQ 04:17 → 2W 07:22 → 4E 14:58
PROC: 009U3ZX Drainage of Spinal Canal, Percutaneous Approach, Diagnostic (ICD-10-PCS; principal; 2019-03-12)
PROC: 07DR3ZX Extraction of Iliac Bone Marrow, Percutaneous Approach, Diagnostic (ICD-10-PCS; 2019-03-13)
DX: A90 Dengue fever [classical dengue] (principal); C91.10 Chronic lymphocytic leukemia of B-cell type not having achieved remission; D69.6 Thrombocytopenia, unspecified; N39.0 Urinary tract infection, site not specified; E07.81 Sick-euthyroid syndrome; M62.81 Muscle weakness (generalized); E86.0 Dehydration; H40.9 Unspecified glaucoma
CPT/HCPCS: 36415; 70551; 70553; 71045; 71260; 72157; 72158; 74177; 80048; 80053; 81003; 82550; 82553; 82607; 82728; 82746; 82784; 82945; 83036; 83540; 83550; 83605; 83615; 83735; 83873; 83916; 84100; 84157; 84165; 84439; 84443; 84484; 85007; 85025; 85044; 85384; 85610; 85651; 86376; 86592; 86635; 86703; 86705; 86709; 86710; 86787; 86790; 86803; 86850; 86900; 86901; 87040; 87070; 87086; 87116; 87205; 87340; 87449; 87529; 87536; 89051; 93005; 94664; 96361; 96365; 99285; A9585; J2405

== ENCOUNTER 2020-02-04 10:32 | Emergency (ER) | payer MEDICARE, OTHER ==
[~2020-02-04] VITALS: Ht 154.9 cm; Wt 59.0 kg
[~2020-02-04 10:32] MED LIST: ACETAMINOPHEN500 M5 ORAL; MIRALAX17 G2 ORAL; NITROSTAT0.4 M1 SL; RESTORIL15 MG ORAL; [UNRECOGNIZED DRUG - REMARK]
[2020-02-04 10:56] VITALS: BP 152/80
[2020-02-04] MEDS ORDERED: Tylenol #3 tab (300mg/30mg) PO ONE (11:00)
[2020-02-04 12:39] VITALS: BP 112/65
--- NOTE | 2020-02-04 13:31 | Diagnostic Imaging Report ---
Indication: Right knee pain, status post fall Technique: 3 views of the right knee Comparison: None Findings: 2 cortical breaks are seen at the medial tibial metadiaphysis, and another cortical break is seen between the tibial spines. In addition, there is slight downward displacement of the medial tibial plateau. Although fracture line is not visualized in the medullary space, there is presumably a fracture running from the central tibial articular surface to the medial metadiaphysis. There is questionably minimal joint effusion. No other fractures are demonstrated. No dislocations. Joint spaces are preserved. Impression: Positive for slightly depressed medial tibial plateau fracture, as described
--- NOTE | 2020-02-04 13:33 | Diagnostic Imaging Report ---
Indication: Reason For Exam: PAIN Technique: 2 views of the right tibia and fibula Comparison: none Findings: There is a slightly depressed medial tibial plateau fracture. No tibial or fibular shaft fracture demonstrated. No radiopaque foreign body. Impression: Positive for medial tibial plateau fracture, also described on separate knee radiograph report. No tibial or fibular shaft fracture demonstrated.
[2020-02-04] MEDS ORDERED: TYLENOL EXTRA500 MG ORAL (13:56)
[2020-02-04 14:10] VITALS: BP 112/65
--- NOTE | 2020-02-04 14:27 | Emergency Room Report ---
History of Present Illness General Chief Complaint: Multiple Trauma/Fall Source: Patient Present Illness HPI 84-year-old female presents complaining of right knee pain. Fell at home couple days ago. Brought in by daughter. Pain is throbbing, 7 out of 10, nonradiating. Unable to bear weight. Denies any other injuries. No other aggravating relieving factors. Denies any other associated symptoms Allergies: Coded Allergies: No Known Allergies (Unverified , 03/07/19) COVID-19 Screening Contact w/high risk pt: No Recent Travel to affected area: No Experienced COVID-19 symptoms?: No Patient History Past Medical History: none Past Surgical History: none Pertinent Family History: none Social History: Denies: smoking, alcohol use, drug use Now: No Immunizations: UTD Reviewed Nursing Documentation: PMH: Agreed; PSxH: Agreed Nursing Documentation-PMH Past Medical History: No History, Except For Hx Cardiac Problems: No Hx Cancer: No Hx Gastrointestinal Problems: No Hx Neurological Problems: No Review of Systems All Other Systems: negative except mentioned in HPI Physical Exam Vital Signs Date Time Temp Pulse Resp B/P (MAP) Pulse Ox O2 Delivery O2 Flow Rate FiO2 02/04/20 10:47 97.5 94 20 152/80 (104) 100 Room Air Sp02 EP Interpretation: reviewed, normal General Appearance: no apparent distress, alert, GCS 15, non-toxic Head: normocephalic Eyes: bilateral eye normal inspection, bilateral eye PERRL ENT: normal ENT inspection Neck: normal inspection Respiratory: normal inspection Cardiovascular #1: normal inspection Gastrointestinal: normal inspection Rectal: deferred Genitourinary: no CVA tenderness Musculoskeletal: tender - R knee Neurologic: alert, motor strength/tone normal, oriented x3, sensory intact, responsive, speech normal Psychiatric: normal inspection Skin: no rash Lymphatic: normal inspection Procedures Splinting Splinting : Consent: Verbal Pre-Made Type: knee immobilizer Pre-Proc Neuro Vasc Exam: normal Post-Proc Neuro Vasc Exam: normal Patient Tolerated: Well Complications: None Medical Decision Making Diagnostic Impression: Primary Impression: Tibial plateau fracture, right Qualified Codes: S82.141A - Displaced bicondylar fracture of right tibia, initial encounter for closed fracture ER Course Hospital Course 84-year-old F presents to ED complaining of R knee pain s/p trip and fall Differential diagnoses include: Fracture, dislocation, sprain, contusion Clinical course Patient placed on stretcher. After initial history and physical, I ordered pain medications and Xrays of R tibfib/knee Xrays read shows a mildly depressed tibial plateau fracture. No signs of compartment syndrome. Discussed findings with patient and daughter. Placed in knee immobilizer. Will discharge home. I will provide orthopedic referral Diagnosis - tibial plateau fx, right Stable and discharged to home. apply ice, keep elevated. weight bear as tolerated. Followup with PMD/ortho. Return to ED if symptoms recur or worsen Other X-Ray Diagnostic Results Other X-Ray Diagnostic Results #1: X-Ray ordered: R tibfib # of Views/Limited Vs Complete: 2 View Indication: Pain EP Interpretation: Yes Interpretation: no dislocation, no soft tissue swelling, other - mildy depressed tibial plateau fx Impression: Other - tibial plateau fx Electronically Signed by: Electronically signed by Alton Wild MD Other X-Ray Diagnostic Results #2: X-Ray ordered: R knee # of Views/Limited Vs Complete: 3 View Indication: Pain EP Interpretation: Yes Interpretation: no dislocation, no soft tissue swelling, no fractures Impression: No acute disease Electronically Signed by: Electronically signed by Alton Wild MD Last Vital Signs Date Time Temp Pulse Resp B/P (MAP) Pulse Ox O2 Delivery O2 Flow Rate FiO2 02/04/20 12:39 97.5 69 24 112/65 98 Room Air Status: improved Disposition: HOME, SELF-CARE Condition: Stable Scripts Acetaminophen* (TYLENOL EXTRA STRENGTH*) 500 Mg Tablet 500 MG ORAL Q8H PRN for Prn Headache/Temp > 101, #30 TAB 0 Refills Prov: Alton Wild MD 02/04/20 Referrals: NON PHYSICIAN (PCP) Mariusz Lane MD Patient Instructions: Tibial Plateau Fracture With Rehab-[facility] Alton Wild MD Feb 04, 2020 14:27
== END 2020-02-04 14:10 | disposition home or self-care (01) ==
LOC: EMR 11:10
DX: S82.141A Displaced bicondylar fracture of right tibia, initial encounter for closed fracture (principal); W01.0XXA Fall on same level from slipping, tripping and stumbling without subsequent striking against object, initial encounter; Y92.9 Unspecified place or not applicable
CPT/HCPCS: 29505; 99284